=== PATIENT | female | born 1980 | race African-American/Black ===

== ENCOUNTER 2016-06-25 08:02 | Inpatient (IN) | payer BC, OTHER ==
[2016-06-25] MEDS ORDERED: GLYCOPYRROLATE INJ 0.4 MG/2 ML VIAL ONE (08:07)
[2016-06-25] MEDS ORDERED: NEOSTIGMINE METHYLSULFATE 10 MG/10 ML VIAL ONE (08:07)
[2016-06-25] MEDS ORDERED: SUCCINYLCHOLINE CHLORIDE INJ 200 MG/10 ML VIAL ONE (08:07)
[2016-06-25] MEDS ORDERED: ROCURONIUM BROMIDE INJ 50 MG/5 ML VIAL IV ONE (08:07)
[2016-06-25] MEDS ORDERED: ACETAMINOPHEN 325 MG TABLET PO ONE (10:14)
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
[2016-06-25 10:34] LABS: ABSOLUTE BASOPHILS # (AUTO) 0.1 10^3/uL (0.0-0.2); ABSOLUTE EOSINOPHILS # (AUTO) 0.2 10^3/uL (0.0-0.6); ABSOLUTE LYMPHOCYTES (AUTO) 1.7 10^3/uL (0.5-4.7); ABSOLUTE MONOCYTES (AUTO) 0.7 10^3/uL (0.1-1.4); ABSOLUTE NEUT (AUTO) 11.9 10^3/uL (1.7-8.2); BASOPHILS % (AUTO) 0.7 % (0-2); EOSINOPHILS % (AUTO) 1.5 % (0-6); HEMATOCRIT 36.3 % (36.0-47.0); HEMOGLOBIN 11.8 g/dL (12.0-15.5); HGB HCT DIFFERENCE -0.9; LYMPHOCYTES % (AUTO) 11.6 % (13-45); MEAN CORPUSCULAR HEMOGLOBIN 25.9 pg (27.0-33.4); MEAN CORPUSCULAR HGB CONC 32.5 g/dL (32.0-36.0); MEAN CORPUSCULAR VOLUME 80 fl (80-97); MONOCYTES % (AUTO) 5.1 % (3-13); RED BLOOD COUNT 4.55 10^6/uL (3.72-5.28); RED CELL DISTRIBUTION WIDTH 17.6 % (11.5-14.0); SEGMENTED NEUTROPHILS % (AUTO) 81.1 % (42-78); WHITE BLOOD COUNT 14.7 10^3/uL (4.0-10.5)
[2016-06-25 10:57] LABS: APPEARANCE,URINE SLIGHTLY-CLOUDY; BILIRUBIN,URINE NEGATIVE (NEGATIVE); GLUCOSE, URINE NEGATIVE (NEGATIVE); KETONES,URINE NEGATIVE (NEGATIVE); LEUKOCYTE ESTERASE,URINE NEGATIVE (NEGATIVE); NITRITE,URINE NEGATIVE (NEGATIVE); PROTEIN,URINE NEGATIVE (NEGATIVE); URINE SPECIFIC GRAVITY 1.016
[2016-06-25 11:01] LABS: ALANINE AMINOTRANSFERASE 20 U/L (9-52); ALBUMIN 3.5 g/dL (3.5-5.0); ALKALINE PHOSPHATASE 147 U/L (38-126); ANION GAP 11 (5-19); ASPARTATE AMINO TRANSFERASE 13 U/L (14-36); BILIRUBIN,TOTAL 0.5 mg/dL (0.2-1.3); BLOOD UREA NITROGEN 12 mg/dL (7-20); CALCIUM 9.9 mg/dL (8.4-10.2); CARBON DIOXIDE 30 mmol/L (22-30); CHLORIDE 101 mmol/L (98-107); CREATININE RESULT 0.66 mg/dL (0.52-1.25); GLUCOSE 87 mg/dL (75-110); SODIUM 141.5 mmol/L (137-145); TOTAL PROTEIN 7.5 g/dL (6.3-8.2)
[2016-06-25] MEDS ORDERED: PIPERACILLIN/TAZOBACTAM 4.5 GM VIAL IV ONE (13:14)
[2016-06-25] MEDS ORDERED: NORMAL SALINE 1000 ML 1,000 ML IV PRN (13:14)
[2016-06-25] MEDS ORDERED: MORPHINE SULFATE 10 MG/ML INJ IV ONE (14:05)
[2016-06-25] MEDS ORDERED: ACETAMINOPHEN 100 ML IV ONE (17:31)
[2016-06-25] MEDS ORDERED: FENTANYL CITRATE INJ/PF 100 MCG/2 ML AMPUL ONE ×2 (17:31→19:35)
[2016-06-25] MEDS ORDERED: HYDROMORPHONE HCL INJ/PF 2 MG/ML AMPULE ONE (17:31)
[2016-06-25] MEDS ORDERED: PROPOFOL INJ 200 MG/20 ML VIAL IV ONE (17:31)
[2016-06-25] MEDS ORDERED: MIDAZOLAM 2 MG/2 ML INJ ONE (17:31)
[2016-06-25] MEDS ORDERED: BUPIVACAINE HCL 0.5%-EPI 1:200000 INJ/PF 30 ML VIAL ONE (17:48)
[2016-06-25] MEDS ORDERED: ONDANSETRON HCL INJ/PF 4 MG/2 ML SDV IV PRN ×2 (18:16→20:48)
[2016-06-25] MEDS ORDERED: FENTANYL CITRATE INJ/PF 100 MCG/2 ML AMPUL IV PRN ×3 (18:16)
[2016-06-25] MEDS: FENTANYL CITRATE INJ/PF 100 MCG/2 ML AMPUL ONE ×2 (20:38→20:50)
[2016-06-25] MEDS ORDERED: HYDROCODONE/ACETAMINOPHEN 5-325 MG TABLET PO PRN (20:47)
[2016-06-25] MEDS: HYDROMORPHONE HCL INJ/PF 2 MG/ML AMPULE ONE ×4 (21:07→21:37)
[2016-06-25] MEDS: PIPERACILLIN/TAZOBACTAM 3.375 GM VIAL IV PRN (21:45)
[2016-06-25] MEDS ORDERED: HYDROMORPHONE HCL INJ/PF 2 MG/ML AMPULE IV PRN (21:59)
[2016-06-25] MEDS ORDERED: PIPERACILLIN SODIUM/TAZOBACTAM 3.375 GM in NORMAL SALINE 100 ML IV SCH (22:00)
[2016-06-25] MEDS: HYDROMORPHONE HCL INJ/PF 2 MG/ML AMPULE IV PRN (22:52)
[2016-06-26] MEDS: POTASSI CL 20 MEQ/D5-1/2NS 1L 1000 ML IV PRN ×3 (00:53→23:09)
[2016-06-26] MEDS ORDERED: PIPERACILLIN/TAZOBACTAM 3.375 GM VIAL IV ONE (01:00)
[2016-06-26] MEDS: HYDROMORPHONE HCL INJ/PF 2 MG/ML AMPULE IV PRN ×7 (01:41→22:51)
[2016-06-26] MEDS: PIPERACILLIN/TAZOBACTAM 3.375 GM VIAL IV PRN (04:18)
[2016-06-26] MEDS ORDERED: SIMETHICONE 80 MG TAB.CHEW PO ONE (04:30)
--- NOTE | 2016-06-26 05:13 | OPERATIVE REPORT E ---
Operative Report NAME: DON KING : 1980 AGE: 35Y DATE OF SURGERY: 06/25/2016 ROOM: 211 PREOPERATIVE DIAGNOSIS: 1. Intra-abdominal abscess. 2. Pericecal abscess. 3. Possible cecal diverticulitis. 4. Possible Crohn disease. 5. Possible appendicular abscess. POSTOPERATIVE DIAGNOSES: 1. Necrotic cecum. 2. Pericecal abscess, uncertain etiology could be perforated cecal diverticulitis, could be perforated Crohn disease or long time complicated appendicitis with abscess with a necrotic cecum. OPERATION: 1. Laparoscopic-assisted drainage of intra-abdominal paracolic, pericecal abscess. 2. Laparoscopic-assisted resection of the right colon up to ascending colon terminal ileum with ileum to distal ascending colon anastomosis of the right colon dissection. SURGEON: DIRK FLORES M.D. ANESTHESIA: General. BLOOD LOSS: Less than 100 mL. SPECIMENS: Ileostomy segment of ileum. HISTORY/INDICATIONS: The patient presented to the Emergency Room with a 2-week history of increasing abdominal pain, nausea and fever. Upon examination in the Emergency Room, she did have a pretty severe tenderness. CT scan revealed pericecal paracolic abscess, possibly cecal perforation. She was noted to have an emergency surgery prepared for emergency room, taken to operating room with informed consent with the possibility of bowel resection. DESCRIPTION OF OPERATION: The patient was given Zosyn which was continued. Abdomen was cleansed and draped as a sterile field. Initially, a 5 mm trocar inserted in the suprapubic area and another 5 mm in the supraumbilical area with OPTIVIEW and a 12 mm in the left upper quadrant area. Findings, a large phlegmon in the pericecal paracolic area, and the cecum itself was pretty necrotic, gangrenous with a lot of induration around that area. Initially, terminal ileum and the cecum was mobilized lateral to medial clearly, safely, securely. Once it was mobilized, there was a large abscess in the pericecal area beneath the ascending colon. It was drained completely. After that, once the abscess was drained from the terminal ileum and hepatic flexure, it was pretty obvious that we needed to dissect the cecum, terminal ileum, and ascending colon. For that reason, terminal ileum completely mobilized; and then the transverse colon was mobilized from mid transverse colon to hepatic flexure area. Hepatic flexure at this point was completely mobilized. After that, the ileocolic ligaments were divided after dissecting away from the duodenum. Once it was completely mobilized and devascularized after draining of the abscess, now the mid abdomen around the periumbilical area was opened up, wound protector was placed through which the specimen , which was basically terminal ileum and also ascending colon. Now, the terminal ileum was resected approximately 4-5 cm away from the cecum and then the ascending colon was divided, close to hepatic flexure area. After that, specimen achieved and then abdominal cavity was copiously irrigated and suctioned out, and then anastomosis was performed within the terminal ileum and distal ascending colon closed to hepatic flexure by using a #60 stapler and 3 points of #60 staplers closed by using another thicker stapler. Stapling corners were reinforced by using 2-0 and 3-0 silk sutures in inverting seromuscular sutures. After having perfect anastomosis with excellent vascularity confirmed, abdominal cavity again copiously irrigated and suctioned out, and then a VILMA drain was placed in the right paracolic gutter, brought out through 5 mm trocar incision in the suprapubic area. After that, omentum was placed on top of the bowel loops, and then adhesive barrier was placed within the mid abdomen, small incisions was closed by using #1 looped PDS for the fascia and the subcutaneous layers closed by using 3-0 Vicryl. Skin was left open. Other trocar incision closed by using 3-0 Vicryl. Dressing was then applied. The patient was stable through the operation without any problems, shifted to recovery room in stable condition. DICTATING PHYSICIAN: DIRK FLORES M.D. [id number] [facility]#: [id number] 2017 ID: [id number] JOB#: [id number] ACCT: [id number] cc:DIRK FLORES M.D. > MTDD
[2016-06-26] MEDS: KETOROLAC TROMETHAMINE INJ/PF 30 MG/1 ML SDV INJ PRN ×2 (06:39→14:19)
--- NOTE | 2016-06-26 06:53 | PDOC PROGRESS REPORT ---
Subjective Progress Note for:: 06/26/16 Subjective:: c/o abdominal pain post op Physical Exam Vital Signs: Temp Pulse Resp BP Pulse Ox 98.2 F 96 16 138/78 H 100 06/26/16 00:49 06/26/16 00:49 06/26/16 00:49 06/26/16 00:49 06/26/16 00:49 Intake & Output 06/24/16 06/25/16 06/26/16 05:59 06:59 06:59 Intake Total 8900 Output Total 6497.5 Balance 2402.5 Weight 111.5 kg GI/Abdominal exam: PRESENT: other - Soft abdomen VILMA drain Serous Results Impressions: Transvaginal US 06/25/16 09:46 IMPRESSION: 1. Status post hysterectomy and right oophorectomy. Incidental left ovarian cyst without suspicious features. Abdomen/Pelvis CT 06/25/16 11:38 IMPRESSION: 1. Pathology in the right lower quadrant appears to be predominantly related to the base of the cecum. Suspect contained perforation with abscess here. This could be related to right colonic diverticulitis or other inflammatory disease. No overt inflammation of the terminal ileum. The appendix looks fairly normal. Appendicitis with periappendiceal abscess is therefore felt to be unlikely. Malignancy is also in the differential, but felt to be less likely in a patient of this age without any reported risk factors for such. Assessment & Plan - Plan Summary Plan Summary: Gangrenous / necrotic cecum with abscess s/p lap assisted right colectomy , with drainage of abscess post op pain, Sri Pain management IV antibiotics Ambulate
[2016-06-26] MEDS: ENOXAPARIN SODIUM INJ 40 MG/0.4 ML DISP.SYRIN SUBCUT SCH (08:22)
--- NOTE | 2016-06-26 11:08 | PDOC PROGRESS REPORT ---
Subjective Progress Note for:: 06/26/16 Subjective:: Patient is possibly 15 hours status post arthroscopic hand-assisted right hemicolectomy for inflammatory mass involving the cecum. She's doing well overnight. She still has Flores catheter and nasogastric tube in position. She is requiring pain medication. Physical Exam Vital Signs: Temp Pulse Resp BP Pulse Ox 98.9 F 75 20 115/85 98 06/26/16 10:00 06/26/16 10:00 06/26/16 10:00 06/26/16 10:00 06/26/16 10:00 Intake & Output 06/25/16 06/26/16 06/27/16 06:59 06:59 06:59 Intake Total 8900 Output Total 6497.5 Balance 2402.5 Weight 111.5 kg General appearance: PRESENT: other - Very sleepy GI/Abdominal exam: PRESENT: other - Abdominal incision dry and intact. The abdomen is soft no peritoneal signs no rigidity Results Impressions: Transvaginal US 06/25/16 09:46 IMPRESSION: 1. Status post hysterectomy and right oophorectomy. Incidental left ovarian cyst without suspicious features. Abdomen/Pelvis CT 06/25/16 11:38 IMPRESSION: 1. Pathology in the right lower quadrant appears to be predominantly related to the base of the cecum. Suspect contained perforation with abscess here. This could be related to right colonic diverticulitis or other inflammatory disease. No overt inflammation of the terminal ileum. The appendix looks fairly normal. Appendicitis with periappendiceal abscess is therefore felt to be unlikely. Malignancy is also in the differential, but felt to be less likely in a patient of this age without any reported risk factors for such. No recent labs today. Assessment & Plan - Diagnosis (1) Mass of cecum Is this a current diagnosis for this admission?: YesPlan: Patient is a 15 hours status post exploratory laparoscopic surgery were right hemicolectomy for cecal mass presumably due to localized cecal perforation with abscess. She is doing reasonably well recorded premedication. She is hemodynamically stable We will discontinue Flores catheter, and clamp NG tube. The ng tube may Need to stay in place. We will ambulate the patient as well. Pathology report pending. We will also continue intravenous antibiotics. - Time Time Spent with patient: 15-24 minutes
[2016-06-26] MEDS: PIPERACILLIN SODIUM/TAZOBACTAM 3.375 GM in NORMAL SALINE 100 ML IV SCH ×2 (13:16→18:38)
[2016-06-27] MEDS: KETOROLAC TROMETHAMINE INJ/PF 30 MG/1 ML SDV INJ PRN ×3 (00:54→11:57)
[2016-06-27] MEDS: PIPERACILLIN SODIUM/TAZOBACTAM 3.375 GM in NORMAL SALINE 100 ML IV SCH ×3 (01:15→18:02)
[2016-06-27] MEDS: HYDROMORPHONE HCL INJ/PF 2 MG/ML AMPULE IV PRN ×2 (04:07→08:25)
[2016-06-27] MEDS: ENOXAPARIN SODIUM INJ 40 MG/0.4 ML DISP.SYRIN SUBCUT SCH (08:26)
[2016-06-27] MEDS ORDERED: ALBUTEROL SULFATE 0.042% NEB (1.25 MG/3 ML) AMPUL NEB PRN (09:56)
[2016-06-27] MEDS ORDERED: LISINOPRIL PO SCH (10:00)
[2016-06-27] MEDS ORDERED: HYDROCHLOROTHIAZIDE PO SCH (10:00)
[2016-06-27] MEDS ORDERED: [UNRECOGNIZED DRUG - OTHER] PO SCH (10:00)
[2016-06-27] MEDS: POTASSI CL 20 MEQ/D5-1/2NS 1L 1000 ML IV PRN ×2 (10:22→22:34)
--- NOTE | 2016-06-27 10:33 | PROGRESS NOTE E ---
Progress Note NAME: DON KING : 1980 AGE: 35Y DATE: 06/27/2016 ROOM: 211 The patient is 2 days postoperative from a laparoscopic assisted right hemicolectomy due to unknown perforation. Pathology pending. SUBJECTIVE: The patient has had flatus yesterday but none today. She denies any nausea or vomiting currently. She is still having some incisional discomfort. OBJECTIVE: VITAL SIGNS: Temperature is 98.4, pulse rate 110, blood pressure 119/71. ABDOMEN: Patient's abdominal incision is clean without any evidence of infection. LUNGS: Decreased motion in the bases with mild wheezing. ASSESSMENT: 1. STATUS POST LAPAROSCOPIC RIGHT HEMICOLECTOMY, POSTOPERATIVE DAY 2. Awaiting return of bowel function. Her NG tube has been clamped without any nausea and will be removed. I would wait until she has further bowel function before starting liquid diet. I would recommend mobilization. We will start a AUTOMATIC DOOR MECHANIC for adequate pain control. 2. HISTORY OF ASTHMA. We will start her inhalers. PLAN: 1. AUTOMATIC DOOR MECHANIC. 2. Continue mobilization. 3. Continue IV antibiotics. 4. Await final pathology. 5. Keep VILMA drain in at this time as it is serosanguineous. 6. We will follow her tachycardia and see if adequate pain control will reduce it along with giving her inhaler for her asthma. DICTATING PHYSICIAN: LAWRENCE KING M.D. [id number] PHY#: [id number] ID: [id number] JOB#: [id number] ACCT: [id number] cc: >
[2016-06-27 10:46] LABS: HEMATOCRIT 28.3 % (36.0-47.0); HGB HCT DIFFERENCE -1.3; MEAN CORPUSCULAR HEMOGLOBIN 25.4 pg (27.0-33.4); MEAN CORPUSCULAR HGB CONC 31.9 g/dL (32.0-36.0); MEAN CORPUSCULAR VOLUME 80 fl (80-97); RED BLOOD COUNT 3.55 10^6/uL (3.72-5.28); RED CELL DISTRIBUTION WIDTH 17.4 % (11.5-14.0)
[2016-06-27] MEDS ORDERED: HYDROCHLOROTHIAZIDE 12.5 MG CAPSULE PO ONE (11:00)
[2016-06-27] MEDS ORDERED: LISINOPRIL 10 MG TABLET PO ONE (11:00)
[2016-06-27 11:05] LABS: ALANINE AMINOTRANSFERASE 24 U/L (9-52); ALBUMIN 2.4 g/dL (3.5-5.0); ALKALINE PHOSPHATASE 97 U/L (38-126); ANION GAP 7 (5-19); ASPARTATE AMINO TRANSFERASE 9 U/L (14-36); BILIRUBIN,TOTAL 0.3 mg/dL (0.2-1.3); BLOOD UREA NITROGEN 10 mg/dL (7-20); CALCIUM 8.6 mg/dL (8.4-10.2); CARBON DIOXIDE 24 mmol/L (22-30); CHLORIDE 110 mmol/L (98-107); CREATININE RESULT 0.69 mg/dL (0.52-1.25); GLUCOSE 94 mg/dL (75-110); MAGNESIUM 1.9 mg/dL (1.6-2.3); PHOSPHORUS 2.6 mg/dL (2.5-4.5); SODIUM 141.4 mmol/L (137-145); TOTAL PROTEIN 5.7 g/dL (6.3-8.2)
[2016-06-27 11:11] LABS: BASOPHILS % (MANUAL) 0 % (0-2); EOSINOPHILS % (MANUAL) 1 % (0-6); LYMPHOCYTES % (MANUAL) 9 % (13-45); TOTAL CELLS COUNTED 100
[2016-06-27 11:12] LABS: TOXIC GRANULATION SLIGHT
[2016-06-27 11:13] LABS: ANISOCYTOSIS 1+; MICROCYTOSIS SLIGHT; TARGET CELLS 1+
[2016-06-27] MEDS: ALBUTEROL SULFATE HFA (90 MCG/PUFF) 200 PUFF/8.5 GM MDI IH PRN ×2 (12:08→17:26)
[2016-06-27] MEDS: HYDROMORPHONE HCL 30 MG/60 ML RTUINJ IV PRN (12:29)
[2016-06-27 17:51] LABS: ABSOLUTE BASOPHILS # (AUTO) 0.1 10^3/uL (0.0-0.2); ABSOLUTE EOSINOPHILS # (AUTO) 0.1 10^3/uL (0.0-0.6); ABSOLUTE MONOCYTES (AUTO) 0.8 10^3/uL (0.1-1.4); BASOPHILS % (AUTO) 0.4 % (0-2); EOSINOPHILS % (AUTO) 0.4 % (0-6); HEMATOCRIT 29.4 % (36.0-47.0); HEMOGLOBIN 9.4 g/dL (12.0-15.5); HGB HCT DIFFERENCE -1.2; LYMPHOCYTES % (AUTO) 9.8 % (13-45); MEAN CORPUSCULAR HEMOGLOBIN 25.4 pg (27.0-33.4); MEAN CORPUSCULAR HGB CONC 31.9 g/dL (32.0-36.0); MEAN CORPUSCULAR VOLUME 80 fl (80-97); MONOCYTES % (AUTO) 3.9 % (3-13); RED BLOOD COUNT 3.69 10^6/uL (3.72-5.28); RED CELL DISTRIBUTION WIDTH 17.5 % (11.5-14.0); SEGMENTED NEUTROPHILS % (AUTO) 85.5 % (42-78); WHITE BLOOD COUNT 19.9 10^3/uL (4.0-10.5)
[2016-06-28] MEDS: PIPERACILLIN SODIUM/TAZOBACTAM 3.375 GM in NORMAL SALINE 100 ML IV SCH ×3 (02:36→17:06)
[2016-06-28 06:58] LABS: ABSOLUTE BASOPHILS # (AUTO) 0.1 10^3/uL (0.0-0.2); ABSOLUTE EOSINOPHILS # (AUTO) 0.2 10^3/uL (0.0-0.6); ABSOLUTE LYMPHOCYTES (AUTO) 1.8 10^3/uL (0.5-4.7); ABSOLUTE MONOCYTES (AUTO) 0.7 10^3/uL (0.1-1.4); BASOPHILS % (AUTO) 0.8 % (0-2); EOSINOPHILS % (AUTO) 1.3 % (0-6); HEMATOCRIT 27.2 % (36.0-47.0); HEMOGLOBIN 8.8 g/dL (12.0-15.5); HGB HCT DIFFERENCE -0.8; LYMPHOCYTES % (AUTO) 11.6 % (13-45); MEAN CORPUSCULAR HEMOGLOBIN 25.7 pg (27.0-33.4); MEAN CORPUSCULAR HGB CONC 32.4 g/dL (32.0-36.0); MEAN CORPUSCULAR VOLUME 79 fl (80-97); MONOCYTES % (AUTO) 4.5 % (3-13); RED BLOOD COUNT 3.45 10^6/uL (3.72-5.28); RED CELL DISTRIBUTION WIDTH 17.8 % (11.5-14.0); SEGMENTED NEUTROPHILS % (AUTO) 81.8 % (42-78); WHITE BLOOD COUNT 15.8 10^3/uL (4.0-10.5)
[2016-06-28 07:20] LABS: ANION GAP 9 (5-19); BLOOD UREA NITROGEN 8 mg/dL (7-20); CALCIUM 8.8 mg/dL (8.4-10.2); CARBON DIOXIDE 23 mmol/L (22-30); CHLORIDE 108 mmol/L (98-107); CREATININE RESULT 0.72 mg/dL (0.52-1.25); GLUCOSE 92 mg/dL (75-110); SODIUM 140.3 mmol/L (137-145)
[2016-06-28] MEDS: ALBUTEROL SULFATE HFA (90 MCG/PUFF) 200 PUFF/8.5 GM MDI IH PRN ×2 (08:51→14:33)
[2016-06-28] MEDS: ENOXAPARIN SODIUM INJ 40 MG/0.4 ML DISP.SYRIN SUBCUT SCH (09:20)
[2016-06-28] MEDS: LISINOPRIL 10 MG TABLET PO SCH (09:21)
[2016-06-28] MEDS: HYDROCHLOROTHIAZIDE 12.5 MG CAPSULE PO SCH (09:22)
[2016-06-28] MEDS: POTASSI CL 20 MEQ/D5-1/2NS 1L 1000 ML IV PRN ×2 (09:26→21:50)
--- NOTE | 2016-06-28 16:03 | PROGRESS NOTE E ---
Progress Note NAME: DON KING : 1980 AGE: 35Y DATE: 06/28/2016 ROOM: 211 SUBJECTIVE: The patient is a 35-year-old female who underwent a laparoscopic-assisted right hemicolectomy 3 days ago. The patient feels that her pain is better controlled with the TUBER MACHINE OPERATOR HELPER. She was placed on her inhalers and also feels that her breathing is better. The patient is having flatus currently. OBJECTIVE: LUNGS: Clear with better air movement. ABDOMEN: Soft, mildly distended. Incisions are clean. VILMA drain serosanguineous. VITAL SIGNS: Heart rate 100, respiratory 20, blood pressure 140/75. DIAGNOSTIC DATA: White blood cell count is 16. Pathology of the colon is pending at the current time; however, in speaking with the pathologist, she does have perforated colon cancer. ASSESSMENT: 1. PERFORATED COLON CANCER WITH ABSCESS, STATUS POST LAPAROSCOPIC RIGHT HEMICOLECTOMY. She is starting to regain bowel function. Her white blood cell count had increased but currently is down to 16,000. She will need to be followed closely to looking for any infection that may potentially develop. 2. ANEMIA WITH HEMOGLOBIN 8.8 THAT APPEARS TO BE STABLE. We will continue to follow. 3. ASTHMA, CURRENTLY ON INHALERS and improved. 4. TACHYCARDIA THAT IS IMPROVING WITH BETTER PAIN CONTROL AND INHALERS. PLAN: 1. Continue IV antibiotics and follow white cell count. 2. Start clear liquids. 3. Await final pathology. DICTATING PHYSICIAN: LAWRENCE KING M.D. [id number] PHY#: [id number] ID: [id number] JOB#: [id number] ACCT: [id number] cc: > [facility]
[2016-06-29] MEDS: PIPERACILLIN SODIUM/TAZOBACTAM 3.375 GM in NORMAL SALINE 100 ML IV SCH (02:06)
[2016-06-29] MEDS: HYDROMORPHONE HCL 30 MG/60 ML RTUINJ IV PRN (04:41)
[2016-06-29 06:55] LABS: ABSOLUTE BASOPHILS # (AUTO) 0.1 10^3/uL (0.0-0.2); ABSOLUTE EOSINOPHILS # (AUTO) 0.2 10^3/uL (0.0-0.6); ABSOLUTE LYMPHOCYTES (AUTO) 1.6 10^3/uL (0.5-4.7); ABSOLUTE MONOCYTES (AUTO) 0.8 10^3/uL (0.1-1.4); ABSOLUTE NEUT (AUTO) 12.7 10^3/uL (1.7-8.2); BASOPHILS % (AUTO) 0.7 % (0-2); EOSINOPHILS % (AUTO) 1.3 % (0-6); HEMATOCRIT 30.9 % (36.0-47.0); HGB HCT DIFFERENCE -0.9; LYMPHOCYTES % (AUTO) 10.2 % (13-45); MEAN CORPUSCULAR HEMOGLOBIN 25.5 pg (27.0-33.4); MEAN CORPUSCULAR HGB CONC 32.5 g/dL (32.0-36.0); MEAN CORPUSCULAR VOLUME 79 fl (80-97); RED BLOOD COUNT 3.93 10^6/uL (3.72-5.28); RED CELL DISTRIBUTION WIDTH 17.3 % (11.5-14.0); SEGMENTED NEUTROPHILS % (AUTO) 82.8 % (42-78); WHITE BLOOD COUNT 15.4 10^3/uL (4.0-10.5)
[2016-06-29 07:14] LABS: ANION GAP 8 (5-19); BLOOD UREA NITROGEN 6 mg/dL (7-20); CALCIUM 8.8 mg/dL (8.4-10.2); CARBON DIOXIDE 27 mmol/L (22-30); CHLORIDE 105 mmol/L (98-107); CREATININE RESULT 0.64 mg/dL (0.52-1.25); GLUCOSE 116 mg/dL (75-110); POTASSIUM 3.8 mmol/L (3.6-5.0); SODIUM 140.3 mmol/L (137-145)
--- NOTE | 2016-06-29 08:16 | PDOC CONSULTATION ---
Consultation Consult Date: 06/29/16 Attending physician:: HAL DELANEY Consult reason:: Newly noted stage 3 colon cancer History of Present Illness Admission Date/PCP: 06/25/16 13:54 OREN HERNÁNDEZ Patient complains of: Colon cancer History of Present Illness: DON KING is a 35 year old female with newly noted stage III colon cancer. She presented with a two-week history of increasing right lower quadrant pain, she also had a 20 pound weight loss in about 4 months as well as increasing constipation. Ultimately she presented to the ED here at [facility], she had a CT of the abdomen pelvis which showed concern of appendicitis, cecal abscess. There is no abnormality noted in the retroperitoneum or the liver. She was then taken to surgery and had a laparoscopic-assisted right hemicolectomy, abscess drainage. Unexpectedly, the pathology returned as well- differentiated adenocarcinoma of the appendix/cecum. There was cecal perforation. 2/14 lymph nodes were positive. There was a mesenteric deposit without lymph node noted. Final stage was T4 N1 M0 so stage III colon cancer. She has a VILMA drain in and overnight the drainage seems to have picked up, but it 's mostly serosanguineous. She is having continued pain, requiring LAWN TECHNICIAN. She is getting up and around. Of note she does have fairly extensive history of cancer in the family, her father at age 40 of stomach cancer, maternal grandmother had colon cancer at age 82, a maternal aunt in her 60s of brain cancer, another maternal aunt had breast cancer in her 40s and is now 81, another maternal aunt had breast cancer at 50 and is now in her 60s. Past Medical History Cardiac Medical History: Reports: Hypertension Denies: Coronary Artery Disease, Myocardial Infarction Pulmonary Medical History: Reports: Asthma, Bronchitis Denies: Chronic Obstructive Pulmonary Disease (COPD), Pneumonia, Tuberculosis Neurological Medical History: Denies: Seizures GI Medical History: Reports: Gastroesophageal Reflux Disease Musculoskeltal Medical History: Denies: Arthritis Psychiatric Medical History: Reports: Bipolar Disorder, Depression Hematology: Reports: Anemia Past Surgical History Past Surgical History: Reports: Cholecystectomy, Hysterectomy - BRI, bilateral ovaries are still in, Orthopedic Surgery - Right Femur fx with heaven placement Social History Information Source: Patient, Relative Lives with: Family Smoking Status: Current Every Day Smoker Cigarettes Packs Per Day: 0.5 Last Time Smoked: T Frequency of Alcohol Use: None Hx Recreational Drug Use: No Hx Prescription Drug Abuse: No - Advance Directive Resuscitation Status: Full Code Family History Family History: DM, Hypertension, Other - anemia, cancer as in history of present illness Parental Family History Reviewed: Yes Children Family History Reviewed: Yes Sibling(s) Family History Reviewed.: Yes Medication/Allergy Home Medications: Lisinopril/Hydrochlorothiazide [Lisinopril-Hctz 20-12.5 mg Tab] 12.5 mg PO DAILY 06/25/16 Oxymorphone HCl [Oxymorphone HCl ER] 10 mg PO Q12 06/25/16 Allergies/Adverse Reactions: risperidone [From Risperdal] Allergy (Unknown, Verified 06/25/16 08:17) tramadol [Tramadol] Adverse Reaction (Intermediate, Verified 06/25/16 08:17) Nausea ibuprofen [Ibuprofen] Adverse Reaction (Mild, Verified 06/25/16 08:17) Nausea Review of Systems Constitutional: ABSENT: chills, fever(s), headache(s), weight gain, weight loss Eyes: ABSENT: visual disturbances Ears: ABSENT: hearing changes Cardiovascular: ABSENT: chest pain, dyspnea on exertion, edema, orthropnea, palpitations Respiratory: ABSENT: cough, hemoptysis Gastrointestinal: ABSENT: abdominal pain, constipation, diarrhea, hematemesis, hematochezia, nausea, vomiting Genitourinary: ABSENT: dysuria, hematuria Musculoskeletal: ABSENT: joint swelling Integumentary: ABSENT: rash, wounds Neurological: ABSENT: abnormal gait, abnormal speech, confusion, dizziness, focal weakness, syncope Psychiatric: ABSENT: anxiety, depression, homidical ideation, suicidal ideation Endocrine: ABSENT: cold intolerance, heat intolerance, polydipsia, polyuria Hematologic/Lymphatic: ABSENT: easy bleeding, easy bruising Physical Exam Vital Signs: Temp Pulse Resp BP Pulse Ox 98.8 F 110 H 20 131/81 H 97 06/28/16 19:50 06/29/16 04:03 06/29/16 07:00 06/29/16 04:03 06/29/16 07:00 Intake & Output 06/28/16 06/29/16 06/30/16 06:59 06:59 06:59 Intake Total 6123 938 5008 Output Total 2300 4110 Balance -1040 -3990 1200 General appearance: PRESENT: no acute distress, well-developed, well-nourished Head exam: PRESENT: atraumatic, normocephalic Eye exam: PRESENT: conjunctiva pink, EOMI, PERRLA. ABSENT: scleral icterus Ear exam: PRESENT: normal external ear exam Mouth exam: PRESENT: moist, tongue midline Neck exam: ABSENT: carotid bruit, JVD, lymphadenopathy, thyromegaly Respiratory exam: PRESENT: clear to auscultation colt. ABSENT: rales, rhonchi, wheezes Cardiovascular exam: PRESENT: RRR. ABSENT: diastolic murmur, rubs, systolic murmur Pulses: PRESENT: normal dorsalis pedis pul Vascular exam: PRESENT: normal capillary refill GI/Abdominal exam: PRESENT: normal bowel sounds, soft. ABSENT: distended, guarding, mass, organolmegaly, rebound, tenderness Rectal exam: PRESENT: deferred Extremities exam: PRESENT: full ROM. ABSENT: calf tenderness, clubbing, pedal edema Neurological exam: PRESENT: alert, awake, oriented to person, oriented to place , oriented to time, oriented to situation, CN II-XII grossly intact. ABSENT: motor sensory deficit Psychiatric exam: PRESENT: appropriate affect, normal mood. ABSENT: homicidal ideation, suicidal ideation Skin exam: PRESENT: dry, intact, warm. ABSENT: cyanosis, rash Results Laboratory Results: 06/29/16 06:22 06/29/16 06:22 06/29/16 06/29/16 06:22 06:22 WBC 15.4 H RBC 3.93 Hgb 10.0 L Hct 30.9 L MCV 79 L MCH 25.5 L MCHC 32.5 RDW 17.3 H Plt Count 557 H Seg Neutrophils % 82.8 H Lymphocytes % 10.2 L Monocytes % 5.0 Eosinophils % 1.3 Basophils % 0.7 Absolute Neutrophils 12.7 H Absolute Lymphocytes 1.6 Absolute Monocytes 0.8 Absolute Eosinophils 0.2 Absolute Basophils 0.1 Sodium 140.3 Potassium 3.8 Chloride 105 Carbon Dioxide 27 Anion Gap 8 BUN 6 L Creatinine 0.64 Est GFR ( Amer) > 60 Est GFR (Non-Af Amer) > 60 Glucose 116 H Calcium 8.8 Impressions: Transvaginal US 06/25/16 09:46 IMPRESSION: 1. Status post hysterectomy and right oophorectomy. Incidental left ovarian cyst without suspicious features. Abdomen/Pelvis CT 06/25/16 11:38 IMPRESSION: 1. Pathology in the right lower quadrant appears to be predominantly related to the base of the cecum. Suspect contained perforation with abscess here. This could be related to right colonic diverticulitis or other inflammatory disease. No overt inflammation of the terminal ileum. The appendix looks fairly normal. Appendicitis with periappendiceal abscess is therefore felt to be unlikely. Malignancy is also in the differential, but felt to be less likely in a patient of this age without any reported risk factors for such. Status: Image reviewed by me Assessment & Plan - Diagnosis (1) Colon cancer Qualifiers: Colon location: ascending Qualified Code(s): C18.2 - Malignant neoplasm of ascending colon Is this a current diagnosis for this admission?: YesPlan: Patient with stage III colon cancer, today had an extensive discussion with family about her current status of disease and extensive care, we spent greater than 70 minutes in discussion, she will require completion of staging with CT of the chest, we will also require port placement. We would recommend adjuvant chemotherapy with FOLFOX. We would of course initiate therapy only after she is fully healed, which should at least take 4-6 weeks. She will also require genetic testing, the tumor specimen is already sent for Barrow testing, but she will require peripheral blood testing for Barrow testing as well. Given her history of breast cancer in the family BRCA testing would also be useful. Hopefully as an outpatient we could do the myriad my risk which we test for both. - Time Time Spent: Greater than 70 Minutes Critical Time spent with patient: 35 or more minutes Smoking Cessation Education: 3 to 10 minutes - Inpatient Certification Based on my medical assessment, after consideration of the patient's comorbidities, presenting symptoms, or acuity I expect that the services needed warrant INPATIENT care.: Yes I certify that my determination is in accordance with my understanding of Medicare's requirements for reasonable and necessary INPATIENT services [42 CFR 412.3e].: Yes Medical Necessity: Need For Continuous Telemetry Monitoring, Need for Pain Control, Need for Surgery
[2016-06-29] MEDS: ALBUTEROL SULFATE HFA (90 MCG/PUFF) 200 PUFF/8.5 GM MDI IH PRN ×2 (08:20→18:28)
--- NOTE | 2016-06-29 08:25 | PDOC PROGRESS REPORT ---
Subjective Progress Note for:: 06/29/16 Subjective:: Feels okay. Some right sided abdominal pain that is improving. Tolerating clears. Passing only a small amount of flatus. No bowel movement. Physical Exam Vital Signs: Temp Pulse Resp BP Pulse Ox 98.8 F 110 H 20 131/81 H 97 06/28/16 19:50 06/29/16 04:03 06/29/16 07:00 06/29/16 04:03 06/29/16 07:00 Intake & Output 06/28/16 06/29/16 06/30/16 06:59 06:59 06:59 Intake Total 7857 869 2255 Output Total 2300 4110 Balance -1040 -3990 1200 General appearance: PRESENT: no acute distress, cooperative Respiratory exam: PRESENT: clear to auscultation colt Cardiovascular exam: PRESENT: tachycardia GI/Abdominal exam: PRESENT: other - Soft, mildly distended, tenderness in the right abdomen without peritoneal signs. Wound clean dry and intact. Drain output is slightly cloudy but mostly serosanguineous nonbilious Extremities exam: PRESENT: other - No swelling and no tenderness Results Laboratory Results: 06/29/16 06:22 06/29/16 06:22 06/29/16 06/29/16 06:22 06:22 WBC 15.4 H RBC 3.93 Hgb 10.0 L Hct 30.9 L MCV 79 L MCH 25.5 L MCHC 32.5 RDW 17.3 H Plt Count 557 H Seg Neutrophils % 82.8 H Lymphocytes % 10.2 L Monocytes % 5.0 Eosinophils % 1.3 Basophils % 0.7 Absolute Neutrophils 12.7 H Absolute Lymphocytes 1.6 Absolute Monocytes 0.8 Absolute Eosinophils 0.2 Absolute Basophils 0.1 Sodium 140.3 Potassium 3.8 Chloride 105 Carbon Dioxide 27 Anion Gap 8 BUN 6 L Creatinine 0.64 Est GFR ( Amer) > 60 Est GFR (Non-Af Amer) > 60 Glucose 116 H Calcium 8.8 Impressions: Transvaginal US 06/25/16 09:46 IMPRESSION: 1. Status post hysterectomy and right oophorectomy. Incidental left ovarian cyst without suspicious features. Abdomen/Pelvis CT 06/25/16 11:38 IMPRESSION: 1. Pathology in the right lower quadrant appears to be predominantly related to the base of the cecum. Suspect contained perforation with abscess here. This could be related to right colonic diverticulitis or other inflammatory disease. No overt inflammation of the terminal ileum. The appendix looks fairly normal. Appendicitis with periappendiceal abscess is therefore felt to be unlikely. Malignancy is also in the differential, but felt to be less likely in a patient of this age without any reported risk factors for such. Assessment & Plan - Diagnosis (1) Colon cancer Qualifiers: Colon location: ascending Qualified Code(s): C18.2 - Malignant neoplasm of ascending colon Is this a current diagnosis for this admission?: YesPlan: Status post right hemicolectomy. Appears to have low-grade sepsis still. With her mild tachycardia, leukocytosis and tenderness in the right abdomen and cloudy drain output. Will not advance diet at this time. Switch her antibiotics over to Levaquin and Flagyl. Encourage ambulation
[2016-06-29] MEDS: ENOXAPARIN SODIUM INJ 40 MG/0.4 ML DISP.SYRIN SUBCUT SCH (09:42)
[2016-06-29] MEDS: HYDROCHLOROTHIAZIDE 12.5 MG CAPSULE PO SCH (09:43)
[2016-06-29] MEDS: LISINOPRIL 10 MG TABLET PO SCH (09:43)
[2016-06-29] MEDS ORDERED: LEVOFLOXACIN 500 MG/D5W RTU 100 ML IV SCH (10:00)
[2016-06-29] MEDS: POTASSI CL 20 MEQ/D5-1/2NS 1L 1,000 ML IV PRN (10:10)
[2016-06-29] MEDS: METRONIDAZOLE 500 MG/NS RTU 100 ML IV SCH ×2 (11:22→18:06)
[2016-06-29] MEDS: AMPICILLIN SODIUM/SULBACTAM NA 3 GM in NORMAL SALINE 100 ML IV SCH ×2 (13:08→17:08)
[2016-06-30] MEDS: AMPICILLIN SODIUM/SULBACTAM NA 3 GM in NORMAL SALINE 100 ML IV SCH ×4 (00:22→17:41)
[2016-06-30] MEDS: METRONIDAZOLE 500 MG/NS RTU 100 ML IV SCH ×4 (01:00→18:58)
[2016-06-30] MEDS: HYDROMORPHONE HCL 30 MG/60 ML RTUINJ IV PRN (04:44)
[2016-06-30 07:10] LABS: ABSOLUTE BASOPHILS # (AUTO) 0.1 10^3/uL (0.0-0.2); ABSOLUTE EOSINOPHILS # (AUTO) 0.4 10^3/uL (0.0-0.6); ABSOLUTE LYMPHOCYTES (AUTO) 1.6 10^3/uL (0.5-4.7); ABSOLUTE MONOCYTES (AUTO) 0.7 10^3/uL (0.1-1.4); ABSOLUTE NEUT (AUTO) 11.2 10^3/uL (1.7-8.2); BASOPHILS % (AUTO) 0.8 % (0-2); EOSINOPHILS % (AUTO) 2.8 % (0-6); HEMATOCRIT 29.6 % (36.0-47.0); HEMOGLOBIN 9.8 g/dL (12.0-15.5); HGB HCT DIFFERENCE -0.2; LYMPHOCYTES % (AUTO) 11.6 % (13-45); MEAN CORPUSCULAR HEMOGLOBIN 25.9 pg (27.0-33.4); MEAN CORPUSCULAR HGB CONC 32.9 g/dL (32.0-36.0); MEAN CORPUSCULAR VOLUME 79 fl (80-97); RED BLOOD COUNT 3.77 10^6/uL (3.72-5.28); RED CELL DISTRIBUTION WIDTH 17.8 % (11.5-14.0); SEGMENTED NEUTROPHILS % (AUTO) 79.8 % (42-78)
[2016-06-30 07:39] LABS: ANION GAP 8 (5-19); BLOOD UREA NITROGEN 3 mg/dL (7-20); CALCIUM 8.7 mg/dL (8.4-10.2); CARBON DIOXIDE 26 mmol/L (22-30); CHLORIDE 103 mmol/L (98-107); GLUCOSE 86 mg/dL (75-110); POTASSIUM 3.8 mmol/L (3.6-5.0); SODIUM 137.2 mmol/L (137-145)
--- NOTE | 2016-06-30 07:58 | PDOC PROGRESS REPORT ---
Subjective Progress Note for:: 06/30/16 Subjective:: No acute events overnight, still with drainage from VILMA, yesterday surgery changed antibiotics, has not yet advance diet because of this. Physical Exam Vital Signs: Temp Pulse Resp BP Pulse Ox 98.6 F 98 20 130/75 H 97 06/30/16 04:17 06/30/16 04:17 06/30/16 07:00 06/30/16 04:17 06/30/16 07:00 Intake & Output 06/29/16 06/30/16 07/01/16 06:59 06:59 06:59 Intake Total 120 2000 Output Total 4110 3620 Balance -3990 -1620 General appearance: PRESENT: no acute distress, well-developed, well-nourished Head exam: PRESENT: atraumatic, normocephalic Eye exam: PRESENT: conjunctiva pink, EOMI, PERRLA. ABSENT: scleral icterus Ear exam: PRESENT: normal external ear exam Mouth exam: PRESENT: moist, tongue midline Neck exam: ABSENT: carotid bruit, JVD, lymphadenopathy, thyromegaly Respiratory exam: PRESENT: clear to auscultation colt. ABSENT: rales, rhonchi, wheezes Cardiovascular exam: PRESENT: RRR. ABSENT: diastolic murmur, rubs, systolic murmur Pulses: PRESENT: normal dorsalis pedis pul Vascular exam: PRESENT: normal capillary refill GI/Abdominal exam: PRESENT: normal bowel sounds, soft. ABSENT: distended, guarding, mass, organolmegaly, rebound, tenderness Rectal exam: PRESENT: deferred Extremities exam: PRESENT: full ROM. ABSENT: calf tenderness, clubbing, pedal edema Neurological exam: PRESENT: alert, awake, oriented to person, oriented to place , oriented to time, oriented to situation, CN II-XII grossly intact. ABSENT: motor sensory deficit Psychiatric exam: PRESENT: appropriate affect, normal mood. ABSENT: homicidal ideation, suicidal ideation Skin exam: PRESENT: dry, intact, warm. ABSENT: cyanosis, rash Results Laboratory Results: 06/30/16 06:21 06/30/16 06:21 06/30/16 06/30/16 06:21 06:21 WBC 14.0 H RBC 3.77 Hgb 9.8 L Hct 29.6 L MCV 79 L MCH 25.9 L MCHC 32.9 RDW 17.8 H Plt Count 567 H Seg Neutrophils % 79.8 H Lymphocytes % 11.6 L Monocytes % 5.0 Eosinophils % 2.8 Basophils % 0.8 Absolute Neutrophils 11.2 H Absolute Lymphocytes 1.6 Absolute Monocytes 0.7 Absolute Eosinophils 0.4 Absolute Basophils 0.1 Sodium 137.2 Potassium 3.8 Chloride 103 Carbon Dioxide 26 Anion Gap 8 BUN 3 L Creatinine 0.60 Est GFR ( Amer) > 60 Est GFR (Non-Af Amer) > 60 Glucose 86 Calcium 8.7 Impressions: Transvaginal US 06/25/16 09:46 IMPRESSION: 1. Status post hysterectomy and right oophorectomy. Incidental left ovarian cyst without suspicious features. Abdomen/Pelvis CT 06/25/16 11:38 IMPRESSION: 1. Pathology in the right lower quadrant appears to be predominantly related to the base of the cecum. Suspect contained perforation with abscess here. This could be related to right colonic diverticulitis or other inflammatory disease. No overt inflammation of the terminal ileum. The appendix looks fairly normal. Appendicitis with periappendiceal abscess is therefore felt to be unlikely. Malignancy is also in the differential, but felt to be less likely in a patient of this age without any reported risk factors for such. Assessment & Plan - Diagnosis (1) Colon cancer Qualifiers: Colon location: ascending Qualified Code(s): C18.2 - Malignant neoplasm of ascending colon Is this a current diagnosis for this admission?: YesPlan: As noted previously had a long discussion with family, once again discussed total care with patient, spent 45 minutes in discussion, we would like port placement when we feel she is no longer at infection risk, so probably should be done as an outpatient. We would then initiate FOLFOX chemotherapy, at this point it'll be likely 6-8 weeks post surgery. We will continue to monitor her while inpatient, we will also make arrangements see her outpatient once discharged. - Time Time Spent with patient: 35 or more minutes Critical Time spent with patient: 35 or more minutes - Inpatient Certification Based on my medical assessment, after consideration of the patient's comorbidities, presenting symptoms, or acuity I expect that the services needed warrant INPATIENT care.: Yes I certify that my determination is in accordance with my understanding of Medicare's requirements for reasonable and necessary INPATIENT services [42 CFR 412.3e].: Yes Medical Necessity: Need For IV Fluids, Need for IV Antibiotics, Risk of Complication if Not Cared For in Hospital
[2016-06-30] MEDS: ENOXAPARIN SODIUM INJ 40 MG/0.4 ML DISP.SYRIN SUBCUT SCH (10:30)
[2016-06-30] MEDS: POTASSI CL 20 MEQ/D5-1/2NS 1L 1,000 ML IV PRN (10:33)
[2016-06-30] MEDS: LISINOPRIL 10 MG TABLET PO SCH (10:35)
[2016-06-30] MEDS: HYDROCHLOROTHIAZIDE 12.5 MG CAPSULE PO SCH (10:36)
[2016-06-30] MEDS: ALBUTEROL SULFATE HFA (90 MCG/PUFF) 200 PUFF/8.5 GM MDI IH PRN (11:19)
--- NOTE | 2016-06-30 18:19 | PROGRESS NOTE E ---
Progress Note NAME: DON IKNG : 1980 AGE: 35Y DATE: 06/30/2016 ROOM: 211 She does not have any significant complaints; in fact, she is complaining of being hungry and we just increased her diet to soft diet but only took a few bites this afternoon. Her abdomen is soft. The VILMA drained about 220 mL. Her white count is trending down to 14,000 from 15.4 and her temperature is 99.1 but the heart rate is about 105 per minute. We will continue her IV fluids and IV antibiotics. We will repeat her CBC in the morning. DICTATING PHYSICIAN: MANJEET RIVAS M.D. [id number] PHY#: [id number] ID: [id number] JOB#: [id number] ACCT: [id number] cc: >
[2016-06-30] MEDS ORDERED: SIMETHICONE 80 MG TAB.CHEW PO PRN (22:44)
[2016-07-01] MEDS: METRONIDAZOLE 500 MG/NS RTU 100 ML IV SCH ×4 (02:03→18:09)
[2016-07-01] MEDS: AMPICILLIN SODIUM/SULBACTAM NA 3 GM in NORMAL SALINE 100 ML IV SCH ×4 (03:09→23:29)
[2016-07-01 06:24] LABS: ABSOLUTE BASOPHILS # (AUTO) 0.1 10^3/uL (0.0-0.2); ABSOLUTE EOSINOPHILS # (AUTO) 0.4 10^3/uL (0.0-0.6); ABSOLUTE MONOCYTES (AUTO) 0.9 10^3/uL (0.1-1.4); ABSOLUTE NEUT (AUTO) 14.4 10^3/uL (1.7-8.2); BASOPHILS % (AUTO) 0.9 % (0-2); EOSINOPHILS % (AUTO) 2.3 % (0-6); HEMATOCRIT 29.7 % (36.0-47.0); HEMOGLOBIN 9.6 g/dL (12.0-15.5); HGB HCT DIFFERENCE -0.9; MEAN CORPUSCULAR HEMOGLOBIN 25.6 pg (27.0-33.4); MEAN CORPUSCULAR HGB CONC 32.3 g/dL (32.0-36.0); MEAN CORPUSCULAR VOLUME 79 fl (80-97); MONOCYTES % (AUTO) 5.6 % (3-13); RED BLOOD COUNT 3.76 10^6/uL (3.72-5.28); RED CELL DISTRIBUTION WIDTH 17.5 % (11.5-14.0); SEGMENTED NEUTROPHILS % (AUTO) 85.2 % (42-78); WHITE BLOOD COUNT 16.9 10^3/uL (4.0-10.5)
[2016-07-01] MEDS: ENOXAPARIN SODIUM INJ 40 MG/0.4 ML DISP.SYRIN SUBCUT SCH (08:55)
[2016-07-01] MEDS: LISINOPRIL 10 MG TABLET PO SCH (09:00)
[2016-07-01] MEDS: HYDROCHLOROTHIAZIDE 12.5 MG CAPSULE PO SCH (09:00)
--- NOTE | 2016-07-01 11:03 | PDOC PROGRESS REPORT ---
Subjective Progress Note for:: 07/01/16 Subjective:: VILMA drain was removed, patient is tolerating solid foods but not yet had a solid bowel movement, is passing gas though. Plan for discontinuation of PRODUCTION OFFICER pump and initiation of oral pain medication. Physical Exam Vital Signs: Temp Pulse Resp BP Pulse Ox 98.3 F 94 20 119/68 97 07/01/16 07:50 07/01/16 07:50 07/01/16 10:00 07/01/16 07:50 07/01/16 10:00 Intake & Output 06/30/16 07/01/16 07/02/16 06:59 06:59 06:59 Intake Total 1999 540 Output Total 3620 1110 Balance -1620 -570 General appearance: PRESENT: no acute distress, well-developed, well-nourished Head exam: PRESENT: atraumatic, normocephalic Eye exam: PRESENT: conjunctiva pink, EOMI, PERRLA. ABSENT: scleral icterus Ear exam: PRESENT: normal external ear exam Mouth exam: PRESENT: moist, tongue midline Neck exam: ABSENT: carotid bruit, JVD, lymphadenopathy, thyromegaly Respiratory exam: PRESENT: clear to auscultation colt. ABSENT: rales, rhonchi, wheezes Cardiovascular exam: PRESENT: RRR. ABSENT: diastolic murmur, rubs, systolic murmur Pulses: PRESENT: normal dorsalis pedis pul Vascular exam: PRESENT: normal capillary refill GI/Abdominal exam: PRESENT: normal bowel sounds, soft. ABSENT: distended, guarding, mass, organolmegaly, rebound, tenderness Rectal exam: PRESENT: deferred Extremities exam: PRESENT: full ROM. ABSENT: calf tenderness, clubbing, pedal edema Neurological exam: PRESENT: alert, awake, oriented to person, oriented to place , oriented to time, oriented to situation, CN II-XII grossly intact. ABSENT: motor sensory deficit Psychiatric exam: PRESENT: appropriate affect, normal mood. ABSENT: homicidal ideation, suicidal ideation Skin exam: PRESENT: dry, intact, warm. ABSENT: cyanosis, rash Results Laboratory Results: 07/01/16 05:52 06/30/16 06:21 07/01/16 05:52 WBC 16.9 H RBC 3.76 Hgb 9.6 L Hct 29.7 L MCV 79 L MCH 25.6 L MCHC 32.3 RDW 17.5 H Plt Count 569 H Seg Neutrophils % 85.2 H Lymphocytes % 6.0 L Monocytes % 5.6 Eosinophils % 2.3 Basophils % 0.9 Absolute Neutrophils 14.4 H Absolute Lymphocytes 1.0 Absolute Monocytes 0.9 Absolute Eosinophils 0.4 Absolute Basophils 0.1 Impressions: Transvaginal US 06/25/16 09:46 IMPRESSION: 1. Status post hysterectomy and right oophorectomy. Incidental left ovarian cyst without suspicious features. Abdomen/Pelvis CT 06/25/16 11:38 IMPRESSION: 1. Pathology in the right lower quadrant appears to be predominantly related to the base of the cecum. Suspect contained perforation with abscess here. This could be related to right colonic diverticulitis or other inflammatory disease. No overt inflammation of the terminal ileum. The appendix looks fairly normal. Appendicitis with periappendiceal abscess is therefore felt to be unlikely. Malignancy is also in the differential, but felt to be less likely in a patient of this age without any reported risk factors for such. Assessment & Plan - Diagnosis (1) Colon cancer Qualifiers: Colon location: ascending Qualified Code(s): C18.2 - Malignant neoplasm of ascending colon Is this a current diagnosis for this admission?: YesPlan: Stage III colon cancer, as noted previously, we'll plan for outpatient follow-up , will need port placement and adjuvant chemotherapy. - Time Time Spent with patient: 15-24 minutes Critical Time spent with patient: 15-24 minutes Within: within 72 hours
--- NOTE | 2016-07-01 11:39 | PDOC PROGRESS REPORT ---
Subjective Progress Note for:: 07/01/16 Subjective:: The patient is sitting in the chair, having had breakfast. She is voiding. She is having some pain. sHe is still on a [employer]ERSON [employer] pain pump Physical Exam Vital Signs: Temp Pulse Resp BP Pulse Ox 98.3 F 94 20 119/68 97 07/01/16 07:50 07/01/16 07:50 07/01/16 10:00 07/01/16 07:50 07/01/16 10:00 Intake & Output 06/30/16 07/01/16 07/02/16 06:59 06:59 06:59 Intake Total 1999 540 Output Total 3620 1110 Balance -1620 -570 General appearance: PRESENT: no acute distress GI/Abdominal exam: PRESENT: other - Incision looks great at the umbilicus. Drain removed. Results Laboratory Results: 07/01/16 05:52 06/30/16 06:21 07/01/16 05:52 WBC 16.9 H RBC 3.76 Hgb 9.6 L Hct 29.7 L MCV 79 L MCH 25.6 L MCHC 32.3 RDW 17.5 H Plt Count 569 H Seg Neutrophils % 85.2 H Lymphocytes % 6.0 L Monocytes % 5.6 Eosinophils % 2.3 Basophils % 0.9 Absolute Neutrophils 14.4 H Absolute Lymphocytes 1.0 Absolute Monocytes 0.9 Absolute Eosinophils 0.4 Absolute Basophils 0.1 Impressions: Transvaginal US 06/25/16 09:46 IMPRESSION: 1. Status post hysterectomy and right oophorectomy. Incidental left ovarian cyst without suspicious features. Abdomen/Pelvis CT 06/25/16 11:38 IMPRESSION: 1. Pathology in the right lower quadrant appears to be predominantly related to the base of the cecum. Suspect contained perforation with abscess here. This could be related to right colonic diverticulitis or other inflammatory disease. No overt inflammation of the terminal ileum. The appendix looks fairly normal. Appendicitis with periappendiceal abscess is therefore felt to be unlikely. Malignancy is also in the differential, but felt to be less likely in a patient of this age without any reported risk factors for such. Assessment & Plan - Diagnosis (1) Mass of cecum Is this a current diagnosis for this admission?: Yes (2) Colon cancer Qualifiers: Colon location: ascending Qualified Code(s): C18.2 - Malignant neoplasm of ascending colon Is this a current diagnosis for this admission?: YesPlan: Patient now 1 week status post right hemicolectomy for localized perforation of cecal carcinoma, T4 N1 B N0, doing reasonably well with return of bowel function , drain out. 2. Residual concern is sustaining leukocytosis. This may be pulmonary in nature. Patient remains on Flagyl and Unasyn. We will stop up pulmonary toilet ensure she is walking in the halls, coughing and deep breathing. 3. Will her by mouth pain medication, and wean her off SALESPERSON MEATS pump.
[2016-07-01] MEDS: OXYCODONE-ACETAMINOPHEN 5-325 MG TABLET PO PRN ×4 (14:10→22:05)
[2016-07-01] MEDS ORDERED: SIMETHICONE 80 MG TAB.CHEW PO PRN (16:25)
[2016-07-01] MEDS ORDERED: AMPICILLIN SOD/SULBACTAM 3 GM VIAL ONE (18:38)
[2016-07-01] MEDS ORDERED: BISACODYL 10 MG SUPP.RECT PR ONE (20:00)
[2016-07-02] MEDS: METRONIDAZOLE 500 MG/NS RTU 100 ML IV SCH ×2 (00:34→05:30)
[2016-07-02] MEDS: OXYCODONE-ACETAMINOPHEN 5-325 MG TABLET PO PRN ×2 (05:07→11:00)
[2016-07-02] MEDS: AMPICILLIN SODIUM/SULBACTAM NA 3 GM in NORMAL SALINE 100 ML IV SCH (06:32)
[2016-07-02 06:35] LABS: ABSOLUTE BASOPHILS # (AUTO) 0.1 10^3/uL (0.0-0.2); ABSOLUTE EOSINOPHILS # (AUTO) 0.4 10^3/uL (0.0-0.6); ABSOLUTE LYMPHOCYTES (AUTO) 1.2 10^3/uL (0.5-4.7); ABSOLUTE MONOCYTES (AUTO) 0.9 10^3/uL (0.1-1.4); ABSOLUTE NEUT (AUTO) 16.9 10^3/uL (1.7-8.2); BASOPHILS % (AUTO) 0.4 % (0-2); HEMATOCRIT 29.7 % (36.0-47.0); HEMOGLOBIN 9.6 g/dL (12.0-15.5); HGB HCT DIFFERENCE -0.9; MEAN CORPUSCULAR HEMOGLOBIN 25.7 pg (27.0-33.4); MEAN CORPUSCULAR HGB CONC 32.3 g/dL (32.0-36.0); MEAN CORPUSCULAR VOLUME 80 fl (80-97); MONOCYTES % (AUTO) 4.5 % (3-13); RED BLOOD COUNT 3.73 10^6/uL (3.72-5.28); RED CELL DISTRIBUTION WIDTH 17.7 % (11.5-14.0); SEGMENTED NEUTROPHILS % (AUTO) 87.1 % (42-78); WHITE BLOOD COUNT 19.4 10^3/uL (4.0-10.5)
[2016-07-02] MEDS ORDERED: DOCUSATE SODIUM 100 MG CAPSULE PO SCH (10:00)
[2016-07-02] MEDS: LISINOPRIL 10 MG TABLET PO SCH (11:01)
[2016-07-02 11:40] VITALS: BP 121/67
--- NOTE | 2016-07-02 11:43 | DISCHARGE SUMMARY E ---
Discharge Summary NAME: DON KING : 1980 AGE: 35Y ADMITTED: 06/25/2016 DISCHARGED: 07/02/2016 REASON FOR ADMISSION: Acute abdominal pain. SUMMARY OF HOSPITALIZATION: The patient is a 35-year-old -[place] female who presents to the emergency department complaining of abdominal pain in right lower quadrant. She was evaluated in the emergency department where she was found by CT scan to have findings consistent with an inflammatory mass involving the cecum. Surgery was consulted, she was admitted to the surgicalist service, kept n.p.o. on IV fluid and later that afternoon taken to the operating room by Dr. Bush. The patient was found to have a mass involving her cecum. She underwent extended right hemicolectomy. 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 The patient had a drain placed intraoperatively which put out serosanguineous. She had a nasogastric tube which was removed on the first postoperative day as was her Flores catheter. She was maintained on intravenous antibiotics for approximately 1 week. She was seen in consultation by Dr. Gilmore of [facility] group who plans adjuvant chemotherapy on an outpatient basis. Patient's incision is healed without infection. 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 By the seventh postoperative day, she was ready for discharge home. 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 Bush. DISPOSITION: Patient will be discharged home in care of family. Follow up with Dr. Vergara at [facility] in approximately 1 week. She will also followup with [facility] this coming week. She will shower and she will take pain medication and Colace as instructed. DICTATING PHYSICIAN: HAL VERGARA M.D. [id number] PHY#: [id number] ID: [id number] JOB#: [id number] ACCT: [id number] cc:Quang MARIA TIMOTHY M.D. >
== END 2016-07-02 12:10 | disposition home or self-care (01) | DRG 330 ==
LOC: ER 08:02 → EH 13:54 → 2N 15:42
PROVIDERS: ATTEND Surgery
PROC: 0D9H40Z Drainage of Cecum with Drainage Device, Percutaneous Endoscopic Approach (ICD-10-PCS; 2016-06-25)
PROC: 0DTF4ZZ Resection of Right Large Intestine, Percutaneous Endoscopic Approach (ICD-10-PCS; principal; 2016-06-25 17:00)
DX: C18.0 Malignant neoplasm of cecum (principal); C77.2 Secondary and unspecified malignant neoplasm of intra-abdominal lymph nodes; I10 Essential (primary) hypertension; K21.9 Gastro-esophageal reflux disease without esophagitis; F31.9 Bipolar disorder, unspecified; Z79.899 Other long term (current) drug therapy; Z90.49 Acquired absence of other specified parts of digestive tract; Z90.710 Acquired absence of both cervix and uterus; Z88.8 Allergy status to other drugs, medicaments and biological substances; F17.210 Nicotine dependence, cigarettes, uncomplicated; J45.909 Unspecified asthma, uncomplicated; D64.9 Anemia, unspecified; R00.0 Tachycardia, unspecified
CPT/HCPCS: 36415; 74177; 76830; 790; 80048; 80053; 81001; 81025; 83735; 84100; 85025; 88309; 94799; 99285; C1765; J0131; J0295; J0330; J1170; J1650; J1885; J1956; J2250; J2270; J2405; J2543; J2704; J3010; J3480; J3490; J7030

== ENCOUNTER 2016-07-09 11:16 | Inpatient (IN) | payer OTHER ==
--- NOTE | 2016-07-09 11:22 | ER Document Report ---
ED Medical Screen (RME) - General Mode of Arrival: Ambulatory Information source: Patient TRAVEL OUTSIDE OF THE [place] IN LAST 30 DAYS: No <SONAL CABRERA - Last Filed: 07/09/16 11:19> <MARGAUX SAAVEDRA - Last Filed: 07/17/16 12:07> - General Stated Complaint: POST OP PROBLEMS Notes: Pt presents to the ED for post op surgical wound concern. Reports surgery June 25 for colon resection, appy, stage III colon cancer. Reports noted discharge on blanket upon waking this am. She contacted the surgeon and was told to come to the ED. Denies f/n/v/d. Denies increased pain, denies erythema/ warmth. Reports discharge only. I have greeted and performed a rapid initial assessment of this patient. A comprehensive ED assessment and evaluation of the patient, analysis of test results and completion of the medical decision making process will be conducted by additional ED providers. (SONAL CABRERA) - Related Data Allergies/Adverse Reactions: risperidone [From Risperdal] Allergy (Unknown, Verified 07/09/16 11:21) tramadol [Tramadol] Adverse Reaction (Intermediate, Verified 07/09/16 11:21) Nausea ibuprofen [Ibuprofen] Adverse Reaction (Mild, Verified 07/09/16 11:21) Nausea Past Medical History - Past Medical History Cardiac Medical History: Reports: Hx Hypertension Denies: Hx Coronary Artery Disease, Hx Heart Attack Pulmonary Medical History: Reports: Hx Asthma, Hx Bronchitis Denies: Hx COPD, Hx Pneumonia, Hx Tuberculosis Neurological Medical History: Denies: Hx Cerebrovascular Accident, Hx Seizures Renal/ Medical History: Reports: Hx Ovarian Cysts. Denies: Hx Peritoneal Dialysis GI Medical History: Reports: Hx Gastroesophageal Reflux Disease, Hx Ulcer Musculoskeltal Medical History: Denies Hx Arthritis Psychiatric Medical History: Reports: Hx Bipolar Disorder, Hx Depression Traumatic Medical History: Reports: Hx Fractures - RIGHT FEMUR Past Surgical History: Reports: Hx Cholecystectomy, Hx Hysterectomy - BRI, bilateral ovaries are still in, Hx Orthopedic Surgery - Right Femur fx with heaven placement - Immunizations Hx Diphtheria, Pertussis, Tetanus Vaccination: No <SONAL CABRERA - Last Filed: 07/09/16 11:19> Course - Laboratory Result Diagrams: 07/11/16 04:33 07/11/16 04:33 <MARGAUX SAAVEDRA - Last Filed: 07/17/16 12:07> - Vital Signs Vital signs: Temp Pulse Resp BP Pulse Ox 98.3 F 107 H 16 117/68 97 07/11/16 18:05 07/11/16 18:05 07/11/16 18:05 07/11/16 18:05 07/11/16 18:05 - Laboratory Laboratory results interpreted by me: 07/09/16 07/09/16 13:05 13:05 WBC 16.3 H RBC 3.54 L Hgb 9.4 L Hct 28.1 L MCV 79 L MCH 26.4 L RDW 19.3 H Plt Count 837 H Seg Neutrophils % 85.2 H Lymphocytes % 8.2 L Absolute Neutrophils 13.9 H Alkaline Phosphatase 134 H Albumin 3.1 L Doctor's Discharge <SONAL CABRERA - Last Filed: 07/09/16 11:19> <MARGAUX SAAVEDRA - Last Filed: 07/17/16 12:07> - Discharge Clinical Impression: Encounter for examination following surgery Colon cancer Qualifiers: Colon location: ascending Qualified Code(s): C18.2 - Malignant neoplasm of ascending colon Disposition: HOME, SELF-CARE
--- NOTE | 2016-07-09 11:46 | ER Document Report ---
ED General - General Chief Complaint: Post Surgical Bleeding Stated Complaint: POST OP PROBLEMS Mode of Arrival: Ambulatory TRAVEL OUTSIDE OF THE [place] IN LAST 30 DAYS: No - Related Data Allergies/Adverse Reactions: risperidone [From Risperdal] Allergy (Unknown, Verified 07/09/16 11:21) tramadol [Tramadol] Adverse Reaction (Intermediate, Verified 07/09/16 11:21) Nausea ibuprofen [Ibuprofen] Adverse Reaction (Mild, Verified 07/09/16 11:21) Nausea Past Medical History - General Information source: Patient - Social History Smoking Status: Never Smoker Chew tobacco use (# tins/day): No Frequency of alcohol use: None Drug Abuse: None Family History: DM, Hypertension, Other - anemia, cancer as in history of present illness Patient has suicidal ideation: No Patient has homicidal ideation: No - Past Medical History Cardiac Medical History: Reports: Hx Hypertension Denies: Hx Coronary Artery Disease, Hx Heart Attack Pulmonary Medical History: Reports: Hx Asthma, Hx Bronchitis Denies: Hx COPD, Hx Pneumonia, Hx Tuberculosis Neurological Medical History: Denies: Hx Cerebrovascular Accident, Hx Seizures Renal/ Medical History: Reports: Hx Ovarian Cysts. Denies: Hx Peritoneal Dialysis GI Medical History: Reports: Hx Gastroesophageal Reflux Disease, Hx Ulcer Musculoskeltal Medical History: Denies Hx Arthritis Psychiatric Medical History: Reports: Hx Bipolar Disorder, Hx Depression Traumatic Medical History: Reports: Hx Fractures - RIGHT FEMUR Past Surgical History: Reports: Hx Cholecystectomy, Hx Hysterectomy - BRI, bilateral ovaries are still in, Hx Orthopedic Surgery - Right Femur fx with heaven placement - Immunizations Hx Diphtheria, Pertussis, Tetanus Vaccination: No
[2016-07-09] MEDS ORDERED: NORMAL SALINE 1000 ML 1,000 ML IV ONE (12:30)
--- NOTE | 2016-07-09 12:36 | ER Document Report ---
ED General - General Chief Complaint: Post Surgical Bleeding Stated Complaint: POST OP PROBLEMS Mode of Arrival: Ambulatory Information source: Patient Notes: Patient presents after recently undergoing a right hemicolectomy after having a bowel perforation and being diagnosed with cecal carcinoma. Patient was just discharged from this hospital on 07/02/2016. Patient reports that her surgical incision has been hard to the touch and then today she noticed purulent drainage from the wound. Patient denies any fever or any significant abdominal pain, any nausea, vomiting, or diarrhea. Patient denies any urinary symptoms. Patient denies any current antibiotic treatment. TRAVEL OUTSIDE OF THE [place] IN LAST 30 DAYS: No - HPI Onset: This morning Onset/Duration: Gradual Quality of pain: No pain Pain Level: Denies Associated symptoms: Other - Drainage from abdominal wound. denies: Nonproductive cough, Productive cough, Diarrhea, Fever, Nausea, Vomiting Exacerbated by: Denies Relieved by: Denies Similar symptoms previously: No Recently seen / treated by doctor: Yes - Related Data Allergies/Adverse Reactions: risperidone [From Risperdal] Allergy (Unknown, Verified 07/09/16 11:21) tramadol [Tramadol] Adverse Reaction (Intermediate, Verified 07/09/16 11:21) Nausea ibuprofen [Ibuprofen] Adverse Reaction (Mild, Verified 07/09/16 11:21) Nausea Home Medications: Current Home Medications Lisinopril/Hydrochlorothiazide [Zestoretic 20-12.5 mg Tablet] 1 tab PO DAILY [History] Methocarbamol [Robaxin 750 mg Tablet] 750 mg PO TIDP PRN 07/09/16 [History] Oxycodone HCl 20 mg PO TID 07/09/16 [History] Past Medical History - General Information source: Patient - Social History Smoking Status: Never Smoker Chew tobacco use (# tins/day): No Frequency of alcohol use: None Drug Abuse: None Occupation: none Lives with: Family Family History: DM, Hypertension, Other - anemia, cancer as in history of present illness Patient has suicidal ideation: No Patient has homicidal ideation: No - Past Medical History Cardiac Medical History: Reports: Hx Hypertension Denies: Hx Coronary Artery Disease, Hx Heart Attack Pulmonary Medical History: Reports: Hx Asthma, Hx Bronchitis Denies: Hx COPD, Hx Pneumonia, Hx Tuberculosis Neurological Medical History: Denies: Hx Cerebrovascular Accident, Hx Seizures Renal/ Medical History: Reports: Hx Ovarian Cysts. Denies: Hx Peritoneal Dialysis GI Medical History: Reports: Hx Gastroesophageal Reflux Disease, Hx Ulcer Musculoskeltal Medical History: Denies Hx Arthritis Psychiatric Medical History: Reports: Hx Bipolar Disorder, Hx Depression Traumatic Medical History: Reports: Hx Fractures - RIGHT FEMUR Past Surgical History: Reports: Hx Abdominal Surgery - 1/3 colon removed 06/25/16 , Hx Cholecystectomy, Hx Hysterectomy, Hx Orthopedic Surgery - Right Femur fx with heaven placement - Immunizations Hx Diphtheria, Pertussis, Tetanus Vaccination: No Review of Systems - Review of Systems Constitutional: Recent illness - Recently discharged after being diagnosed with cecal carcinoma and having a right hemicolectomy. denies: Fever EENT: No symptoms reported Cardiovascular: No symptoms reported. denies: Chest pain, Dyspnea Respiratory: No symptoms reported. denies: Cough, Short of breath Gastrointestinal: No symptoms reported. denies: Abdominal pain, Diarrhea, Nausea, Vomiting Genitourinary: No symptoms reported Female Genitourinary: No symptoms reported Musculoskeletal: No symptoms reported. denies: Back pain Skin: Other - Drainage from her abdominal incision Hematologic/Lymphatic: No symptoms reported Neurological/Psychological: No symptoms reported Physical Exam - Vital signs Vitals: Resp Pulse Ox 18 97 07/09/16 12:44 07/09/16 12:44 - General General appearance: Appears well, Alert In distress: None - HEENT Head: Normocephalic, Atraumatic Eyes: Normal Conjunctiva: Normal Nasal: Normal Mouth/Lips: Normal Mucous membranes: Normal Pharynx: Normal Neck: Normal, Supple. No: Lymphadenopathy - Respiratory Respiratory status: No respiratory distress Chest status: Nontender Breath sounds: Normal. No: Rales, Rhonchi, Stridor, Wheezing Chest palpation: Normal - Cardiovascular Rhythm: Tachycardia Heart sounds: S1 appreciated, S2 appreciated Murmur: No - Abdominal Inspection: Other - Purulent drainage from umbilical incision, mild erythema periumbilical area Distension: No distension Bowel sounds: Normal Tenderness: Nontender Organomegaly: No organomegaly - Back Back: Normal, Nontender. No: CVA tenderness - Extremities General upper extremity: Normal inspection, Normal strength General lower extremity: Normal inspection, Normal strength - Neurological Neuro grossly intact: Yes Cognition: Normal [place] Coma Scale Eye Opening: Spontaneous [place] Coma Scale Verbal: Oriented [place] Coma Scale Motor: Obeys Commands [place] Coma Scale Total: 15 - Psychological Associated symptoms: Normal affect, Normal mood - Skin Skin Temperature: Warm Skin Moisture: Dry Skin Color: Erythema - Periumbilical area Course - Re-evaluation Re-evalutation: 07/09/16 12:36 Consulted with who agrees to come and evaluate patient. 07/09/16 12:[address] Gonzalez regarding patient presentation and management. Recommends waiting for surgical consultation before starting any antibiotics this time. 07/09/16 13:41 Patient is refusing an IV to be placed unless she has to be admitted. 07/09/16 14:34 Patient complains of pain in her IV access site was placed to left forearm. Surgeon states that if patient is having tenderness may be infiltrated. Surgeon at bedside for abdominal wound incision and drainage. feels that he will be able to manage patient's post operative wound infection on an outpatient basis, although states that if patient remains tachycardic she may need to be admitted to the medical specialty services. Consulted with Dr. Gonzalez regarding patient status. Reviewed patient's diagnostic test results. Recommends oral hydration after surgeon finishes up with his procedure. Advises monitoring patient, with attempts to orally hydrate patient. 07/09/16 15:00 Dr. Alejandre finished incision and drainage procedure at bedside. States that he will admit patient to his services to a telemetry floor. 07/09/16 15:05 Patient updated regarding plan of care. Patient denies needing any pain medication at this time. Patient continues tachycardic on signaler 120's , blood pressure stable. RN at bedside attempting peripheral IV site. - Vital Signs Vital signs: Temp Pulse Resp BP Pulse Ox 98.2 F 121 H 22 H 119/66 96 07/09/16 17:13 07/09/16 17:13 07/09/16 17:13 07/09/16 17:13 07/09/16 17:13 - Laboratory Result Diagrams: 07/09/16 13:05 07/09/16 13:05 Laboratory results interpreted by me: 07/09/16 07/09/16 13:05 13:05 WBC 16.3 H RBC 3.54 L Hgb 9.4 L Hct 28.1 L MCV 79 L MCH 26.4 L RDW 19.3 H Plt Count 837 H Seg Neutrophils % 85.2 H Lymphocytes % 8.2 L Absolute Neutrophils 13.9 H Alkaline Phosphatase 134 H Albumin 3.1 L Labs- Entire Visit 07/09/16 07/09/16 07/09/16 13:05 13:05 13:05 WBC 16.3 H RBC 3.54 L Hgb 9.4 L Hct 28.1 L MCV 79 L MCH 26.4 L MCHC 33.3 RDW 19.3 H Plt Count 837 H Seg Neutrophils % 85.2 H Lymphocytes % 8.2 L Monocytes % 4.5 Eosinophils % 1.0 Basophils % 1.1 Absolute Neutrophils 13.9 H Absolute Lymphocytes 1.3 Absolute Monocytes 0.7 Absolute Eosinophils 0.2 Absolute Basophils 0.2 PT 12.8 INR 0.94 VBG pH VBG pCO2 VBG HCO3 VBG Base Excess Sodium 140.1 Potassium 3.6 Chloride 100 Carbon Dioxide 28 Anion Gap 12 BUN 9 Creatinine 0.59 Est GFR ( Amer) > 60 Est GFR (Non-Af Amer) > 60 Glucose 88 Lactic Acid Calcium 9.2 Total Bilirubin 0.4 Direct Bilirubin 0.3 Indirect Bilirubin Not Reportable Neonat Total Bilirubin Not Reportable AST 18 ALT 26 Alkaline Phosphatase 134 H Troponin I Total Protein 6.7 Albumin 3.1 L 07/09/16 07/09/16 07/09/16 13:05 13:05 13:50 WBC RBC Hgb Hct MCV MCH MCHC RDW Plt Count Seg Neutrophils % Lymphocytes % Monocytes % Eosinophils % Basophils % Absolute Neutrophils Absolute Lymphocytes Absolute Monocytes Absolute Eosinophils Absolute Basophils PT INR VBG pH 7.42 VBG pCO2 44.9 VBG HCO3 28.5 VBG Base Excess 3.3 Sodium Potassium Chloride Carbon Dioxide Anion Gap BUN Creatinine Est GFR ( Amer) Est GFR (Non-Af Amer) Glucose Lactic Acid 1.0 Calcium Total Bilirubin Direct Bilirubin Indirect Bilirubin Neonat Total Bilirubin AST ALT Alkaline Phosphatase Troponin I < 0.012 Total Protein Albumin Discharge - Discharge Clinical Impression: Colon cancer Qualifiers: Colon location: ascending Qualified Code(s): C18.2 - Malignant neoplasm of ascending colon Admitting Provider: Surgicalist Unit Admitted: Telemetry
[2016-07-09 13:23] LABS: ABSOLUTE BASOPHILS # (AUTO) 0.2 10^3/uL (0.0-0.2); ABSOLUTE EOSINOPHILS # (AUTO) 0.2 10^3/uL (0.0-0.6); ABSOLUTE LYMPHOCYTES (AUTO) 1.3 10^3/uL (0.5-4.7); ABSOLUTE MONOCYTES (AUTO) 0.7 10^3/uL (0.1-1.4); ABSOLUTE NEUT (AUTO) 13.9 10^3/uL (1.7-8.2); BASOPHILS % (AUTO) 1.1 % (0-2); HEMATOCRIT 28.1 % (36.0-47.0); HEMOGLOBIN 9.4 g/dL (12.0-15.5); HGB HCT DIFFERENCE 0.1; LYMPHOCYTES % (AUTO) 8.2 % (13-45); MEAN CORPUSCULAR HEMOGLOBIN 26.4 pg (27.0-33.4); MEAN CORPUSCULAR HGB CONC 33.3 g/dL (32.0-36.0); MEAN CORPUSCULAR VOLUME 79 fl (80-97); MONOCYTES % (AUTO) 4.5 % (3-13); RED BLOOD COUNT 3.54 10^6/uL (3.72-5.28); RED CELL DISTRIBUTION WIDTH 19.3 % (11.5-14.0); SEGMENTED NEUTROPHILS % (AUTO) 85.2 % (42-78); VENOUS BLOOD BASE EXCESS 3.3 mmol/L; VENOUS BLOOD HCO3 28.5 mmol/L (20-32); VENOUS BLOOD PCO2 44.9 mmHg (35-63); VENOUS BLOOD PH 7.42 (7.30-7.42); WHITE BLOOD COUNT 16.3 10^3/uL (4.0-10.5)
[2016-07-09 13:30] LABS: PROTHROMBIN TIME 12.8 SEC (11.4-15.4)
[2016-07-09 13:39] LABS: ALANINE AMINOTRANSFERASE 26 U/L (9-52); ALBUMIN 3.1 g/dL (3.5-5.0); ALKALINE PHOSPHATASE 134 U/L (38-126); ANION GAP 12 (5-19); ASPARTATE AMINO TRANSFERASE 18 U/L (14-36); BILIRUBIN,DIRECT 0.3 mg/dL (0.0-0.4); BILIRUBIN,TOTAL 0.4 mg/dL (0.2-1.3); BLOOD UREA NITROGEN 9 mg/dL (7-20); CALCIUM 9.2 mg/dL (8.4-10.2); CARBON DIOXIDE 28 mmol/L (22-30); CHLORIDE 100 mmol/L (98-107); CREATININE RESULT 0.59 mg/dL (0.52-1.25); GLUCOSE 88 mg/dL (75-110); POTASSIUM 3.6 mmol/L (3.6-5.0); SODIUM 140.1 mmol/L (137-145); TOTAL PROTEIN 6.7 g/dL (6.3-8.2)
[2016-07-09] MEDS ORDERED: LIDOCAINE 1% INJ-PF (10 MG/ML) 30 ML SDV INFIL ONE (14:25)
[2016-07-09] MEDS ORDERED: PIPERACILLIN/TAZOBACTAM 3.375 GM VIAL IV ONE ×3 (14:26→21:42)
[2016-07-09] MEDS ORDERED: LIDOCAINE 1%/EPINEPHRINE INJ 20 ML VIAL INJ ONE (14:28)
[2016-07-09] MEDS ORDERED: ONDANSETRON HCL INJ/PF 4 MG/2 ML SDV IV PRN (15:38)
[2016-07-09] MEDS ORDERED: ACETAMINOPHEN 325 MG TABLET PO PRN (15:38)
--- NOTE | 2016-07-09 15:39 | HISTORY AND PHYSICAL E ---
History and Physical NAME: DON KING : 1980 AGE: 35Y ADMITTED: 07/09/2016 ROOM: CHIEF COMPLAINT: Drainage of abdominal wound. HISTORY: This is a 35-year-old female, about 1 week postop following an ileocecectomy for perforated right colon cancer at the level of the cecum. The procedure was done using minimally invasive technique and the patient presents to the hospital complaining of drainage and discomfort in the midline incision at the level of the umbilicus. The drainage started about yesterday evening. She reports chills, but no fever. No change in bowel habits. She denies abdominal pain,nausea, and no vomiting. PAST MEDICAL HISTORY: Significant for: 1. Laparoscopic cholecystectomy. 2. Ileocecectomy. 3. Partial hysterectomy. 4. Hypertension. MEDICATIONS: 1. She takes Lisinopril 12.5 mg with hydrochlorothiazide 25 mg p.o. one daily. 2. Percocet 1 p.o. 3 times a day. ALLERGIES: None. SOCIAL HISTORY: She admits to the use of alcohol occasionally. Denies abusing tobacco and drugs. FAMILY HISTORY: Family history significant for diabetes and dementia on her mother's side. REVIEW OF SYSTEMS: Twelve-point review of systems is significant for colon cancer, hypertension, and uterine fibroids. PHYSICAL EXAMINATION: GENERAL: The patient is alert and oriented x3, in moderate distress because of the pain. VITAL SIGNS: Her vital signs are stable except elevated heart rate about 125. HEENT: II-XII cranial nerves are normal. NECK: Supple. LUNGS: Clear to auscultation bilaterally. CHEST: Symmetric bilaterally. HEART: Regular rhythm and rate. ABDOMEN: Obese. Nondistended. Tender in the midline, just at the level of the umbilicus where surgical scar is open with drainage and purulent material and some cellulitis. No peritoneal signs were identified. EXTREMITIES: Upper extremities equal and symmetric bilaterally without deficits. NEUROLOGIC SYSTEM: Equal and symmetric bilaterally without deficits. SKIN: Warm, dry, and intact without lesions except for the cellulitis identified in the mid abdominal area. ASSESSMENT: 1. Status post ileocecectomy for perforated right colon cancer at the level of the cecum about a week ago. 2. Drainage of foul-smelling material from the midline incision as per surgical incision abscess. 3. Hypertension. 4. Stage III colon cancer. PLAN: 1. Incision and drainage of the abscess at the bedside under local anesthesia. 2. Patient to be admitted for IV antibiotics (Zosyn 3.375 grams IV piggyback q. 6). 3. Will tailor the antibiotic therapy according to the culture obtained. 4. Patient to be admitted. 5. IV fluids 6. The patient will be given a regular diet. DICTATING PHYSICIAN: BERTHA CASAS M.D. [id number] PHY#: [id number] ID: [id number] JOB#: [id number] ACCT: [id number] cc: > MTDD
[2016-07-09] MEDS: NORMAL SALINE 1000 ML 1,000 ML IV PRN (16:32)
[2016-07-09] MEDS: OXYCODONE-ACETAMINOPHEN 5-325 MG TABLET PO PRN ×2 (16:32→22:49)
[2016-07-09] MEDS ORDERED: ENOXAPARIN SODIUM INJ 40 MG/0.4 ML DISP.SYRIN SUBCUT ONE (17:00)
[2016-07-09 18:59] LABS: APPEARANCE,URINE SLIGHTLY-CLOUDY; BILIRUBIN,URINE NEGATIVE (NEGATIVE); GLUCOSE, URINE NEGATIVE (NEGATIVE); KETONES,URINE NEGATIVE (NEGATIVE); LEUKOCYTE ESTERASE,URINE TRACE (NEGATIVE); NITRITE,URINE NEGATIVE (NEGATIVE); PROTEIN,URINE NEGATIVE (NEGATIVE); UROBILINOGEN,URINE NEGATIVE mg/dL (<2.0)
--- NOTE | 2016-07-09 20:01 | EKG REPORT ---
SEVERITY:- BORDERLINE ECG - SINUS TACHYCARDIA BORDERLINE T ABNORMALITIES, INFERIOR LEADS : Confirmed by: Girish Costa MD 09-Jul-2016 19:59:15
--- NOTE | 2016-07-09 20:01 | EKG REPORT ---
SEVERITY:- BORDERLINE ECG - SINUS TACHYCARDIA BORDERLINE T ABNORMALITIES, INFERIOR LEADS : Confirmed by: Girish Costa MD 09-Jul-2016 19:59:24
[2016-07-09] MEDS: FAMOTIDINE 20 MG TABLET PO SCH (22:49)
[2016-07-09] MEDS: PIPERACILLIN SODIUM/TAZOBACTAM 3.375 GM in NORMAL SALINE 100 ML IV SCH (22:53)
[2016-07-10] MEDS: NORMAL SALINE 1000 ML 1,000 ML IV PRN (02:27)
[2016-07-10] MEDS: PIPERACILLIN SODIUM/TAZOBACTAM 3.375 GM in NORMAL SALINE 100 ML IV SCH ×4 (03:48→23:28)
[2016-07-10 07:44] LABS: HEMATOCRIT 25.3 % (36.0-47.0); HEMOGLOBIN 8.3 g/dL (12.0-15.5); HGB HCT DIFFERENCE -0.4; MEAN CORPUSCULAR HEMOGLOBIN 26.2 pg (27.0-33.4); MEAN CORPUSCULAR HGB CONC 32.7 g/dL (32.0-36.0); MEAN CORPUSCULAR VOLUME 80 fl (80-97); RED BLOOD COUNT 3.15 10^6/uL (3.72-5.28); RED CELL DISTRIBUTION WIDTH 19.5 % (11.5-14.0); WHITE BLOOD COUNT 11.5 10^3/uL (4.0-10.5)
[2016-07-10 08:05] LABS: ANION GAP 10 (5-19); BLOOD UREA NITROGEN 9 mg/dL (7-20); CALCIUM 8.7 mg/dL (8.4-10.2); CARBON DIOXIDE 24 mmol/L (22-30); CHLORIDE 109 mmol/L (98-107); CREATININE RESULT 0.64 mg/dL (0.52-1.25); GLUCOSE 79 mg/dL (75-110); POTASSIUM 4.1 mmol/L (3.6-5.0); SODIUM 142.8 mmol/L (137-145)
--- NOTE | 2016-07-10 08:27 | PDOC CONSULTATION ---
Consultation Consult Date: 07/10/16 Attending physician:: HAL DELANEY Consult reason:: Stage 3 colon ca here w/ wound dehisence, infection History of Present Illness Admission Date/PCP: 07/09/16 15:36 ANGELES GARCIA MD Patient complains of: as above History of Present Illness: DON KING is a 35 year old female with known history of stage III colon cancer, recently diagnosed, she recently presented with complete obstruction and had a laparoscopic-assisted colectomy, with primary anastomosis. One of the entry sites unfortunately had recent pus, she actually saw us earlier this week and things were going good at that time, but about 2 days prior to admission she began having diffuse drainage from that site. When she presented here she had incision and drainage and now it's being packed, and is plan to heal by secondary intention. She is doing better, she is on IV antibiotics. Past Medical History Cardiac Medical History: Reports: Hypertension Denies: Coronary Artery Disease, Myocardial Infarction Pulmonary Medical History: Reports: Asthma, Bronchitis Denies: Chronic Obstructive Pulmonary Disease (COPD), Pneumonia, Tuberculosis Neurological Medical History: Denies: Seizures Malignancy Medical History: Reports: Colorectal Cancer GI Medical History: Reports: Gastroesophageal Reflux Disease Musculoskeltal Medical History: Denies: Arthritis Psychiatric Medical History: Reports: Bipolar Disorder, Depression Hematology: Reports: Anemia Past Surgical History Past Surgical History: Reports: Cholecystectomy, Hysterectomy, Orthopedic Surgery - Right Femur fx with heaven placement, Other - Laparoscopic colectomy Social History Information Source: Patient Lives with: Family Smoking Status: Never Smoker Cigarettes Packs Per Day: 3 Number of Years Smokin Last Time Smoked: today Frequency of Alcohol Use: None Hx Recreational Drug Use: No Hx Prescription Drug Abuse: No - Advance Directive Resuscitation Status: Full Code Family History Family History: DM, Hypertension, Other - anemia, cancer as in history of present illness Parental Family History Reviewed: Yes Children Family History Reviewed: Yes Sibling(s) Family History Reviewed.: Yes Medication/Allergy Home Medications: Lisinopril/Hydrochlorothiazide [Zestoretic 20-12.5 mg Tablet] 1 tab PO DAILY Methocarbamol [Robaxin 750 mg Tablet] 750 mg PO TIDP PRN 07/09/16 Oxycodone HCl 20 mg PO TID 07/09/16 Allergies/Adverse Reactions: risperidone [From Risperdal] Allergy (Unknown, Verified 07/09/16 11:21) tramadol [Tramadol] Adverse Reaction (Intermediate, Verified 07/09/16 11:21) Nausea ibuprofen [Ibuprofen] Adverse Reaction (Mild, Verified 07/09/16 11:21) Nausea Review of Systems Constitutional: ABSENT: chills, fever(s), headache(s), weight gain, weight loss Eyes: ABSENT: visual disturbances Ears: ABSENT: hearing changes Cardiovascular: ABSENT: chest pain, dyspnea on exertion, edema, orthropnea, palpitations Respiratory: ABSENT: cough, hemoptysis Gastrointestinal: ABSENT: abdominal pain, constipation, diarrhea, hematemesis, hematochezia, nausea, vomiting Genitourinary: ABSENT: dysuria, hematuria Musculoskeletal: ABSENT: joint swelling Integumentary: ABSENT: rash, wounds Neurological: ABSENT: abnormal gait, abnormal speech, confusion, dizziness, focal weakness, syncope Psychiatric: ABSENT: anxiety, depression, homidical ideation, suicidal ideation Endocrine: ABSENT: cold intolerance, heat intolerance, polydipsia, polyuria Hematologic/Lymphatic: ABSENT: easy bleeding, easy bruising Physical Exam Vital Signs: Temp Pulse Resp BP Pulse Ox 98.0 F 107 H 18 117/68 97 07/10/16 07:55 07/10/16 07:55 07/10/16 07:55 07/10/16 07:55 07/10/16 07:55 Intake & Output 07/09/16 07/10/16 07/11/16 06:59 06:59 06:59 Intake Total 1990 Output Total 525 Balance 1465 Weight 114 kg General appearance: PRESENT: no acute distress, well-developed, well-nourished Head exam: PRESENT: atraumatic, normocephalic Eye exam: PRESENT: conjunctiva pink, EOMI, PERRLA. ABSENT: scleral icterus Ear exam: PRESENT: normal external ear exam Mouth exam: PRESENT: moist, tongue midline Neck exam: ABSENT: carotid bruit, JVD, lymphadenopathy, thyromegaly Respiratory exam: PRESENT: clear to auscultation colt. ABSENT: rales, rhonchi, wheezes Cardiovascular exam: PRESENT: RRR. ABSENT: diastolic murmur, rubs, systolic murmur Pulses: PRESENT: normal dorsalis pedis pul Vascular exam: PRESENT: normal capillary refill GI/Abdominal exam: PRESENT: normal bowel sounds, soft. ABSENT: distended, guarding, mass, organolmegaly, rebound, tenderness Rectal exam: PRESENT: deferred Extremities exam: PRESENT: full ROM. ABSENT: calf tenderness, clubbing, pedal edema Neurological exam: PRESENT: alert, awake, oriented to person, oriented to place , oriented to time, oriented to situation, CN II-XII grossly intact. ABSENT: motor sensory deficit Psychiatric exam: PRESENT: appropriate affect, normal mood. ABSENT: homicidal ideation, suicidal ideation Skin exam: PRESENT: dry, intact, warm. ABSENT: cyanosis, rash Results Laboratory Results: 07/10/16 07:00 07/10/16 07:00 07/09/16 07/10/16 07/10/16 17:31 07:00 07:00 WBC 11.5 H RBC 3.15 L Hgb 8.3 L Hct 25.3 L MCV 80 MCH 26.2 L MCHC 32.7 RDW 19.5 H Plt Count 761 H Sodium 142.8 Potassium 4.1 Chloride 109 H Carbon Dioxide 24 Anion Gap 10 BUN 9 Creatinine 0.64 Est GFR ( Amer) > 60 Est GFR (Non-Af Amer) > 60 Glucose 79 Calcium 8.7 Urine Color YELLOW Urine Appearance SLIGHTLY-CLOUDY Urine pH 7.0 Ur Specific Wendell 1.010 Urine Protein NEGATIVE Urine Glucose (UA) NEGATIVE Urine Ketones NEGATIVE Urine Blood NEGATIVE Urine Nitrite NEGATIVE Ur Leukocyte Esterase TRACE H Urine WBC (Auto) 1 Urine RBC (Auto) 0 Assessment & Plan - Diagnosis (1) Colon cancer Qualifiers: Colon location: ascending Qualified Code(s): C18.2 - Malignant neoplasm of ascending colon Is this a current diagnosis for this admission?: YesPlan: Known history of stage III colon cancer, ultimately will need port placement once we are comfortable she is no longer infected, continue with IV antibiotics per surgical team. We will continue to see as an outpatient. (2) Anemia Qualifiers: Anemia type: iron deficiency Is this a current diagnosis for this admission?: YesPlan: Previous iron deficiency anemia, hemoglobin is in the 9 range in stable, would not transfuse at this point. Would not give IV iron either because she is infected. (3) Thrombocytosis Is this a current diagnosis for this admission?: YesPlan: Likely related to infection, not likely to be a primary process. Would normalize after infection is completed. - Time Time Spent: Greater than 70 Minutes Critical Time spent with patient: 35 or more minutes - Inpatient Certification Based on my medical assessment, after consideration of the patient's comorbidities, presenting symptoms, or acuity I expect that the services needed warrant INPATIENT care.: Yes I certify that my determination is in accordance with my understanding of Medicare's requirements for reasonable and necessary INPATIENT services [42 CFR 412.3e].: Yes Medical Necessity: Need for IV Antibiotics
[2016-07-10] MEDS: FAMOTIDINE 20 MG TABLET PO SCH ×2 (10:27→23:31)
[2016-07-10] MEDS: DOCUSATE SODIUM 100 MG CAPSULE PO SCH (10:27)
[2016-07-10] MEDS: ENOXAPARIN SODIUM INJ 40 MG/0.4 ML DISP.SYRIN SUBCUT SCH (10:28)
[2016-07-10] MEDS: OXYCODONE-ACETAMINOPHEN 5-325 MG TABLET PO PRN ×2 (10:38→20:25)
--- NOTE | 2016-07-10 12:53 | PROGRESS NOTE E ---
Progress Note NAME: DON KING : 1980 AGE: 35Y DATE: 07/10/2016 ROOM: 532 SUBJECTIVE: The patient has no complaints. She denies abdominal wound pain. She is tolerating p.o. well. OBJECTIVE: VITAL SIGNS: Are stable. Patient is currently afebrile; temperature 98. Pulse 107. Blood pressure 117/68. ABDOMEN: Soft. Midline abdominal wound is clean with no odor, decreased cellulitis, and decreased tenderness. LABORATORY: White blood cell count down to 11.5. H and H and 25. Platelet count of 761. Electrolytes and platelet count are within normal limit. Culture results from abdominal wound site reveal gram-positive cocci with identification and sensitivity pending. ASSESSMENT: 1. Status post ileocecectomy 10 days ago for ruptured appendicitis in cecum containing a tumor. 2. Postop day #1 following incision/drainage of an abscess in midline abdominal wound. 3. The patient's vital signs improved with decreased heart rate from the high 120s to the current 107. 4. Blood pressure count decreased from the initial 16.3 to 11.5 today. 5. Culture taken from the abdominal wound abscess showed gram-positive cocci with identification and sensitivity pending. PLAN: 1. Continue the current IV antibiotic regimen (Zosyn). 2. Continue IV fluids. 3. Start dressing changes daily with triple antibiotic ointment applied to the wound followed by packing with packing strip. 4. As soon as a culture sensitivity and identification is back, the patient can be started on oral antibiotic and discharged home. DICTATING PHYSICIAN: BERTHA CASAS M.D. [id number] PHY#: [id number] ID: [id number] JOB#: [id number] ACCT: [id number] cc: > [facility]
[2016-07-10] MEDS ORDERED: NEOMY/BACITRAC ZN/POLY OINT 15 GM TP SCH (13:00)
[2016-07-11 05:09] LABS: HEMATOCRIT 24.2 % (36.0-47.0); HEMOGLOBIN 8.1 g/dL (12.0-15.5); HGB HCT DIFFERENCE 0.1; MEAN CORPUSCULAR HEMOGLOBIN 26.6 pg (27.0-33.4); MEAN CORPUSCULAR HGB CONC 33.5 g/dL (32.0-36.0); MEAN CORPUSCULAR VOLUME 79 fl (80-97); RED BLOOD COUNT 3.06 10^6/uL (3.72-5.28); RED CELL DISTRIBUTION WIDTH 18.9 % (11.5-14.0); WHITE BLOOD COUNT 12.2 10^3/uL (4.0-10.5)
[2016-07-11 05:27] LABS: ANION GAP 10 (5-19); BLOOD UREA NITROGEN 6 mg/dL (7-20); CALCIUM 8.5 mg/dL (8.4-10.2); CARBON DIOXIDE 26 mmol/L (22-30); CHLORIDE 108 mmol/L (98-107); CREATININE RESULT 0.58 mg/dL (0.52-1.25); GLUCOSE 84 mg/dL (75-110); POTASSIUM 3.8 mmol/L (3.6-5.0); SODIUM 143.8 mmol/L (137-145)
[2016-07-11] MEDS: AMOXICILLIN TR/POT CLAVULANATE 500-125 MG TAB PO SCH ×2 (06:55→13:52)
[2016-07-11] MEDS: OXYCODONE-ACETAMINOPHEN 5-325 MG TABLET PO PRN ×2 (07:39→13:52)
--- NOTE | 2016-07-11 08:30 | PDOC PROGRESS REPORT ---
Subjective Progress Note for:: 07/11/16 Subjective:: No acute events overnight, patient still having draining from the abdominal wound Physical Exam Vital Signs: Temp Pulse Resp BP Pulse Ox 98.2 F 104 H 18 131/78 H 97 07/11/16 07:32 07/11/16 07:32 07/11/16 07:32 07/11/16 07:32 07/11/16 07:32 Intake & Output 07/10/16 07/11/16 07/12/16 06:59 06:59 06:59 Intake Total 1989 1160 Output Total 525 Balance 1465 1160 Weight 114 kg 115 kg General appearance: PRESENT: no acute distress, well-developed, well-nourished Head exam: PRESENT: atraumatic, normocephalic Eye exam: PRESENT: conjunctiva pink, EOMI, PERRLA. ABSENT: scleral icterus Ear exam: PRESENT: normal external ear exam Mouth exam: PRESENT: moist, tongue midline Neck exam: ABSENT: carotid bruit, JVD, lymphadenopathy, thyromegaly Respiratory exam: PRESENT: clear to auscultation colt. ABSENT: rales, rhonchi, wheezes Cardiovascular exam: PRESENT: RRR. ABSENT: diastolic murmur, rubs, systolic murmur Pulses: PRESENT: normal dorsalis pedis pul Vascular exam: PRESENT: normal capillary refill GI/Abdominal exam: PRESENT: normal bowel sounds, soft. ABSENT: distended, guarding, mass, organolmegaly, rebound, tenderness Rectal exam: PRESENT: deferred Extremities exam: PRESENT: full ROM. ABSENT: calf tenderness, clubbing, pedal edema Neurological exam: PRESENT: alert, awake, oriented to person, oriented to place , oriented to time, oriented to situation, CN II-XII grossly intact. ABSENT: motor sensory deficit Psychiatric exam: PRESENT: appropriate affect, normal mood. ABSENT: homicidal ideation, suicidal ideation Skin exam: PRESENT: dry, intact, warm. ABSENT: cyanosis, rash Results Laboratory Results: 07/11/16 04:33 07/11/16 04:33 07/11/16 07/11/16 04:33 04:33 WBC 12.2 H RBC 3.06 L Hgb 8.1 L Hct 24.2 L MCV 79 L MCH 26.6 L MCHC 33.5 RDW 18.9 H Plt Count 698 H Sodium 143.8 Potassium 3.8 Chloride 108 H Carbon Dioxide 26 Anion Gap 10 BUN 6 L Creatinine 0.58 Est GFR ( Amer) > 60 Est GFR (Non-Af Amer) > 60 Glucose 84 Calcium 8.5 Assessment & Plan - Diagnosis (1) Colon cancer Qualifiers: Colon location: ascending Qualified Code(s): C18.2 - Malignant neoplasm of ascending colon Is this a current diagnosis for this admission?: YesPlan: Plan for further chemotherapy as an outpatient, hopeful quick healing of the abdominal wound. (2) Anemia Qualifiers: Anemia type: iron deficiency Is this a current diagnosis for this admission?: YesPlan: Into to monitor (3) Thrombocytosis Is this a current diagnosis for this admission?: Yes
[2016-07-11] MEDS: ENOXAPARIN SODIUM INJ 40 MG/0.4 ML DISP.SYRIN SUBCUT SCH (09:38)
[2016-07-11] MEDS: FAMOTIDINE 20 MG TABLET PO SCH (11:36)
[2016-07-11] MEDS: DOCUSATE SODIUM 100 MG CAPSULE PO SCH (11:37)
--- NOTE | 2016-07-11 17:23 | PROGRESS NOTE E ---
Progress Note NAME: DON KING : 1980 AGE: 35Y DATE: 07/11/2016 ROOM: 532 SUBJECTIVE: No complaints. OBJECTIVE: VITAL SIGNS: Stable. Patient is afebrile. I's and O's with 1100 intake and output have not been measured. One bowel movement reported. ABDOMEN: Soft. Incision is clean and granulating with a small amount of drainage and no odor. LABORATORY: Review of labs. White blood cell count 12. H and H 8.1 and 25. Electrolytes: BUN and creatinine within normal limits. ASSESSMENT: 1. POSTOP DAY #2 FOLLOWING INCISION AND DRAINAGE OF ABDOMINAL WOUND ABSCESS. 2. CULTURES POSITIVE FOR ENTEROCOCCUS. 3. BLOOD WORK SHOWS A SLIGHT ELEVATION OF WHITE BLOOD CELL COUNT ABOUT 12. 4. PHYSICAL EXAM UNREMARKABLE WITH ABDOMINAL WOUND CLEAN WITH SMALL AMOUNT OF DRAINAGE. PLAN: 1. Discharge home today on Augmentin 675 mg p.o. b.i.d. 2. Dressing changes twice a day with normal saline wet-to-dry sponges with triple antibiotic ointment. 3. Follow up in the surgery office within a week. DICTATING PHYSICIAN: BERTHA CASAS M.D. [id number] PHY#: [id number] ID: [id number] JOB#: [id number] ACCT: [id number] cc: > [facility]
--- NOTE | 2016-07-11 17:33 | DISCHARGE SUMMARY E ---
Discharge Summary NAME: DON KING : 1980 AGE: 35Y ADMITTED: 07/09/2016 DISCHARGED: 07/11/2016 FINAL DIAGNOSES: 1. Abdominal wound abscess. 2. Status post laparotomy with ileocecectomy. 3. Colon cancer stage III. PROCEDURE: On 07/09/2016, the patient underwent incision and drainage of abdominal wound abscess. COMPLICATIONS: None. HOSPITAL COURSE: A 35-year-old female status post ileocecectomy for perforated appendicitis forming in cecum containing colon cancer stage III. The procedure was done about 10 days prior to the hospital re-admission. The patient presented with an abscess with drainage from the mid abdominal wound. The wound was opened at bedside, and large amount of purulent material was obtained. This was sent for culture which was positive for Enterococcus. She was then admitted. She was kept on IV antibiotics, IV fluids and dressing changes. On the day of discharge, the patient had no complaints. Her physical exam was unremarkable. Her blood work revealed a slightly elevated white blood cell count of 12. The wound was clean with very small amount of drainage with no odor. PLAN: The patient was discharged to home on 07/11/2016. She was given Augmentin 875 mg p.o. b.i.d. for 10 days. The patient was instructed to change the abdominal wound dressings twice a day with a normal saline wet-to-dry technique with triple antibiotic ointment. She was instructed to shower. She was given a regular diet and instructed to follow up in the surgical office within a week. She was given Tylenol 325 mg p.o. q.6 hours p.r.n. for pain. DICTATING PHYSICIAN: BERTHA CASAS M.D. [id number] PHY#: [id number] ID: [id number] JOB#: [id number] ACCT: [id number] cc:Reva KENT N.P. > MTDAurelia
[2016-07-11 17:58] VITALS: BP 117/68
== END 2016-07-11 18:42 | disposition home or self-care (01) | DRG 856 ==
LOC: ER 11:16 → EH 15:17 → UNDOADMIN 15:17 → EH 15:36 → 5 16:51
PROVIDERS: ADMIT Surgery; ATTEND Surgery
PROC: 0W9F3ZX Drainage of Abdominal Wall, Percutaneous Approach, Diagnostic (ICD-10-PCS; principal; 2016-07-09)
DX: T81.4XXA Infection following a procedure, initial encounter (principal); K65.1 Peritoneal abscess; C18.2 Malignant neoplasm of ascending colon; B95.2 Enterococcus as the cause of diseases classified elsewhere; I10 Essential (primary) hypertension; J45.909 Unspecified asthma, uncomplicated; K21.9 Gastro-esophageal reflux disease without esophagitis; F31.9 Bipolar disorder, unspecified; D64.9 Anemia, unspecified; D50.9 Iron deficiency anemia, unspecified; D47.3 Essential (hemorrhagic) thrombocythemia; Z88.6 Allergy status to analgesic agent; Z88.8 Allergy status to other drugs, medicaments and biological substances; Z79.899 Other long term (current) drug therapy; Z90.49 Acquired absence of other specified parts of digestive tract; Z90.710 Acquired absence of both cervix and uterus; Z83.3 Family history of diabetes mellitus; Z82.49 Family history of ischemic heart disease and other diseases of the circulatory system; Z83.2 Family history of diseases of the blood and blood-forming organs and certain disorders involving the immune mechanism; Z80.9 Family history of malignant neoplasm, unspecified
CPT/HCPCS: 36415; 80048; 80053; 81001; 82803; 83605; 84484; 85025; 85027; 85610; 87040; 87070; 87075; 87077; 87086; 87186; 87205; 93005; 93010; 99284; J1650; J2543; J3490; J7030

== ENCOUNTER → 2016-07-27 | Outpatient (CLI) | payer OTHER | LOC: RAD 08:23 | PROVIDERS: ATTEND Internal Medicine | DX: C18.2 Malignant neoplasm of ascending colon (principal) | CPT/HCPCS: 71260; 74177 ==

== ENCOUNTER 2016-08-10 08:43 | Day surgery (SDC) | payer OTHER ==
[~2016-08-10 08:43] MED LIST: ACETAMINOPHEN 325 MG TABLET PO PRN; CEFAZOLIN 1 GM/D5W RTU 1 GM/50 ML RTUPB IV PRN; RINGERS SOLUTION,LACTATED 1,000 ML IV PRN
[2016-08-10 09:22] LABS: HEMATOCRIT 37.2 % (36.0-47.0); HEMOGLOBIN 12.3 g/dL (12.0-15.5); HGB HCT DIFFERENCE -0.3; MEAN CORPUSCULAR HEMOGLOBIN 26.2 pg (27.0-33.4); MEAN CORPUSCULAR HGB CONC 33.2 g/dL (32.0-36.0); MEAN CORPUSCULAR VOLUME 79 fl (80-97); RED CELL DISTRIBUTION WIDTH 20.6 % (11.5-14.0); WHITE BLOOD COUNT 8.4 10^3/uL (4.0-10.5)
[2016-08-10] MEDS ORDERED: MIDAZOLAM 2 MG/2 ML INJ ONE ×3 (09:31→10:46)
[2016-08-10] MEDS ORDERED: FENTANYL CITRATE INJ/PF 100 MCG/2 ML AMPUL ONE ×2 (09:32→10:41)
[2016-08-10] MEDS ORDERED: BACITRACIN INJ 50,000 UNIT VIAL IR PRN (09:51)
[2016-08-10] MEDS ORDERED: LIDOCAINE 0.5% INJ-PF (5 MG/ML) 50 ML SDV ONE (10:03)
--- NOTE | 2016-08-10 11:23 | PDOC DISCHARGE SUMMARY ---
Discharge Summary (SDC) - Discharge Final Diagnosis: Stage III colon cancer Date of Surgery: 08/10/16 Discharge Date: 08/10/16 Condition: Good Treatment or Instructions: May use catheter; no showering for 48 hours; patient to take by mouth Percocet which she has a prescription for Discharge Diet: As Tolerated Discharge Activity: Activity As Tolerated, No Lifting Over 10 Pounds Home Care Assistance: None Needed Report the Following to Your Physician Immediately: Shortness of Breath, Increase in Pain, Fever over 101 Degrees
--- NOTE | 2016-08-10 11:28 | Operative Report ---
Operative Report DATE OF SURGERY: 08/10/16 PREOPERATIVE DIAGNOSIS: Stage III colon cancer POSTOPERATIVE DIAGNOSIS: Same OPERATION: 1. Focused ultrasound of the right neck. 2. DIRECT INSERTION OF RIGHT SUBCLAVIAN [id number] CATHETER INTO THE RIGHT INTERNAL JUGULAR VEIN. 3. VENACAVOGRAM. 4. Interpretation OF INTRAOPERATIVE IMAGING SURGEON: HAL DELANEY ANESTHESIA: Moderate Sedation TISSUE REMOVED OR ALTERED: None COMPLICATIONS: none ESTIMATED BLOOD LOSS: scant INTRAOPERATIVE FINDINGS: See below PROCEDURE: Informed consent was obtained. Patient was positioned in the cardiac catheterization lab table. The patient was placed in Trendelenburg the right neck and chest wall were exposed, and prepped and draped in a sterile fashion. Surgical plan and surgical timeout discussed. The right neck was anesthetized with 1% lidocaine without epinephrine. Using the variable frequency linear transducer, real time, a microneedle and wire were threaded into the right internal jugular vein. A suitable site for placement of the port was chosen in the right subclavian position. Skin was anesthetized with 1% lidocaine plain. A 3 cm incision was made and the subcutaneous plane and position, and a port pocket developed large enough to accommodate a single-chamber port was created with blunt and electrocautery dissection. The single-lumen catheter was trimmed to appropriate length and tunneled between the 2 incisions. It was connected to the port with the plastic ring. We then switched the microneedle over to conventional 0.035 guidewire using the micro-sheath. We then dilated up the tract, the dilator removed, and the c atheter was threaded into the right internal jugular vein uneventfully. There was excellent aspiration and flush of saline. We shot a quick venogram which showed the catheter in good position, no kinking, and patency as per vena cava. There was no evidence of extravasation. Port re-flushed with heparinized saline, and wounds closed with 3-0 Vicryl benzoin and Steri-Strips. The patient tolerated the procedure well. There were no complications. Portable upright chest x-ray pending at time of dictation.
[2016-08-10 13:25] VITALS: BP 128/78
== END 2016-08-10 12:30 | disposition home or self-care (01) ==
LOC: CCL 08:43
PROVIDERS: ATTEND Surgery
PROC: 05H533Z Insertion of Infusion Device into Right Subclavian Vein, Percutaneous Approach (ICD-10-PCS; principal; 2016-08-10)
DX: C18.2 Malignant neoplasm of ascending colon (principal); I10 Essential (primary) hypertension; J45.909 Unspecified asthma, uncomplicated; F31.30 Bipolar disorder, current episode depressed, mild or moderate severity, unspecified; F17.210 Nicotine dependence, cigarettes, uncomplicated; Z88.5 Allergy status to narcotic agent; Z88.6 Allergy status to analgesic agent; Z88.8 Allergy status to other drugs, medicaments and biological substances; Z79.899 Other long term (current) drug therapy
CPT/HCPCS: 36415; 85027; 36561; 76937; 77001; C1788; C1752; Q9967; J2250; J3490 ×2; J0690; J3010; J1644

== ENCOUNTER 2016-08-15 10:09 | Outpatient (CLI) | payer OTHER ==
[~2016-08-15 10:09] MED LIST changes: -ACETAMINOPHEN 325 MG TABLET PO PRN; -CEFAZOLIN 1 GM/D5W RTU 1 GM/50 ML RTUPB IV PRN; +CONTAINER EMPTY IV PRN; +DEXTROSE 5% IV PRN; +DEXTROSE 5%-WATER 250 ML IV PRN; +DISPOSABLE IV PRN; +FLUOROURACIL IV PRN; +FOSAPREPITANT DIMEGLUMINE 150 MG in NORMAL SALINE 150 ML IV PRN; +LEUCOVORIN CALCIUM IV PRN; +ONDANSETRON HCL/PF 16 MG, DEXAMETHASONE SOD PHOSPHATE 10 MG in NORMAL SALINE 50 ML IV PRN; +OXALIPLATIN IV PRN; -RINGERS SOLUTION,LACTATED 1,000 ML IV PRN; +WATER IV PRN
[2016-08-15 11:05] VITALS: BP 153/88
== END 2016-08-15 15:03 | disposition home or self-care (01) ==
LOC: II 10:09 → 5TH 10:10 → II 15:03
PROVIDERS: ATTEND Internal Medicine
PROC: 3E04305 Introduction of Other Antineoplastic into Central Vein, Percutaneous Approach (ICD-10-PCS; principal; 2016-08-15)
PROC: 3E043GC Introduction of Other Therapeutic Substance into Central Vein, Percutaneous Approach (ICD-10-PCS; 2016-08-15)
DX: Z51.11 Encounter for antineoplastic chemotherapy (principal); C18.2 Malignant neoplasm of ascending colon
CPT/HCPCS: 96409; 96413; 96415; 96367; 96374; 96360; 96417; J0640; J3490 ×2; J9190; J2405; J7060; J1100; J1453; J9263; 96368; 96416

== ENCOUNTER 2016-08-18 11:18 | Outpatient (CLI) | payer OTHER ==
[2016-08-18] MEDS ORDERED: PROMETHAZINE HCL INJ 25 MG/1 ML VIAL IV PRN (12:00)
[2016-08-18] MEDS ORDERED: NORMAL SALINE 1000 ML 2,000 ML IV PRN (12:00)
[2016-08-18] MEDS ORDERED: HYDROMORPHONE HCL INJ/PF 2 MG/ML AMPULE IV PRN (12:11)
[2016-08-18] MEDS ORDERED: DIPHENHYDRAMINE HCL 50 MG/ML VIAL ONE (12:15)
[2016-08-18 12:47] VITALS: BP 131/86
== END 2016-08-18 13:53 | disposition home or self-care (01) ==
LOC: II 11:18 → 5TH 11:27 → II 13:53
PROVIDERS: ATTEND Internal Medicine
PROC: 3E033GC Introduction of Other Therapeutic Substance into Peripheral Vein, Percutaneous Approach (ICD-10-PCS; principal; 2016-08-18)
DX: R11.2 Nausea with vomiting, unspecified (principal); C18.2 Malignant neoplasm of ascending colon
CPT/HCPCS: 96375; 96360; 96361; J1170; J2550; J1200

== ENCOUNTER 2016-08-29 11:00 | Outpatient (CLI) | payer OTHER ==
[~2016-08-29 11:00] MED LIST changes: -DEXTROSE 5%-WATER 250 ML IV PRN; +FERRIC CARBOXYMALTOSE 750 MG in NORMAL SALINE 250 ML IV PRN; +NORMAL SALINE 250 ML IV PRN
[2016-08-29 11:22] VITALS: BP 112/66
[2016-08-29] MEDS: DEXTROSE 5%-WATER 250 ML IV PRN ×3 (11:46→13:21)
== END 2016-08-29 15:27 | disposition home or self-care (01) ==
LOC: II 11:00 → 5TH 11:04 → II 15:27
PROVIDERS: ATTEND Internal Medicine
PROC: 3E04305 Introduction of Other Antineoplastic into Central Vein, Percutaneous Approach (ICD-10-PCS; principal; 2016-08-29)
PROC: 3E043GC Introduction of Other Therapeutic Substance into Central Vein, Percutaneous Approach (ICD-10-PCS; 2016-08-29)
DX: Z51.11 Encounter for antineoplastic chemotherapy (principal); C18.2 Malignant neoplasm of ascending colon; D50.9 Iron deficiency anemia, unspecified; K90.9 Intestinal malabsorption, unspecified
CPT/HCPCS: 96409; 96413; 96415; 96416; 96365; 96366; 96374; 96360; 96361; 96417; J0640; J3490 ×2; J9190; J2405; J7060; J7050; J1100; J1453; J9263; J1439; 96367; 96368; 96375; 96411

== ENCOUNTER 2016-09-12 08:57 | Outpatient (CLI) | payer OTHER ==
[~2016-09-12 08:57] MED LIST changes: +DEXTROSE 5%-WATER 250 ML IV PRN; +NORMAL SALINE 10 ML SDV (AFTER EACH USE) IV PRN
[2016-09-12 10:07] LABS: ABSOLUTE EOSINOPHILS # (AUTO) 0.1 10^3/uL (0.0-0.6); ABSOLUTE LYMPHOCYTES (AUTO) 2.9 10^3/uL (0.5-4.7); ABSOLUTE MONOCYTES (AUTO) 0.9 10^3/uL (0.1-1.4); ABSOLUTE NEUT (AUTO) 4.2 10^3/uL (1.7-8.2); BASOPHILS % (AUTO) 0.4 % (0-2); EOSINOPHILS % (AUTO) 0.6 % (0-6); HEMATOCRIT 45.8 % (36.0-47.0); HEMOGLOBIN 14.5 g/dL (12.0-15.5); HGB HCT DIFFERENCE -2.3; LYMPHOCYTES % (AUTO) 35.6 % (13-45); MEAN CORPUSCULAR HEMOGLOBIN 25.4 pg (27.0-33.4); MEAN CORPUSCULAR HGB CONC 31.7 g/dL (32.0-36.0); MEAN CORPUSCULAR VOLUME 80 fl (80-97); MONOCYTES % (AUTO) 11.1 % (3-13); RED BLOOD COUNT 5.71 10^6/uL (3.72-5.28); SEGMENTED NEUTROPHILS % (AUTO) 52.3 % (42-78)
[2016-09-12 10:17] VITALS: BP 119/88
[2016-09-12 10:32] LABS: ALANINE AMINOTRANSFERASE 42 U/L (9-52); ALKALINE PHOSPHATASE 170 U/L (38-126); ANION GAP 9 (5-19); ASPARTATE AMINO TRANSFERASE 29 U/L (14-36); BILIRUBIN,DIRECT 0.4 mg/dL (0.0-0.4); BILIRUBIN,TOTAL 0.4 mg/dL (0.2-1.3); BLOOD UREA NITROGEN 9 mg/dL (7-20); CALCIUM 8.8 mg/dL (8.4-10.2); CARBON DIOXIDE 31 mmol/L (22-30); CHLORIDE 101 mmol/L (98-107); CREATININE RESULT 0.67 mg/dL (0.52-1.25); GLUCOSE 95 mg/dL (75-110); SODIUM 141.2 mmol/L (137-145); TOTAL PROTEIN 6.2 g/dL (6.3-8.2)
[2016-09-12] MEDS ORDERED: OXYCODONE HCL IR 5 MG TABLET PO ONE (11:45)
== END 2016-09-12 15:15 | disposition home or self-care (01) ==
LOC: II 08:57 → 5TH 09:18 → II 15:15
PROVIDERS: ATTEND Internal Medicine
PROC: 3E04305 Introduction of Other Antineoplastic into Central Vein, Percutaneous Approach (ICD-10-PCS; principal; 2016-09-12)
PROC: 3E043GC Introduction of Other Therapeutic Substance into Central Vein, Percutaneous Approach (ICD-10-PCS; 2016-09-12)
DX: Z51.11 Encounter for antineoplastic chemotherapy (principal); C18.2 Malignant neoplasm of ascending colon; D50.9 Iron deficiency anemia, unspecified; K90.9 Intestinal malabsorption, unspecified
CPT/HCPCS: 96409; 96413; 96415; 96416; 96365; 96366; 96375; 96360; 96361; 96417; 36415; 85025; 80053; J0640; J3490 ×2; J9190; J2405; J7060; J7050; J1100; J1453; J9263; J1439; 96367; 96368; 96411

== ENCOUNTER 2016-09-26 10:04 | Outpatient (CLI) | payer OTHER ==
[~2016-09-26 10:04] MED LIST changes: -DISPOSABLE IV PRN; -FERRIC CARBOXYMALTOSE 750 MG in NORMAL SALINE 250 ML IV PRN; +FLUOROURACIL 728 MG in SYRINGE, DISPOSABLE, 1 EACH IV PRN; -NORMAL SALINE 10 ML SDV (AFTER EACH USE) IV PRN; -NORMAL SALINE 250 ML IV PRN; +ONDANSETRON HCL INJ/PF 4 MG/2 ML SDV ONE; +OXALIPLATIN 150 MG in DEXTROSE 5%-WATER 250 ML IV PRN
[2016-09-26 10:55] VITALS: BP 139/93
[2016-09-26 12:17] LABS: ALANINE AMINOTRANSFERASE 33 U/L (9-52); ALBUMIN 2.6 g/dL (3.5-5.0); ALKALINE PHOSPHATASE 142 U/L (38-126); ANION GAP 6 (5-19); ASPARTATE AMINO TRANSFERASE 19 U/L (14-36); BILIRUBIN,DIRECT 0.2 mg/dL (0.0-0.4); BILIRUBIN,TOTAL 0.2 mg/dL (0.2-1.3); BLOOD UREA NITROGEN 3 mg/dL (7-20); CALCIUM 8.4 mg/dL (8.4-10.2); CARBON DIOXIDE 33 mmol/L (22-30); CHLORIDE 104 mmol/L (98-107); GLUCOSE 92 mg/dL (75-110); SODIUM 142.5 mmol/L (137-145); TOTAL PROTEIN 5.4 g/dL (6.3-8.2)
[2016-09-26 12:35] LABS: POTASSIUM 2.6 mmol/L (3.6-5.0)
[2016-09-26] MEDS ORDERED: POTASSIUM CHLORIDE 20 MEQ/50 ML RTU IV SCH (13:15)
== END 2016-09-26 19:01 | disposition home or self-care (01) ==
LOC: 5TH 10:04 → II 10:04
PROVIDERS: ATTEND Internal Medicine
PROC: 3E03305 Introduction of Other Antineoplastic into Peripheral Vein, Percutaneous Approach (ICD-10-PCS; principal; 2016-09-26)
PROC: 3E033GC Introduction of Other Therapeutic Substance into Peripheral Vein, Percutaneous Approach (ICD-10-PCS; 2016-09-26)
DX: Z51.11 Encounter for antineoplastic chemotherapy (principal); C18.2 Malignant neoplasm of ascending colon; D50.9 Iron deficiency anemia, unspecified; K90.9 Intestinal malabsorption, unspecified
CPT/HCPCS: 96409; 96413; 96415; 96416; 96367; 96375; 96417; 36415; 80053; J0640; J3490 ×2; J9190; J2405; J3480; J7060; J1100; J1453; J9263; 96411

== ENCOUNTER 2016-10-10 10:21 | Outpatient (CLI) | payer OTHER ==
[~2016-10-10 10:21] MED LIST changes: +DISPOSABLE IV PRN; -FLUOROURACIL 728 MG in SYRINGE, DISPOSABLE, 1 EACH IV PRN; -ONDANSETRON HCL INJ/PF 4 MG/2 ML SDV ONE; -OXALIPLATIN 150 MG in DEXTROSE 5%-WATER 250 ML IV PRN
[2016-10-10 10:59] VITALS: BP 131/89
[2016-10-10 11:20] LABS: ALANINE AMINOTRANSFERASE 25 U/L (9-52); ALBUMIN 3.2 g/dL (3.5-5.0); ALKALINE PHOSPHATASE 140 U/L (38-126); ANION GAP 11 (5-19); ASPARTATE AMINO TRANSFERASE 18 U/L (14-36); BILIRUBIN,DIRECT 0.3 mg/dL (0.0-0.4); BILIRUBIN,TOTAL 0.3 mg/dL (0.2-1.3); BLOOD UREA NITROGEN 7 mg/dL (7-20); CALCIUM 8.9 mg/dL (8.4-10.2); CARBON DIOXIDE 23 mmol/L (22-30); CHLORIDE 111 mmol/L (98-107); CREATININE RESULT 0.65 mg/dL (0.52-1.25); GLUCOSE 118 mg/dL (75-110); POTASSIUM 3.1 mmol/L (3.6-5.0); SODIUM 144.5 mmol/L (137-145); TOTAL PROTEIN 6.6 g/dL (6.3-8.2)
[2016-10-12] MEDS ORDERED: NORMAL SALINE 10 ML SDV (AFTER EACH USE) IV PRN (05:00)
== END 2016-10-10 15:41 | disposition home or self-care (01) ==
LOC: II 10:21 → 5TH 11:04 → II 15:41
PROVIDERS: ATTEND Internal Medicine
PROC: 3E03305 Introduction of Other Antineoplastic into Peripheral Vein, Percutaneous Approach (ICD-10-PCS; principal; 2016-10-10)
PROC: 3E033GC Introduction of Other Therapeutic Substance into Peripheral Vein, Percutaneous Approach (ICD-10-PCS; 2016-10-10)
DX: Z51.11 Encounter for antineoplastic chemotherapy (principal); C18.2 Malignant neoplasm of ascending colon; D50.9 Iron deficiency anemia, unspecified; K90.9 Intestinal malabsorption, unspecified
CPT/HCPCS: 96409; 96413; 96415; 96416; 96367; 96375; 96417; 80053; J0640; J3490 ×2; J9190; J2405; J7060; J1100; J1453; J9263; 96368; 96411

== ENCOUNTER 2016-10-24 08:56 | Outpatient (CLI) | payer OTHER ==
[2016-10-24 09:18] LABS: HEMOGLOBIN 13.3 g/dL (12.0-15.5); HGB HCT DIFFERENCE -1.1; MEAN CORPUSCULAR HEMOGLOBIN 27.8 pg (27.0-33.4); MEAN CORPUSCULAR HGB CONC 32.6 g/dL (32.0-36.0); MEAN CORPUSCULAR VOLUME 85 fl (80-97); RED CELL DISTRIBUTION WIDTH 29.7 % (11.5-14.0); WHITE BLOOD COUNT 7.4 10^3/uL (4.0-10.5)
[2016-10-24 09:35] LABS: ALANINE AMINOTRANSFERASE 29 U/L (9-52); ALKALINE PHOSPHATASE 139 U/L (38-126); ANION GAP 6 (5-19); ASPARTATE AMINO TRANSFERASE 29 U/L (14-36); BILIRUBIN,DIRECT 0.4 mg/dL (0.0-0.4); BILIRUBIN,TOTAL 0.5 mg/dL (0.2-1.3); BLOOD UREA NITROGEN 5 mg/dL (7-20); CALCIUM 8.7 mg/dL (8.4-10.2); CARBON DIOXIDE 27 mmol/L (22-30); CHLORIDE 106 mmol/L (98-107); CREATININE RESULT 0.62 mg/dL (0.52-1.25); GLUCOSE 92 mg/dL (75-110); POTASSIUM 3.2 mmol/L (3.6-5.0); SODIUM 138.9 mmol/L (137-145); TOTAL PROTEIN 6.2 g/dL (6.3-8.2)
[2016-10-24 10:55] VITALS: BP 119/74
== END 2016-10-24 14:26 | disposition home or self-care (01) ==
LOC: II 08:56 → 5TH 08:58 → II 14:26
PROVIDERS: ATTEND Internal Medicine
PROC: 3E04305 Introduction of Other Antineoplastic into Central Vein, Percutaneous Approach (ICD-10-PCS; principal; 2016-10-24)
PROC: 3E043GC Introduction of Other Therapeutic Substance into Central Vein, Percutaneous Approach (ICD-10-PCS; 2016-10-24)
DX: Z51.11 Encounter for antineoplastic chemotherapy (principal); C18.2 Malignant neoplasm of ascending colon
CPT/HCPCS: 96409; 96413; 96415; 96416; 96367; 96375; 96417; 36415; 85027; 80053; J0640; J3490 ×2; J9190; J2405; J7060; J1100; J1453; J9263; 96368; 96411

== ENCOUNTER 2016-11-07 09:23 | Outpatient (CLI) | payer OTHER ==
[2016-11-07 10:07] VITALS: BP 119/79
== END 2016-11-07 13:54 | disposition home or self-care (01) ==
LOC: II 09:23 → 5TH 09:37 → II 13:54
PROVIDERS: ATTEND Internal Medicine
PROC: 3E04305 Introduction of Other Antineoplastic into Central Vein, Percutaneous Approach (ICD-10-PCS; principal; 2016-11-07)
PROC: 3E043GC Introduction of Other Therapeutic Substance into Central Vein, Percutaneous Approach (ICD-10-PCS; 2016-11-07)
DX: Z51.11 Encounter for antineoplastic chemotherapy (principal); C18.2 Malignant neoplasm of ascending colon
CPT/HCPCS: 96411; 96413; 96415; 96416; 96367; 96368; J0640; J3490 ×2; J9190; J2405; J7060; J1100; J1453; J9263; 96409; 96417

== ENCOUNTER 2016-11-21 09:12 | Outpatient (CLI) | payer OTHER ==
[2016-11-21 10:11] VITALS: BP 136/87
[2016-11-21 10:12] LABS: ALANINE AMINOTRANSFERASE 28 U/L (9-52); ALBUMIN 3.3 g/dL (3.5-5.0); ALKALINE PHOSPHATASE 168 U/L (38-126); ANION GAP 9 (5-19); ASPARTATE AMINO TRANSFERASE 27 U/L (14-36); BILIRUBIN,DIRECT 0.4 mg/dL (0.0-0.4); BILIRUBIN,TOTAL 0.5 mg/dL (0.2-1.3); BLOOD UREA NITROGEN 7 mg/dL (7-20); CALCIUM 8.9 mg/dL (8.4-10.2); CARBON DIOXIDE 24 mmol/L (22-30); CHLORIDE 107 mmol/L (98-107); CREATININE RESULT 0.62 mg/dL (0.52-1.25); GLUCOSE 112 mg/dL (75-110); POTASSIUM 3.2 mmol/L (3.6-5.0); SODIUM 139.9 mmol/L (137-145); TOTAL PROTEIN 6.7 g/dL (6.3-8.2)
[2016-11-21 10:30] LABS: HEMATOCRIT 36.2 % (36.0-47.0); HEMOGLOBIN 12.1 g/dL (12.0-15.5); HGB HCT DIFFERENCE 0.1; MEAN CORPUSCULAR HGB CONC 33.3 g/dL (32.0-36.0); RED BLOOD COUNT 3.88 10^6/uL (3.72-5.28); RED CELL DISTRIBUTION WIDTH 25.5 % (11.5-14.0); WHITE BLOOD COUNT 8.8 10^3/uL (4.0-10.5)
[2016-11-21 10:31] LABS: MEAN CORPUSCULAR VOLUME 93 fl (80-97)
== END 2016-11-21 14:19 | disposition home or self-care (01) ==
LOC: II 09:12 → 5TH 10:11 → II 14:19
PROVIDERS: ATTEND Internal Medicine
PROC: 3E04305 Introduction of Other Antineoplastic into Central Vein, Percutaneous Approach (ICD-10-PCS; principal; 2016-11-21)
PROC: 3E033GC Introduction of Other Therapeutic Substance into Peripheral Vein, Percutaneous Approach (ICD-10-PCS; 2016-11-21)
DX: Z51.11 Encounter for antineoplastic chemotherapy (principal); C18.2 Malignant neoplasm of ascending colon; Z90.49 Acquired absence of other specified parts of digestive tract
CPT/HCPCS: 96409; 96413; 96415; 96365; 96366; 96360; 96417; 96523; 36415; 85027; 80053; J0640; J3490 ×2; J9190; J2405; J7060; J1100; J1453; J9263; 96367; 96368; 96375; 96411

== ENCOUNTER 2016-12-05 09:33 | Outpatient (CLI) | payer OTHER ==
[2016-12-05 09:54] LABS: ALANINE AMINOTRANSFERASE 21 U/L (9-52); ALKALINE PHOSPHATASE 148 U/L (38-126); ANION GAP 8 (5-19); ASPARTATE AMINO TRANSFERASE 19 U/L (14-36); BILIRUBIN,DIRECT 0.3 mg/dL (0.0-0.4); BILIRUBIN,TOTAL 0.3 mg/dL (0.2-1.3); BLOOD UREA NITROGEN 9 mg/dL (7-20); CALCIUM 9.1 mg/dL (8.4-10.2); CARBON DIOXIDE 27 mmol/L (22-30); CHLORIDE 109 mmol/L (98-107); CREATININE RESULT 0.69 mg/dL (0.52-1.25); GLUCOSE 96 mg/dL (75-110); POTASSIUM 3.1 mmol/L (3.6-5.0); SODIUM 144.1 mmol/L (137-145); TOTAL PROTEIN 6.2 g/dL (6.3-8.2)
[2016-12-05 10:08] VITALS: BP 136/92
== END 2016-12-05 13:50 | disposition home or self-care (01) ==
LOC: II 09:33 → 5TH 10:06 → II 13:50
PROVIDERS: ATTEND Internal Medicine
PROC: 3E04305 Introduction of Other Antineoplastic into Central Vein, Percutaneous Approach (ICD-10-PCS; principal; 2016-12-05)
PROC: 3E043GC Introduction of Other Therapeutic Substance into Central Vein, Percutaneous Approach (ICD-10-PCS; 2016-12-05)
DX: Z51.11 Encounter for antineoplastic chemotherapy (principal); C18.2 Malignant neoplasm of ascending colon; Z90.49 Acquired absence of other specified parts of digestive tract; Z79.899 Other long term (current) drug therapy
CPT/HCPCS: 96411; 96413; 96415; 96416; 96367; 96375; 80053; J0640; J3490 ×2; J9190; J2405; J7060; J1100; J1453; J9263; 96409; 96417

== ENCOUNTER 2016-12-19 11:22 | Outpatient (CLI) | payer OTHER ==
[~2016-12-19 11:22] MED LIST changes: +NORMAL SALINE 10 ML SDV (AFTER EACH USE) IV PRN
[2016-12-19 11:40] VITALS: BP 121/92
[2016-12-19 11:48] LABS: ALANINE AMINOTRANSFERASE 14 U/L (9-52); ALBUMIN 3.2 g/dL (3.5-5.0); ALKALINE PHOSPHATASE 134 U/L (38-126); ANION GAP 10 (5-19); ASPARTATE AMINO TRANSFERASE 20 U/L (14-36); BILIRUBIN,DIRECT 0.4 mg/dL (0.0-0.4); BILIRUBIN,TOTAL 0.4 mg/dL (0.2-1.3); BLOOD UREA NITROGEN 9 mg/dL (7-20); CALCIUM 9.3 mg/dL (8.4-10.2); CARBON DIOXIDE 24 mmol/L (22-30); CHLORIDE 110 mmol/L (98-107); CREATININE RESULT 0.66 mg/dL (0.52-1.25); GLUCOSE 106 mg/dL (75-110); SODIUM 144.1 mmol/L (137-145); TOTAL PROTEIN 6.3 g/dL (6.3-8.2)
[2016-12-19 11:50] LABS: POTASSIUM 2.9 mmol/L (3.6-5.0)
[2016-12-19] MEDS ORDERED: NORMAL SALINE 250 ML IV PRN (13:00)
[2016-12-19] MEDS ORDERED: POTASSIUM CHLORIDE 20 MEQ/50 ML RTU IV SCH ×2 (13:00)
== END 2016-12-19 16:55 | disposition home or self-care (01) ==
LOC: II 11:22 → 5TH 11:27 → II 16:55
PROVIDERS: ATTEND Internal Medicine
PROC: 3E0430M Introduction of Antineoplastic, Monoclonal Antibody, into Central Vein, Percutaneous Approach (ICD-10-PCS; principal; 2016-12-19)
PROC: 3E04305 Introduction of Other Antineoplastic into Central Vein, Percutaneous Approach (ICD-10-PCS; 2016-12-19)
PROC: 3E043GC Introduction of Other Therapeutic Substance into Central Vein, Percutaneous Approach (ICD-10-PCS; 2016-12-19)
PROC: 3E0437Z Introduction of Electrolytic and Water Balance Substance into Central Vein, Percutaneous Approach (ICD-10-PCS; 2016-12-19)
DX: Z51.11 Encounter for antineoplastic chemotherapy (principal); C18.2 Malignant neoplasm of ascending colon; D50.9 Iron deficiency anemia, unspecified; K90.9 Intestinal malabsorption, unspecified; K59.09 Other constipation; Z79.899 Other long term (current) drug therapy
CPT/HCPCS: 96411; 96413; 96415; 96416; 96366; 96367; 96368; 36415; 80053; J0640; J3490 ×2; J9190; J2405; J3480; J7060; J1100; J1453; J9263; 96375; 96409; 96417

== ENCOUNTER 2017-01-02 09:35 | Outpatient (CLI) | payer OTHER ==
[2017-01-02 10:10] LABS: ABSOLUTE BASOPHILS # (AUTO) 0.1 10^3/uL (0.0-0.2); ABSOLUTE EOSINOPHILS # (AUTO) 0.6 10^3/uL (0.0-0.6); ABSOLUTE LYMPHOCYTES (AUTO) 2.4 10^3/uL (0.5-4.7); ABSOLUTE MONOCYTES (AUTO) 0.6 10^3/uL (0.1-1.4); ABSOLUTE NEUT (AUTO) 3.3 10^3/uL (1.7-8.2); BASOPHILS % (AUTO) 1.1 % (0-2); EOSINOPHILS % (AUTO) 8.2 % (0-6); HEMATOCRIT 37.1 % (36.0-47.0); HEMOGLOBIN 12.7 g/dL (12.0-15.5); LYMPHOCYTES % (AUTO) 34.9 % (13-45); MEAN CORPUSCULAR HEMOGLOBIN 33.3 pg (27.0-33.4); MEAN CORPUSCULAR HGB CONC 34.3 g/dL (32.0-36.0); MEAN CORPUSCULAR VOLUME 97 fl (80-97); MONOCYTES % (AUTO) 9.2 % (3-13); RED BLOOD COUNT 3.82 10^6/uL (3.72-5.28); RED CELL DISTRIBUTION WIDTH 16.2 % (11.5-14.0); SEGMENTED NEUTROPHILS % (AUTO) 46.6 % (42-78)
[2017-01-02 10:15] VITALS: BP 111/83
[2017-01-02 10:36] LABS: ALANINE AMINOTRANSFERASE 31 U/L (9-52); ALBUMIN 3.3 g/dL (3.5-5.0); ALKALINE PHOSPHATASE 160 U/L (38-126); ANION GAP 10 (5-19); ASPARTATE AMINO TRANSFERASE 42 U/L (14-36); BILIRUBIN,DIRECT 0.3 mg/dL (0.0-0.4); BILIRUBIN,TOTAL 0.3 mg/dL (0.2-1.3); BLOOD UREA NITROGEN 10 mg/dL (7-20); CALCIUM 9.2 mg/dL (8.4-10.2); CARBON DIOXIDE 27 mmol/L (22-30); CHLORIDE 103 mmol/L (98-107); CREATININE RESULT 0.68 mg/dL (0.52-1.25); GLUCOSE 96 mg/dL (75-110); POTASSIUM 3.3 mmol/L (3.6-5.0); SODIUM 139.7 mmol/L (137-145); TOTAL PROTEIN 6.4 g/dL (6.3-8.2)
== END 2017-01-02 14:30 | disposition home or self-care (01) ==
LOC: II 09:35 → 5TH 09:39 → II 14:30
PROVIDERS: ATTEND Internal Medicine
PROC: 3E04305 Introduction of Other Antineoplastic into Central Vein, Percutaneous Approach (ICD-10-PCS; principal; 2017-01-02)
PROC: 3E043GC Introduction of Other Therapeutic Substance into Central Vein, Percutaneous Approach (ICD-10-PCS; 2017-01-02)
DX: Z51.11 Encounter for antineoplastic chemotherapy (principal); C18.2 Malignant neoplasm of ascending colon
CPT/HCPCS: 96409; 96413; 96415; 96416; 96367; 96375; 96417; 36415; 85025; 80053; J0640; J3490 ×2; J9190; J2405; J7060; J1100; J1453; J9263; 96368; 96411

== ENCOUNTER 2017-01-23 08:18 | Outpatient (CLI) | payer OTHER ==
[~2017-01-23 08:18] MED LIST changes: -NORMAL SALINE 10 ML SDV (AFTER EACH USE) IV PRN
[2017-01-23 09:05] LABS: ABSOLUTE BASOPHILS # (AUTO) 0.1 10^3/uL (0.0-0.2); ABSOLUTE EOSINOPHILS # (AUTO) 0.1 10^3/uL (0.0-0.6); ABSOLUTE LYMPHOCYTES (AUTO) 1.3 10^3/uL (0.5-4.7); ABSOLUTE MONOCYTES (AUTO) 0.6 10^3/uL (0.1-1.4); ABSOLUTE NEUT (AUTO) 7.1 10^3/uL (1.7-8.2); BASOPHILS % (AUTO) 0.6 % (0-2); EOSINOPHILS % (AUTO) 0.7 % (0-6); HEMATOCRIT 41.4 % (36.0-47.0); HGB HCT DIFFERENCE 0.6; MEAN CORPUSCULAR HEMOGLOBIN 32.6 pg (27.0-33.4); MEAN CORPUSCULAR HGB CONC 33.9 g/dL (32.0-36.0); MEAN CORPUSCULAR VOLUME 96 fl (80-97); RED BLOOD COUNT 4.31 10^6/uL (3.72-5.28); SEGMENTED NEUTROPHILS % (AUTO) 77.7 % (42-78); WHITE BLOOD COUNT 9.1 10^3/uL (4.0-10.5)
[2017-01-23 09:14] VITALS: BP 138/93
[2017-01-23 09:22] LABS: ALANINE AMINOTRANSFERASE 33 U/L (9-52); ALBUMIN 3.7 g/dL (3.5-5.0); ALKALINE PHOSPHATASE 186 U/L (38-126); ANION GAP 11 (5-19); ASPARTATE AMINO TRANSFERASE 29 U/L (14-36); BILIRUBIN,DIRECT 0.4 mg/dL (0.0-0.4); BILIRUBIN,TOTAL 0.4 mg/dL (0.2-1.3); BLOOD UREA NITROGEN 6 mg/dL (7-20); CALCIUM 9.9 mg/dL (8.4-10.2); CARBON DIOXIDE 32 mmol/L (22-30); CHLORIDE 105 mmol/L (98-107); CREATININE RESULT 0.57 mg/dL (0.52-1.25); GLUCOSE 95 mg/dL (75-110); POTASSIUM 3.2 mmol/L (3.6-5.0); SODIUM 148.1 mmol/L (137-145); TOTAL PROTEIN 7.3 g/dL (6.3-8.2)
[2017-01-23] MEDS ORDERED: MORPHINE SULFATE 10 MG/ML INJ IV ONE (10:00)
[2017-01-23] MEDS ORDERED: MORPHINE SULFATE 10 MG/ML INJ IV SCH (10:00)
[2017-01-23] MEDS ORDERED: POTASSIUM CHLORIDE 20 MEQ/50 ML RTU IV SCH (10:45)
== END 2017-01-23 14:21 | disposition home or self-care (01) ==
LOC: II 08:18 → 5TH 08:21 → II 14:21
PROVIDERS: ATTEND Internal Medicine
PROC: 3E04305 Introduction of Other Antineoplastic into Central Vein, Percutaneous Approach (ICD-10-PCS; principal; 2017-01-23)
PROC: 3E043GC Introduction of Other Therapeutic Substance into Central Vein, Percutaneous Approach (ICD-10-PCS; 2017-01-23)
DX: Z51.11 Encounter for antineoplastic chemotherapy (principal); C18.2 Malignant neoplasm of ascending colon
CPT/HCPCS: 36415; 85025; 80053; 96411; 96413; 96415; 96416; 96367; 96368; J0640; J3490 ×2; J9190; J2270; J2405; J7060; J1100; J1453; J9263; 96409; 96417; 96523

== ENCOUNTER → 2017-01-29 | Outpatient (CLI) | payer OTHER ==
--- NOTE | 2017-01-29 10:47 | RADIOLOGY REPORT (SQ) ---
EXAM DESCRIPTION: CT CHEST WITH COMPLETED DATE/TIME: 01/29/2017 9:37 am REASON FOR STUDY: MALIGNANT NEOPLASM OF ASCENDING COLON C18.2 MALIGNANT NEOPLASM OF ASCENDING COLON COMPARISON: 07/27/2016 TECHNIQUE: CT scan of the chest performed using helical scanning technique with dynamic intravenous contrast injection. Images reviewed with lung, soft tissue and bone windows. Reconstructed coronal and sagittal MPR images reviewed. All images stored on PACS. All CT scanners at this facility use dose modulation, iterative reconstruction, and/or weight based d osing when appropriate to reduce radiation dose to as low as reasonably achievable (ALARA). [facility]: Dose Right [facility]: CareDose [facility]: Dose Right [facility]: Teradose 4D [facility]: [employer] CONTRAST TYPE AND DOSE: See separate report of the same date. RENAL FUNCTION: See separate report of the same day. RADIATION DOSE: . LIMITATIONS: Motion. 3 mm left upper lobe nodule image 47 has been stable since 2010. No suspiciou s nodules. No effusions. FINDINGS: LUNGS AND PLEURA: No opacities, nodules, masses. No pneumothorax. No effusions. HILAR AND MEDIASTINAL STRUCTURES: No identified masses or abnormal nodes. HEART AND VASCULAR STRUCTURES: No aneurysm or dissection. No central pulmonary emboli. No pericardi al effusion. HARDWARE: None in the chest. UPPER ABDOMEN: See separate report of the CT of the abdomen. THYROID AND OTHER SOFT TISSUES: No masses. No adenopathy. BONES: No significant finding. OTHER: Right-sided port with tip in the cavoatrial junction. IMPRESSION: No evidence of metastatic disease. TECHNICAL DOCUMENTATION: JOB ID: [id number] Quality ID # [id number]: Final reports with documentation of one or more dose reduction techniques (e.g., Au tomated exposure control, adjustment of the mA and/or kV according to patient size, use of iterative reconstruction technique) 2010 [employer]- All Rights Reserved
--- NOTE | 2017-01-29 14:41 | RADIOLOGY REPORT (SQ) ---
EXAM DESCRIPTION: CT ABD/PELVIS WITH IV ORAL COMPLETED DATE/TIME: 01/29/2017 9:38 am REASON FOR STUDY: MALIGNANT NEOPLASM OF ASCENDING COLON C18.2 MALIGNANT NEOPLASM OF ASCENDING COLON COMPARISON: 07/27/2016 TECHNIQUE: CT scan of the abdomen and pelvis performed using helical scanning technique with dynamic intravenous contrast injection. No oral contrast. Images reviewed with lung, soft tissue, and bone windows. Reconstructed coronal and sagittal MPR images reviewed. Delayed images for evaluation of the urinary system also acquired. All images stored on PACS. All CT scanners at this facility use dose modulation, iterative reconstruction, and/or weight based d osing when appropriate to reduce radiation dose to as low as reasonably achievable (ALARA). [facility]: Dose Right [facility]: CareDose [facility]: Dose Right [facility]: Teradose 4D [facility]: [employer] CONTRAST TYPE AND DOSE: contrast/concentration: Isovue 370.00 mg/ml; Total Contrast Delivered: 100.0 ml; Total Saline Delivered: 72.0 ml RENAL FUNCTION: BUN 6 creatinine 0.6 RADIATION DOSE: Up-to-date CT equipment and radiation dose reduction techniques were employed. CTDIv ol: 6.8 - 13.7 mGy. DLP: 1634 mGy-cm.. LIMITATIONS: None. FINDINGS: LOWER CHEST: 1.4 cm epiphrenic lymph node, unchanged. Also see separate report of same da te. LIVER: 1 cm lesion subdiaphragmatic measuring 36 HU. SPLEEN: Normal size. No focal lesions. PANCREAS: No masses. No significant calcifications. No adjacent inflammation or peripancreatic fluid collections. Pancreatic duct not dilated. GALLBLADDER: Surgically absent. ADRENAL GLANDS: No significant masses or asymmetry. RIGHT KIDNEY AND URETER: No solid masses. No significant calcifications. No hydronephrosis or hyd roureter. LEFT KIDNEY AND URETER: No solid masses. No significant calcifications. No hydronephrosis or hydr oureter. AORTA AND VESSELS: No aneurysm. No dissection. Renal arteries, SMA, celiac without stenosis. RETROPERITONEUM: No retroperitoneal adenopathy, hemorrhage or masses. BOWEL AND PERITONEAL CAVITY: Status post right hemicolectomy. There is residual inflammation in the mesentery. Regional adenopathy has increased, with the largest node about 1.8 x 1.1 cm near the hepa tic flexure. Central mesenteric node measuring about 1.0 cm near the midline image 56, not seen on t he prior. APPENDIX: Surgically absent. PELVIS: No mass. No free fluid. Normal bladder. ABDOMINAL WALL: No significant hernia. BONES: No acute findings. OTHER: No other significant finding. IMPRESSION: Increasing regional adenopathy status post right hemicolectomy. New small liver lesion. TECHNICAL DOCUMENTATION: JOB ID: [id number] Quality ID # [id number]: Final reports with documentation of one or more dose reduction techniques (e.g., Au tomated exposure control, adjustment of the mA and/or kV according to patient size, use of iterative reconstruction technique) 2010 [employer]- All Rights Reserved
== END ==
LOC: RAD 08:51
PROVIDERS: ATTEND Internal Medicine
DX: C18.2 Malignant neoplasm of ascending colon (principal)
CPT/HCPCS: 71260; 74177

== ENCOUNTER → 2017-02-11 | Outpatient (CLI) | payer OTHER ==
--- NOTE | 2017-02-12 09:12 | RADIOLOGY REPORT (SQ) ---
EXAM DESCRIPTION: PET CT SKULL/THIGH COMPLETED DATE/TIME: 02/11/2017 6:38 pm REASON FOR STUDY: ASCENDING COLON CANCER C18.2 MALIGNANT NEOPLASM OF ASCENDING COLON COMPARISON: None. RADIONUCLIDE AND DOSE: 12.0 mCi F18 FDG The route of agent administration: Intravenous FASTING BLOOD SUGAR: 101 mg/dl CONTRAST TYPE AND DOSE: No CT contrast given. TECHNIQUE: Blood glucose level was verified. Above dose of FDG was injected intravenously. 2-D seg mented attenuation correction images were obtained from the base of the skull to the midthighs. Nonc ontrast CT images were obtained for attenuation correction and fusion with emission images. CT image s were performed without oral or intravenous contrast and are not sensitive for parenchymal lesions. A series of overlapping emission PET images were obtained. Images reviewed and manipulated at [facility] [employer] work station by the radiologist. Images stored on PACS. LIMITATIONS: None. FINDINGS: HEAD AND NECK: No areas of abnormal metabolic activity in the soft tissues of the head and neck. CHEST: No areas of abnormal metabolic activity in the chest. ABDOMEN AND PELVIS: There is increased uptake measuring about 11 SUV in the surgical bed in the right lower quadrant and similar uptake within recently described regional lymph nodes. See CT 01/29/2017 . No distant hypermetabolic activity. PROXIMAL LOWER EXTREMITIES: No areas of abnormal metabolic activity in the soft tissues of the lower extremities. BONES: No abnormal metabolic activity in the visualized skeleton. ADDITIONAL CT FINDINGS: See recent CT 01/29/2017. OTHER: No other significant findings. IMPRESSION: Increased uptake in the surgical bed and within regional lymphadenopathy. No abnormal u ptake in the liver. TECHNICAL DOCUMENTATION: JOB ID: [id number] [employer]- All Rights Reserved
== END ==
LOC: RAD 15:04
PROVIDERS: ATTEND Internal Medicine
DX: C18.2 Malignant neoplasm of ascending colon (principal)
CPT/HCPCS: 78815; A9552

== ENCOUNTER 2017-02-16 09:07 | Outpatient (CLI) | payer OTHER ==
[2017-02-16 09:27] VITALS: BP 133/84
[2017-02-16] MEDS ORDERED: NORMAL SALINE 1000 ML 1,000 ML IV PRN (09:41)
== END 2017-02-16 11:27 | disposition home or self-care (01) ==
LOC: II 09:07 → 5 09:12 → II 11:27
PROVIDERS: ATTEND Internal Medicine
PROC: 3E0437Z Introduction of Electrolytic and Water Balance Substance into Central Vein, Percutaneous Approach (ICD-10-PCS; principal; 2017-02-16)
DX: E86.0 Dehydration (principal)
CPT/HCPCS: 96360; J7030; 96375

== ENCOUNTER 2017-03-06 10:09 | Inpatient (IN) | payer OTHER ==
[2017-03-06] MEDS ORDERED: ONDANSETRON HCL INJ/PF 4 MG/2 ML SDV IV PRN (10:45)
[2017-03-06] MEDS ORDERED: ONDANSETRON 4 MG TAB.RAPDIS PO PRN (10:45)
[2017-03-06] MEDS ORDERED: ACETAMINOPHEN 325 MG TABLET PO PRN (10:45)
[2017-03-06] MEDS ORDERED: MORPHINE SULFATE 10 MG/ML INJ IV PRN (11:36)
[2017-03-06] MEDS: NORMAL SALINE 1000 ML 1,000 ML IV PRN (12:08)
[2017-03-06 12:10] LABS: HEMATOCRIT 42.8 % (36.0-47.0); HEMOGLOBIN 14.6 g/dL (12.0-15.5); MEAN CORPUSCULAR HGB CONC 34.1 g/dL (32.0-36.0); MEAN CORPUSCULAR VOLUME 91 fl (80-97); RED BLOOD COUNT 4.72 10^6/uL (3.72-5.28); RED CELL DISTRIBUTION WIDTH 15.8 % (11.5-14.0); WHITE BLOOD COUNT 4.9 10^3/uL (4.0-10.5)
[2017-03-06 12:38] LABS: ANION GAP 12 (5-19); BLOOD UREA NITROGEN 11 mg/dL (7-20); CALCIUM 8.8 mg/dL (8.4-10.2); CARBON DIOXIDE 39 mmol/L (22-30); CHLORIDE 87 mmol/L (98-107); CREATININE RESULT 0.68 mg/dL (0.52-1.25); GLUCOSE 89 mg/dL (75-110); SODIUM 137.5 mmol/L (137-145)
[2017-03-06 12:41] LABS: POTASSIUM 2.8 mmol/L (3.6-5.0)
--- NOTE | 2017-03-06 13:14 | PDOC H&P ---
History of Present Illness Admission Date/PCP: 03/06/17 10:09 ANGELES GARCIA MD Patient complains of: Abdominal pain History of Present Illness: DON KING is a 36 year old female who has metastatic colon cancer who presented to her oncologist office today with complaints of abdominal pain and decreased p.o. intake. She reports that she has had symptoms off and on for the last month and over the last several months has lost 80 pounds. She denies any fevers or chills. She reports that she has been passing gas and stool. She denies any melena or bright red blood per rectum. Patient reports that she had her last chemotherapy about 2 weeks ago. Patient reports that her pain is in the mid abdominal area and is a sharp stabbing pain. It is intermittent is unrelated to eating. She denies any radiation of the pain. She denies any dysuria. She denies any back pain. Denies any night sweats. Past Medical History Cardiac Medical History: Reports: Hypertension Denies: Coronary Artery Disease, Myocardial Infarction Pulmonary Medical History: Reports: Asthma, Bronchitis Denies: Chronic Obstructive Pulmonary Disease (COPD), Pneumonia, Tuberculosis EENT Medical History: Reports: None Neurological Medical History: Reports: None Endocrine Medical History: Reports: None Renal/ Medical History: Reports: None Malignancy Medical History: Reports: Colorectal Cancer GI Medical History: Reports: Gastroesophageal Reflux Disease Musculoskeltal Medical History: Denies: Arthritis Skin Medical History: Reports: None Psychiatric Medical History: Reports: Bipolar Disorder, Depression Traumatic Medical History: Reports: None Hematology: Reports: Anemia Past Surgical History Past Surgical History: Reports: Cholecystectomy, Hysterectomy, Orthopedic Surgery - Right Femur fx with heaven placement, Other - Laparoscopic colectomy Social History Information Source: Patient Lives with: Spouse/Significant other Smoking Status: Current Every Day Smoker Frequency of Alcohol Use: None Hx Recreational Drug Use: No Drugs: None Hx Prescription Drug Abuse: No - Advance Directive Resuscitation Status: Full Code Family History Family History: DM, Hypertension, Other Family History: Mother is 60 alive and has diabetes and dementia as well as hypertension. Father's health history is unknown. Parental Family History Reviewed: Yes Children Family History Reviewed: No Sibling(s) Family History Reviewed.: No Medication/Allergy Home Medications: Baclofen [Baclofen 10 mg Tablet] 10 mg PO BIDP PRN 03/06/17 Lisinopril/Hydrochlorothiazide [Zestoretic 20-12.5 mg Tablet] 1 tab PO DAILY Ondansetron HCl [Zofran 8 mg Tablet] 8 mg PO Q8HP PRN 03/06/17 Oxycodone HCl 40 mg PO Q6HP PRN 03/06/17 Allergies/Adverse Reactions: risperidone [From Risperdal] Allergy (Unknown, Verified 07/09/16 11:21) tramadol [Tramadol] Adverse Reaction (Intermediate, Verified 07/09/16 11:21) Nausea ibuprofen [Ibuprofen] Adverse Reaction (Mild, Verified 07/09/16 11:21) Nausea Review of Systems Constitutional: ABSENT: chills, fever(s), headache(s), weight gain, weight loss Eyes: ABSENT: visual disturbances Ears: ABSENT: hearing changes Cardiovascular: ABSENT: chest pain, dyspnea on exertion, edema, orthropnea, palpitations Respiratory: ABSENT: cough, hemoptysis Gastrointestinal: PRESENT: as per HPI, abdominal pain, constipation, nausea, vomiting. ABSENT: diarrhea, dysphagia, heartburn, hematemesis, hematochezia, melena Genitourinary: ABSENT: dysuria, hematuria Musculoskeletal: ABSENT: joint swelling Integumentary: ABSENT: rash, wounds Neurological: ABSENT: abnormal gait, abnormal speech, confusion, dizziness, focal weakness, syncope Psychiatric: ABSENT: anxiety, depression, homidical ideation, suicidal ideation Endocrine: ABSENT: cold intolerance, heat intolerance, polydipsia, polyuria Hematologic/Lymphatic: ABSENT: easy bleeding, easy bruising Physical Exam Vital Signs: Intake & Output 03/05/17 03/06/17 03/07/17 06:59 06:59 06:59 Weight 94.8 kg General appearance: PRESENT: no acute distress, well-developed, well-nourished Head exam: PRESENT: atraumatic, normocephalic Eye exam: PRESENT: conjunctiva pink, EOMI, PERRLA. ABSENT: scleral icterus Ear exam: PRESENT: normal external ear exam Mouth exam: PRESENT: moist, tongue midline Neck exam: ABSENT: carotid bruit, JVD, lymphadenopathy, thyromegaly Respiratory exam: PRESENT: clear to auscultation colt. ABSENT: rales, rhonchi, wheezes Cardiovascular exam: PRESENT: RRR. ABSENT: diastolic murmur, rubs, systolic murmur GI/Abdominal exam: PRESENT: normal bowel sounds, soft, tenderness - Epigastric tenderness.. ABSENT: distended, guarding, mass, organolmegaly, rebound Extremities exam: ABSENT: calf tenderness, clubbing, pedal edema Neurological exam: PRESENT: alert, awake, oriented to person, oriented to place , oriented to time, oriented to situation, CN II-XII grossly intact. ABSENT: motor sensory deficit Psychiatric exam: PRESENT: appropriate affect Skin exam: PRESENT: dry, intact, warm. ABSENT: cyanosis, rash Results Laboratory Results: 03/06/17 11:45 03/06/17 12:02 03/06/17 03/06/17 11:45 12:02 WBC 4.9 RBC 4.72 Hgb 14.6 Hct 42.8 MCV 91 MCH 31.0 MCHC 34.1 RDW 15.8 H Plt Count 397 Sodium 137.5 Potassium 2.8 L* Chloride 87 L Carbon Dioxide 39 H Anion Gap 12 BUN 11 Creatinine 0.68 Est GFR ( Amer) > 60 Est GFR (Non-Af Amer) > 60 Glucose 89 Calcium 8.8 Assessment & Plan - Diagnosis (1) Dehydration Is this a current diagnosis for this admission?: Yes Plan: Patient has had decreased p.o. intake because of her colon cancer and chemotherapy. Will give IV fluids. (2) Hypokalemia Is this a current diagnosis for this admission?: Yes Plan: We will give IV replacement and continue to monitor. (3) Anemia Is this a current diagnosis for this admission?: No Plan: Patient has a history of anemia but her hemoglobin is normal today. (4) Colon cancer Qualifiers: Is this a current diagnosis for this admission?: Yes Plan: The patient has been getting chemotherapy. Her last chemo was about 2 weeks ago. - Time Time Spent: 50 to 70 Minutes - Plan Summary Plan Summary: Patient will be admitted as an observation. If she improves we can hopefully discharge home tomorrow. If not we will continue with IV fluids and change her to a regular inpatient.
[2017-03-06] MEDS: HYDROMORPHONE HCL INJ/PF 2 MG/ML AMPULE IV PRN ×5 (14:05→23:30)
[2017-03-06] MEDS: POTASSI CL 20 MEQ/50 ML RIDER 20 MEQ/50 ML RTUPB IV SCH ×2 (14:06→16:20)
[2017-03-06] MEDS: FAMOTIDINE 20 MG TABLET PO SCH (21:21)
[2017-03-07] MEDS: HYDROMORPHONE HCL INJ/PF 2 MG/ML AMPULE IV PRN ×8 (02:54→22:21)
[2017-03-07 07:21] LABS: HEMATOCRIT 37.3 % (36.0-47.0); HEMOGLOBIN 12.7 g/dL (12.0-15.5); HGB HCT DIFFERENCE 0.8; MEAN CORPUSCULAR HEMOGLOBIN 30.8 pg (27.0-33.4); MEAN CORPUSCULAR HGB CONC 33.9 g/dL (32.0-36.0); MEAN CORPUSCULAR VOLUME 91 fl (80-97); RED BLOOD COUNT 4.11 10^6/uL (3.72-5.28); WHITE BLOOD COUNT 5.4 10^3/uL (4.0-10.5)
[2017-03-07 07:40] LABS: ANION GAP 11 (5-19); BLOOD UREA NITROGEN 8 mg/dL (7-20); CALCIUM 8.3 mg/dL (8.4-10.2); CARBON DIOXIDE 30 mmol/L (22-30); CHLORIDE 94 mmol/L (98-107); CREATININE RESULT 0.59 mg/dL (0.52-1.25); GLUCOSE 85 mg/dL (75-110); SODIUM 135.4 mmol/L (137-145)
[2017-03-07 07:47] LABS: POTASSIUM 2.7 mmol/L (3.6-5.0)
--- NOTE | 2017-03-07 08:28 | PDOC CONSULTATION ---
Consultation Consult Date: 03/07/17 Attending physician:: HAL FONG Consult reason:: N/V, severe abd pain, dehydration, hypotension, stage IV colon ca History of Present Illness Admission Date/PCP: 03/06/17 10:09 ANGELES GARCIA MD Patient complains of: N/V, severe abd pain History of Present Illness: 36-year-old female well-known to our oncology clinic with stage IV colon cancer , she was originally diagnosed about 9 months ago, at that time she presented with perforated colon, was found at surgical resection to have a stage III colon cancer, she had surgery and then did have some postop complications with infections, ultimately postop imaging indicated no evidence of disease, we then got to adjuvant chemotherapy with FOLFOX for 6 months, that was completed now about 6 weeks ago, restaging imaging unfortunately indicated progression of disease with multiple mesenteric implants, and so she has been on first-line metastatic therapy with FOLFIRI + AVASTIN, she received a cycle of that about 2 weeks ago, that was her first cycle, she had fairly severe diarrhea and abdominal cramping thereafter, she came to her office yesterday for cycle #2, she was hypotensive with the blood pressure 90/40 and tachycardic, she was in severe abdominal pain as well as quite dehydrated, she was admitted for hydration, nausea and vomiting control as well as abdominal pain control. She is doing better now but still requiring Dilaudid 2 mg every 2 hours and still having quite a bit of breakthrough pain, we are planning on increasing the Dilaudid today as well as adding long-acting. Prior to coming in she was taking oxycodone 20 mg every 4 hours [id number]. Past Medical History Cardiac Medical History: Reports: Hypertension Denies: Coronary Artery Disease, Myocardial Infarction Pulmonary Medical History: Reports: Asthma, Bronchitis Denies: Chronic Obstructive Pulmonary Disease (COPD), Pneumonia, Tuberculosis EENT Medical History: Reports: None Neurological Medical History: Reports: None Endocrine Medical History: Reports: None Renal/ Medical History: Reports: None Malignancy Medical History: Reports: Colorectal Cancer GI Medical History: Reports: Gastroesophageal Reflux Disease Musculoskeltal Medical History: Denies: Arthritis Skin Medical History: Reports: None Psychiatric Medical History: Reports: Bipolar Disorder, Depression Traumatic Medical History: Reports: None Hematology: Reports: Anemia Past Surgical History Past Surgical History: Reports: Cholecystectomy, Hysterectomy, Orthopedic Surgery - Right Femur fx with heaven placement, Other - Laparoscopic colectomy Social History Lives with: Spouse/Significant other Smoking Status: Current Every Day Smoker Frequency of Alcohol Use: None Hx Recreational Drug Use: No Drugs: None Hx Prescription Drug Abuse: No - Advance Directive Resuscitation Status: Full Code Family History Family History: DM, Hypertension, Other Parental Family History Reviewed: Yes Children Family History Reviewed: Yes Sibling(s) Family History Reviewed.: Yes Medication/Allergy Home Medications: Baclofen [Baclofen 10 mg Tablet] 10 mg PO BIDP PRN 03/06/17 Lisinopril/Hydrochlorothiazide [Zestoretic 20-12.5 mg Tablet] 1 tab PO DAILY Ondansetron HCl [Zofran 8 mg Tablet] 8 mg PO Q8HP PRN 03/06/17 Oxycodone HCl 40 mg PO Q6HP PRN 03/06/17 Allergies/Adverse Reactions: risperidone [From Risperdal] Allergy (Unknown, Verified 07/09/16 11:21) tramadol [Tramadol] Adverse Reaction (Intermediate, Verified 07/09/16 11:21) Nausea ibuprofen [Ibuprofen] Adverse Reaction (Mild, Verified 07/09/16 11:21) Nausea Review of Systems Constitutional: PRESENT: anorexia, fatigue, weakness Cardiovascular: ABSENT: chest pain, dyspnea on exertion, edema, orthropnea, palpitations Gastrointestinal: PRESENT: abdominal pain, constipation, diarrhea, nausea, vomiting Integumentary: PRESENT: diaphoresis Neurological: ABSENT: abnormal gait, abnormal speech, confusion, dizziness, focal weakness, syncope Physical Exam Vital Signs: Temp Pulse Resp BP Pulse Ox 97.9 F 121 H 16 126/88 H 93 03/06/17 22:00 03/06/17 22:00 03/06/17 22:00 03/06/17 22:00 03/06/17 22:00 Intake & Output 03/06/17 03/07/17 03/08/17 06:59 06:59 06:59 Intake Total 240 Output Total 300 Balance -60 Weight 94.8 kg General appearance: PRESENT: no acute distress, well-developed, well-nourished Head exam: PRESENT: atraumatic, normocephalic Eye exam: PRESENT: conjunctiva pink, EOMI, PERRLA. ABSENT: scleral icterus Ear exam: PRESENT: normal external ear exam Mouth exam: PRESENT: moist, tongue midline Neck exam: ABSENT: carotid bruit, JVD, lymphadenopathy, thyromegaly Respiratory exam: PRESENT: clear to auscultation colt. ABSENT: rales, rhonchi, wheezes Cardiovascular exam: PRESENT: RRR. ABSENT: diastolic murmur, rubs, systolic murmur Pulses: PRESENT: normal dorsalis pedis pul Vascular exam: PRESENT: normal capillary refill GI/Abdominal exam: PRESENT: normal bowel sounds, soft. ABSENT: distended, guarding, mass, organolmegaly, rebound, tenderness Rectal exam: PRESENT: deferred Extremities exam: PRESENT: full ROM. ABSENT: calf tenderness, clubbing, pedal edema Neurological exam: PRESENT: alert, awake, oriented to person, oriented to place , oriented to time, oriented to situation, CN II-XII grossly intact. ABSENT: motor sensory deficit Psychiatric exam: PRESENT: appropriate affect, normal mood. ABSENT: homicidal ideation, suicidal ideation Skin exam: PRESENT: dry, intact, warm. ABSENT: cyanosis, rash Results Laboratory Results: 03/07/17 06:52 03/07/17 06:52 03/06/17 03/06/17 03/07/17 11:45 12:02 06:52 WBC 4.9 5.4 RBC 4.72 4.11 Hgb 14.6 12.7 Hct 42.8 37.3 MCV 91 91 MCH 31.0 30.8 MCHC 34.1 33.9 RDW 15.8 H 16.0 H Plt Count 397 429 Sodium 137.5 Potassium 2.8 L* Chloride 87 L Carbon Dioxide 39 H Anion Gap 12 BUN 11 Creatinine 0.68 Est GFR ( Amer) > 60 Est GFR (Non-Af Amer) > 60 Glucose 89 Calcium 8.8 03/07/17 06:52 WBC RBC Hgb Hct MCV MCH MCHC RDW Plt Count Sodium 135.4 L Potassium 2.7 L* Chloride 94 L Carbon Dioxide 30 Anion Gap 11 BUN 8 Creatinine 0.59 Est GFR ( Amer) > 60 Est GFR (Non-Af Amer) > 60 Glucose 85 Calcium 8.3 L Assessment & Plan - Diagnosis (1) Dehydration Is this a current diagnosis for this admission?: Yes Plan: Secondary to nausea and vomiting, continue with aggressive hydration at present. (2) Nausea & vomiting Qualifiers: Vomiting type: cyclical vomiting Vomiting Intractability: intractable Qualified Code(s): G43.A1 - Cyclical vomiting, intractable Is this a current diagnosis for this admission?: Yes Plan: Continuous vomiting because of disease burden as well as chemotherapy-induced, continue with antiemetics and IV hydration. (3) Pain, neoplasm-related Is this a current diagnosis for this admission?: Yes Plan: Severe pain, requiring IV pain medication, increasing Dilaudid today, adding OxyContin, if she is stable tomorrow she does have oxycodone prescription already, I have written for OxyContin 40 mg twice daily, if she is tolerating that well by tomorrow she can go home. However she still requiring continuous IV pain control we may need to adjust that further over the next 24 hours. (4) Colon cancer Qualifiers: Colon location: ascending Is this a current diagnosis for this admission?: Yes Plan: Stage IV colon cancer, further treatment plan as an outpatient, holding on treatment until patient has recovered from this episode - Time Time Spent: Greater than 70 Minutes Critical Time spent with patient: 35 or more minutes - Inpatient Certification Based on my medical assessment, after consideration of the patient's comorbidities, presenting symptoms, or acuity I expect that the services needed warrant INPATIENT care.: Yes I certify that my determination is in accordance with my understanding of Medicare's requirements for reasonable and necessary INPATIENT services [42 CFR 412.3e].: Yes Medical Necessity: Need For IV Fluids, Need for Pain Control
[2017-03-07] MEDS: POTASSI CL 20 MEQ/50 ML RIDER 20 MEQ/50 ML RTUPB IV SCH ×2 (09:03→10:47)
[2017-03-07] MEDS: NORMAL SALINE 1000 ML 1,000 ML IV PRN (09:15)
[2017-03-07] MEDS ORDERED: OXYCODONE HCL SR 40 MG TABLET PO SCH (10:00)
[2017-03-07] MEDS: ENOXAPARIN SODIUM INJ 40 MG/0.4 ML DISP.SYRIN SUBCUT SCH (10:46)
[2017-03-07] MEDS: FAMOTIDINE 20 MG TABLET PO SCH ×2 (11:11→21:03)
--- NOTE | 2017-03-07 13:26 | PDOC PROGRESS REPORT ---
Subjective Progress Note for:: 03/07/17 Subjective:: Patient still has abdominal pain but reports it is improved. Physical Exam Vital Signs: Temp Pulse Resp BP Pulse Ox 97.9 F 121 H 16 126/88 H 93 03/06/17 22:00 03/06/17 22:00 03/06/17 22:00 03/06/17 22:00 03/06/17 22:00 Intake & Output 03/06/17 03/07/17 03/08/17 06:59 06:59 06:59 Intake Total 240 Output Total 300 Balance -60 Weight 94.8 kg General appearance: PRESENT: no acute distress Eye exam: PRESENT: conjunctiva pink. ABSENT: scleral icterus Mouth exam: PRESENT: moist, tongue midline Neck exam: ABSENT: JVD Respiratory exam: PRESENT: clear to auscultation colt. ABSENT: rales, rhonchi, wheezes Cardiovascular exam: PRESENT: RRR. ABSENT: diastolic murmur, rubs, systolic murmur GI/Abdominal exam: PRESENT: normal bowel sounds, soft, tenderness - Epigastric tenderness. ABSENT: distended, guarding, mass, organolmegaly, rebound Extremities exam: ABSENT: calf tenderness, clubbing, pedal edema Neurological exam: PRESENT: alert, awake, oriented to person, oriented to place , oriented to time, oriented to situation, CN II-XII grossly intact. ABSENT: motor sensory deficit Psychiatric exam: PRESENT: appropriate affect Skin exam: PRESENT: dry, intact, warm. ABSENT: cyanosis, rash Results Laboratory Results: 03/07/17 06:52 03/07/17 06:52 03/07/17 03/07/17 06:52 06:52 WBC 5.4 RBC 4.11 Hgb 12.7 Hct 37.3 MCV 91 MCH 30.8 MCHC 33.9 RDW 16.0 H Plt Count 429 Sodium 135.4 L Potassium 2.7 L* Chloride 94 L Carbon Dioxide 30 Anion Gap 11 BUN 8 Creatinine 0.59 Est GFR ( Amer) > 60 Est GFR (Non-Af Amer) > 60 Glucose 85 Calcium 8.3 L Assessment & Plan - Diagnosis (1) Dehydration Is this a current diagnosis for this admission?: Yes Plan: Patient has had decreased p.o. intake because of her colon cancer and chemotherapy. Will continue IV fluids. We will try to advance her diet today if she can tolerate it. (2) Hypokalemia Is this a current diagnosis for this admission?: Yes Plan: We will give IV replacement and continue to monitor. (3) Anemia Is this a current diagnosis for this admission?: No Plan: Patient has a history of anemia (4) Colon cancer Qualifiers: Colon location: ascending Is this a current diagnosis for this admission?: Yes Plan: The patient has been getting chemotherapy. Her last chemo was about 2 weeks ago. - Time Time Spent with patient: 15-24 minutes - Plan Summary Plan Summary: Will change from an observation to an inpatient admission. Patient still not taking in adequate amount of p.o. and needs continued IV fluids.
[2017-03-07] MEDS ORDERED: FENTANYL 50 MCG/HR PATCH.TD72 TD SCH (15:00)
[2017-03-08] MEDS: HYDROMORPHONE HCL INJ/PF 2 MG/ML AMPULE IV PRN ×6 (01:08→12:33)
[2017-03-08 07:08] LABS: ABSOLUTE EOSINOPHILS # (AUTO) 0.1 10^3/uL (0.0-0.6); ABSOLUTE LYMPHOCYTES (AUTO) 2.3 10^3/uL (0.5-4.7); ABSOLUTE MONOCYTES (AUTO) 0.6 10^3/uL (0.1-1.4); ABSOLUTE NEUT (AUTO) 3.1 10^3/uL (1.7-8.2); BASOPHILS % (AUTO) 0.4 % (0-2); EOSINOPHILS % (AUTO) 1.2 % (0-6); HEMATOCRIT 42.9 % (36.0-47.0); HEMOGLOBIN 14.3 g/dL (12.0-15.5); LYMPHOCYTES % (AUTO) 37.8 % (13-45); MEAN CORPUSCULAR HEMOGLOBIN 30.5 pg (27.0-33.4); MEAN CORPUSCULAR HGB CONC 33.4 g/dL (32.0-36.0); MEAN CORPUSCULAR VOLUME 91 fl (80-97); MONOCYTES % (AUTO) 9.2 % (3-13); RED BLOOD COUNT 4.69 10^6/uL (3.72-5.28); RED CELL DISTRIBUTION WIDTH 15.9 % (11.5-14.0); SEGMENTED NEUTROPHILS % (AUTO) 51.4 % (42-78); WHITE BLOOD COUNT 6.1 10^3/uL (4.0-10.5)
[2017-03-08 07:24] LABS: ANION GAP 13 (5-19); BLOOD UREA NITROGEN 6 mg/dL (7-20); CALCIUM 8.4 mg/dL (8.4-10.2); CARBON DIOXIDE 27 mmol/L (22-30); CHLORIDE 99 mmol/L (98-107); CREATININE RESULT 0.57 mg/dL (0.52-1.25); GLUCOSE 89 mg/dL (75-110); SODIUM 138.7 mmol/L (137-145)
[2017-03-08 07:38] LABS: POTASSIUM 2.9 mmol/L (3.6-5.0)
[2017-03-08] MEDS: POTASSI CL 20 MEQ/50 ML RIDER 20 MEQ/50 ML RTUPB IV SCH ×3 (09:09→12:18)
[2017-03-08] MEDS ORDERED: SPIRONOLACTONE 25 MG TABLET PO SCH (10:00)
[2017-03-08] MEDS: ENOXAPARIN SODIUM INJ 40 MG/0.4 ML DISP.SYRIN SUBCUT SCH (10:23)
[2017-03-08] MEDS: FAMOTIDINE 20 MG TABLET PO SCH (10:23)
--- NOTE | 2017-03-08 11:22 | PDOC DISCHARGE SUMMARY ---
General - Admit/Disc Date/PCP Admission Date/Primary Care Provider: 03/07/17 13:23 ANGELES GARCIA MD Discharge Date: 03/08/17 - Discharge Diagnosis (1) Dehydration Is this a current diagnosis for this admission?: Yes (2) Hypokalemia Is this a current diagnosis for this admission?: Yes Summary: Patient is being changed from lisinopril/hydrochlorothiazide to Spironolactone. (3) Anemia Is this a current diagnosis for this admission?: No (4) Colon cancer Is this a current diagnosis for this admission?: Yes - Additional Information Resuscitation Status: Full Code Discharge Diet: Regular Discharge Activity: Activity As Tolerated Home Medications: Baclofen [Baclofen 10 mg Tablet] 10 mg PO BIDP PRN 03/06/17 Ondansetron HCl [Zofran 8 mg Tablet] 8 mg PO Q8HP PRN 03/06/17 Oxycodone HCl 40 mg PO Q6HP PRN 03/06/17 Fentanyl [Duragesic 50 Mcg/Hr Transdermal Patch] 1 each TD Q3D@1500 patch.[id number] 03/08/17 Spironolactone [Aldactone 25 mg Tablet] 25 mg PO DAILY #30 tablet 03/08/17 History of Present Illness History of Present Illness: DON KING is a 36 year old female who has metastatic colon cancer who presented to her oncologist office today with complaints of abdominal pain and decreased p.o. intake. She reports that she has had symptoms off and on for the last month and over the last several months has lost 80 pounds. She denies any fevers or chills. She reports that she has been passing gas and stool. She denies any melena or bright red blood per rectum. Patient reports that she had her last chemotherapy about 2 weeks ago. Patient reports that her pain is in the mid abdominal area and is a sharp stabbing pain. It is intermittent is unrelated to eating. She denies any radiation of the pain. She denies any dysuria. She denies any back pain. Denies any night sweats. Hospital Course Hospital Course: 36-year-old female who presented with dehydration with nausea vomiting. Patient had chemotherapy 2 weeks prior to presentation. She was admitted to the hospital and given IV fluids and had improvement in her nausea and vomiting. On the day of discharge her nausea and vomiting has resolved. The patient also was noted to be hypokalemic and has received IV potassium. She had been taking diuretics for her blood pressure prior to presentation. Because of the hypokalemia continued in spite of stopping the HCTZ and replacement the decision was made to change her to Spironolactone. The patient is discharged home with follow-up with her oncologist next week. Physical Exam Vital Signs: Temp Pulse Resp BP Pulse Ox 98.4 F 112 H 18 143/98 H 96 03/08/17 07:30 03/08/17 07:30 03/08/17 07:30 03/08/17 07:30 03/08/17 07:30 Intake & Output 03/07/17 03/08/17 03/09/17 06:59 06:59 06:59 Intake Total 240 1382 Output Total 300 2 Balance -60 1380 Weight 94.8 kg 94.9 kg General appearance: PRESENT: no acute distress Eye exam: PRESENT: conjunctiva pink. ABSENT: scleral icterus Ear exam: PRESENT: normal external ear exam Neck exam: ABSENT: JVD Respiratory exam: PRESENT: clear to auscultation colt. ABSENT: rales, rhonchi, wheezes Cardiovascular exam: PRESENT: RRR. ABSENT: diastolic murmur, rubs, systolic murmur GI/Abdominal exam: PRESENT: normal bowel sounds, soft. ABSENT: distended, guarding, mass, organolmegaly, rebound, tenderness Extremities exam: ABSENT: calf tenderness, clubbing, pedal edema Neurological exam: PRESENT: alert, awake, oriented to person, oriented to place , oriented to time, oriented to situation, CN II-XII grossly intact. ABSENT: motor sensory deficit Psychiatric exam: PRESENT: appropriate affect Skin exam: PRESENT: dry, intact, warm. ABSENT: cyanosis, rash Results Laboratory Results: 03/08/17 06:55 03/08/17 06:55 03/08/17 03/08/17 06:55 06:55 WBC 6.1 RBC 4.69 Hgb 14.3 Hct 42.9 MCV 91 MCH 30.5 MCHC 33.4 RDW 15.9 H Plt Count 475 H Seg Neutrophils % 51.4 Lymphocytes % 37.8 Monocytes % 9.2 Eosinophils % 1.2 Basophils % 0.4 Absolute Neutrophils 3.1 Absolute Lymphocytes 2.3 Absolute Monocytes 0.6 Absolute Eosinophils 0.1 Absolute Basophils 0.0 Sodium 138.7 Potassium 2.9 L* Chloride 99 Carbon Dioxide 27 Anion Gap 13 BUN 6 L Creatinine 0.57 Est GFR ( Amer) > 60 Est GFR (Non-Af Amer) > 60 Glucose 89 Calcium 8.4 Qualifiers PATEINT BEING DISCHARGED WITH ANY OF THE FOLLOWING DIAGNOSIS?: No Plan Discharge Plan: Patient is discharged home in stable condition. Follow-up with oncology in 1 week. Time Spent: Greater than 30 Minutes
[2017-03-08 11:53] VITALS: BP 144/92
== END 2017-03-08 13:00 | disposition home or self-care (01) | DRG 641 ==
LOC: 4S 10:09 → OBSVTOIN 03-07 13:23
PROVIDERS: ADMIT Internal Medicine; ATTEND Internal Medicine
DX: E86.0 Dehydration (principal); C18.2 Malignant neoplasm of ascending colon; E87.6 Hypokalemia; T45.1X5A Adverse effect of antineoplastic and immunosuppressive drugs, initial encounter; G43.A0 Cyclical vomiting, in migraine, not intractable; I10 Essential (primary) hypertension; G89.3 Neoplasm related pain (acute) (chronic); D64.9 Anemia, unspecified; F17.200 Nicotine dependence, unspecified, uncomplicated; K21.9 Gastro-esophageal reflux disease without esophagitis; Z90.49 Acquired absence of other specified parts of digestive tract; Z90.710 Acquired absence of both cervix and uterus; Z79.899 Other long term (current) drug therapy; Z83.3 Family history of diabetes mellitus; Z82.49 Family history of ischemic heart disease and other diseases of the circulatory system; Z88.8 Allergy status to other drugs, medicaments and biological substances; Z88.6 Allergy status to analgesic agent; Z85.038 Personal history of other malignant neoplasm of large intestine
CPT/HCPCS: 36415; 80048; 85025; 85027; G0378; G0379; J1170; J1650; J2270; J2405; J3480; J3490; J7030

== ENCOUNTER 2017-03-09 15:51 | Inpatient (IN) | payer OTHER ==
[2017-03-09] MEDS ORDERED: HYDROMORPHONE HCL INJ/PF 2 MG/ML AMPULE IV ONE ×4 (16:15→22:37)
[2017-03-09] MEDS ORDERED: ONDANSETRON HCL INJ/PF 4 MG/2 ML SDV IV ONE (16:15)
--- NOTE | 2017-03-09 16:18 | ER Document Report ---
ED Medical Screen (RME) - General Chief Complaint: Abdominal Pain Stated Complaint: ABDOMINAL PAIN Time Seen by Provider: 03/09/17 16:07 Notes: Patient is complaining of abdominal pains. She was diagnosed about 7 months ago with stage IV colon cancer. She was admitted to the hospital here on Sunday because of dehydration and abdominal pain. She was discharged home yesterday, feeling better, but today she is having severe pain in her mid upper central abdomen. She has had a first complete round of chemotherapy from July through December and just started a second round of chemotherapy 2 weeks ago. Not running any fever. Patient of Dr. Gilmore. TRAVEL OUTSIDE OF THE [place] IN LAST 30 DAYS: No - Related Data Allergies/Adverse Reactions: risperidone [From Risperdal] Allergy (Unknown, Verified 03/09/17 15:56) tramadol [Tramadol] Adverse Reaction (Intermediate, Verified 03/09/17 15:56) Nausea ibuprofen [Ibuprofen] Adverse Reaction (Mild, Verified 03/09/17 15:56) Nausea Past Medical History - Social History Frequency of alcohol use: None Drug Abuse: None - Past Medical History Cardiac Medical History: Reports: Hx Hypertension Denies: Hx Coronary Artery Disease, Hx Heart Attack Pulmonary Medical History: Reports: Hx Asthma, Hx Bronchitis Denies: Hx COPD, Hx Pneumonia, Hx Tuberculosis Neurological Medical History: Denies: Hx Cerebrovascular Accident, Hx Seizures Renal/ Medical History: Reports: Hx Ovarian Cysts. Denies: Hx Peritoneal Dialysis Malignancy Medical History: Reports: Hx Colorectal Cancer GI Medical History: Reports: Hx Gastroesophageal Reflux Disease, Hx Ulcer Musculoskeltal Medical History: Denies Hx Arthritis Psychiatric Medical History: Reports: Hx Bipolar Disorder, Hx Depression Traumatic Medical History: Reports: Hx Fractures - RIGHT FEMUR Past Surgical History: Reports: Hx Abdominal Surgery - 1/ colon removed 06/25/16 , Hx Cholecystectomy, Hx Hysterectomy, Hx Orthopedic Surgery - Right Femur fx with heaven placement, Other - Laparoscopic colectomy - Immunizations Hx Diphtheria, Pertussis, Tetanus Vaccination: No History of Influenza Vaccine for 01/2017 - 06/2017 Season: Refused Physical Exam - Vital signs Vitals: Temp Pulse Resp BP Pulse Ox 97.9 F 132 H 20 124/84 97 03/09/17 15:56 03/09/17 15:56 03/09/17 15:56 03/09/17 15:56 03/09/17 15:56 Course - Vital Signs Vital signs: Temp Pulse Resp BP Pulse Ox 97.9 F 132 H 20 124/84 97 03/09/17 15:56 03/09/17 15:56 03/09/17 15:56 03/09/17 15:56 03/09/17 15:56
[2017-03-09 17:19] LABS: APPEARANCE,URINE CLEAR; BILIRUBIN,URINE NEGATIVE (NEGATIVE); GLUCOSE, URINE NEGATIVE (NEGATIVE); KETONES,URINE NEGATIVE (NEGATIVE); LEUKOCYTE ESTERASE,URINE NEGATIVE (NEGATIVE); NITRITE,URINE NEGATIVE (NEGATIVE); PROTEIN,URINE NEGATIVE (NEGATIVE); URINE SPECIFIC GRAVITY 1.002
[2017-03-09 18:18] LABS: ALANINE AMINOTRANSFERASE 31 U/L (9-52); ALBUMIN 2.4 g/dL (3.5-5.0); ALKALINE PHOSPHATASE 173 U/L (38-126); ANION GAP 8 (5-19); ASPARTATE AMINO TRANSFERASE 16 U/L (14-36); BILIRUBIN,DIRECT 0.4 mg/dL (0.0-0.4); BILIRUBIN,TOTAL 0.4 mg/dL (0.2-1.3); BLOOD UREA NITROGEN 5 mg/dL (7-20); CALCIUM 8.9 mg/dL (8.4-10.2); CARBON DIOXIDE 36 mmol/L (22-30); CHLORIDE 100 mmol/L (98-107); GLUCOSE 81 mg/dL (75-110); LIPASE 11.6 U/L (23-300); SODIUM 144.2 mmol/L (137-145); TOTAL PROTEIN 5.2 g/dL (6.3-8.2)
[2017-03-09 18:20] LABS: ABSOLUTE EOSINOPHILS # (AUTO) 0.1 10^3/uL (0.0-0.6); ABSOLUTE LYMPHOCYTES (AUTO) 1.6 10^3/uL (0.5-4.7); ABSOLUTE MONOCYTES (AUTO) 0.5 10^3/uL (0.1-1.4); ABSOLUTE NEUT (AUTO) 3.1 10^3/uL (1.7-8.2); BASOPHILS % (AUTO) 0.8 % (0-2); EOSINOPHILS % (AUTO) 0.9 % (0-6); HEMATOCRIT 40.1 % (36.0-47.0); HEMOGLOBIN 13.5 g/dL (12.0-15.5); HGB HCT DIFFERENCE 0.4; LYMPHOCYTES % (AUTO) 30.5 % (13-45); MEAN CORPUSCULAR HEMOGLOBIN 30.2 pg (27.0-33.4); MEAN CORPUSCULAR HGB CONC 33.6 g/dL (32.0-36.0); MEAN CORPUSCULAR VOLUME 90 fl (80-97); MONOCYTES % (AUTO) 9.8 % (3-13); RED BLOOD COUNT 4.47 10^6/uL (3.72-5.28); RED CELL DISTRIBUTION WIDTH 15.6 % (11.5-14.0); WHITE BLOOD COUNT 5.4 10^3/uL (4.0-10.5)
[2017-03-09 18:21] LABS: POTASSIUM 2.6 mmol/L (3.6-5.0)
--- NOTE | 2017-03-09 18:36 | ER Document Report ---
ED GI/ - General Mode of Arrival: Ambulatory Information source: Patient TRAVEL OUTSIDE OF THE [place] IN LAST 30 DAYS: No - HPI Patient complains to provider of: Abdominal pain <ANKITA GENTILE - Last Filed: 03/09/17 19:25> <BHAVIK THOMPSON - Last Filed: 03/09/17 23:34> - General Chief Complaint: Abdominal Pain Stated Complaint: ABDOMINAL PAIN Time Seen by Provider: 03/09/17 16:07 Notes: Patient is a 36 year old female with a history of Stage IV Colon Cancer presents to the emergency department accompanined by bety complaining of abdominal pain onset 03/06/2017. Patient was admitted to the hospital on Sunday complaining of similar symptoms and was discharged after feeling better. Patient states that the pain returned and worsened today. Patient states the pain is exacerbated with eating and drinking. Patients associated sympotoms include nausea and a distended abdomen. Patient denies fever, hematuria, or blurry vision. Patient states her last BM was this morning. At bedside patient is tearful. Patients omarance states that she believes the patient may also be dehydrated due to the patients chapped lips. Patient has completed her first round of chemotherapy and her second round is in 2 weeks. (ANKITA GENTILE) - Related Data Allergies/Adverse Reactions: risperidone [From Risperdal] Allergy (Unknown, Verified 03/09/17 15:56) tramadol [Tramadol] Adverse Reaction (Intermediate, Verified 03/09/17 15:56) Nausea ibuprofen [Ibuprofen] Adverse Reaction (Mild, Verified 03/09/17 15:56) Nausea Past Medical History - General Information source: Patient - Social History Smoking Status: Current Every Day Smoker Frequency of alcohol use: None Drug Abuse: None Family History: DM, Hypertension, Other Patient has suicidal ideation: No Patient has homicidal ideation: No - Past Medical History Cardiac Medical History: Reports: Hx Hypertension Pulmonary Medical History: Reports: Hx Asthma, Hx Bronchitis Renal/ Medical History: Reports: Hx Ovarian Cysts Malignancy Medical History: Reports: Hx Colorectal Cancer GI Medical History: Reports: Hx Gastroesophageal Reflux Disease, Hx Ulcer Psychiatric Medical History: Reports: Hx Bipolar Disorder, Hx Depression Traumatic Medical History: Reports: Hx Fractures - RIGHT FEMUR Past Surgical History: Reports: Hx Abdominal Surgery - 1/3 colon removed 06/25/16 , Hx Cholecystectomy, Hx Hysterectomy, Hx Orthopedic Surgery - Right Femur fx with heaven placement, Other - Laparoscopic colectomy - Immunizations Hx Diphtheria, Pertussis, Tetanus Vaccination: No <ANKITA GENTILE - Last Filed: 03/09/17 19:25> Review of Systems - Review of Systems Constitutional: No symptoms reported EENT: No symptoms reported Cardiovascular: No symptoms reported Respiratory: No symptoms reported Gastrointestinal: See HPI, Abdomen distended, Abdominal pain, Nausea Genitourinary: No symptoms reported Female Genitourinary: No symptoms reported Musculoskeletal: No symptoms reported Skin: No symptoms reported Hematologic/Lymphatic: No symptoms reported Neurological/Psychological: No symptoms reported -: Yes All other systems reviewed and negative <ANKITA GENTILE - Last Filed: 03/09/17 19:25> Physical Exam <ANKITA GENTILE - Last Filed: 03/09/17 19:25> <BHAVIK THOMPSON - Last Filed: 03/09/17 23:34> - Vital signs Vitals: Temp Pulse Resp BP Pulse Ox 97.9 F 132 H 20 124/84 97 03/09/17 15:56 03/09/17 15:56 03/09/17 15:56 03/09/17 15:56 03/09/17 15:56 - Notes Notes: GENERAL: Alert, interacts well. Tearful at bedside. HEAD: Normocephalic, atraumatic. EYES: Pupils equal, round, and reactive to light. Extraocular movements intact. ENT: Oral mucosa moist, tongue midline. NECK: Full range of motion. Supple. Trachea midline. LUNGS: Clear to auscultation bilaterally, no wheezes, rales, or rhonchi. No respiratory distress. HEART: Tachycardic. No murmurs, gallops, or rubs. Port on chest is accessed. ABDOMEN: Soft, diffusely tender to palpation. No rebound or rigidity. Moderately distended. Decreased bowel sounds. EXTREMITIES: Moves all 4 extremities spontaneously. No edema, radial and dorsalis pedis pulses 2/4 bilaterally. No cyanosis. NEUROLOGICAL: Alert and oriented x3. Normal speech. PSYCH: Normal affect, patient is tearful. SKIN: Warm, dry, normal turgor. No rashes or lesions noted. (ANKITA GENTILE) Course - Laboratory Result Diagrams: 03/09/17 17:47 03/09/17 17:47 <ANKITA GENTILE - Last Filed: 03/09/17 19:25> - Laboratory Result Diagrams: 03/09/17 17:47 03/09/17 17:47 <BHAVIK THOMPSON - Last Filed: 03/09/17 23:34> - Re-evaluation Re-evalutation: 03/09/17 22:39 CBC shows elevated platelets of 454 otherwise unremarkable, CMP shows continuing hypokalemia with a potassium of 2.6, this is repleted IV with K riders, no signs of dehydration, alkaline phosphatase is somewhat elevated and concerning for bony metastases, urinalysis unremarkable, CT scan the abdomen and pelvis shows soft tissue mass consistent with local tumor recurrence causing small bowel obstruction. Discussed this with Dr. Naomie chopra and Dr. Bush of the surgeon on-call, both agree with admission for decompression with NG tube and further evaluation for need for surgery in the morning. No indication for emergent surgery at this time, no evidence of perforation. Patient and fiance informed of the findings. 03/09/17 23:34 Tobacco counseling not performed due to other more serious comorbidities. ( BHAVIK THOMPSON) - Vital Signs Vital signs: Temp Pulse Resp BP Pulse Ox 97.5 F 101 H 20 115/64 96 03/09/17 18:03 03/09/17 20:48 03/09/17 20:48 03/09/17 20:48 03/09/17 20:48 - Laboratory Laboratory results interpreted by me: 03/09/17 03/09/17 03/09/17 16:43 17:47 17:47 RDW 15.6 H Plt Count 454 H Potassium 2.6 L* Carbon Dioxide 36 H BUN 5 L Alkaline Phosphatase 173 H Total Protein 5.2 L Albumin 2.4 L Lipase 11.6 L Urine Urobilinogen 2.0 H Discharge <ANKITA GENTILE - Last Filed: 03/09/17 19:25> - Discharge Admitting Provider: Surgicalist - Ro Unit Admitted: Surgical Floor <BHAVIK THOMPSON - Last Filed: 03/09/17 23:34> - Discharge Clinical Impression: Small bowel obstruction, Hypokalemia, Tobacco abuse Colon cancer Qualifiers: Colon location: unspecified part of colon Qualified Code(s): C18.9 - Malignant neoplasm of colon, unspecified Condition: Fair Disposition: ADMITTED INPATIENT Scribe Attestation: 03/09/17 23:34 I personally performed the services described in the documentation, reviewed and edited the documentation which was dictated to the scribe in my presence, and it accurately records my words and actions. (BHAVIK THOMPSON) Scribe Documentation - Scribe Written by Scribe:: Lizzeth Selby, 03/09/2017 19:30 acting as scribe for :: Pippa <ANKITA GENTILE - Last Filed: 03/09/17 19:25>
[2017-03-09] MEDS ORDERED: RINGERS SOLUTION,LACTATED 1,000 ML IV ONE ×2 (18:37→22:27)
[2017-03-09] MEDS: POTASSI CL 20 MEQ/50 ML RIDER 20 MEQ/50 ML RTUPB IV SCH ×2 (20:23→22:53)
--- NOTE | 2017-03-09 22:08 | RADIOLOGY REPORT (SQ) ---
EXAM DESCRIPTION: CT ABD/PELVIS WITH IV ORAL COMPLETED DATE/TIME: 03/09/2017 9:28 pm REASON FOR STUDY: stage 4 colon CA, diffuse abd pain, COMPARISON: CT abdomen pelvis 02/18/2013, 06/25/2016, 07/27/2016, 01/29/2017 CT chest 01/29/2017, 07/27/2016 PET-CT 02/11/2017 TECHNIQUE: CT scan of the abdomen and pelvis performed using helical scanning technique with dynamic intravenous contrast injection. Patient drank oral contrast. Images reviewed with lung, soft tissue , and bone windows. Reconstructed coronal and sagittal MPR images reviewed. Delayed images for evalua tion of the urinary system also acquired. All images stored on PACS. All CT scanners at this facility use dose modulation, iterative reconstruction, and/or weight based d osing when appropriate to reduce radiation dose to as low as reasonably achievable (ALARA). [facility]: Dose Right [facility]: CareDose [facility]: Dose Right [facility]: Teradose 4D [facility]: [facility] [employer] CONTRAST TYPE AND DOSE: contrast/concentration: Isovue 370.00 mg/ml; Total Contrast Delivered: 98.0 ml; Total Saline Delivered: 72.0 ml RENAL FUNCTION: Creatinine 0.6 RADIATION DOSE: CT Rad equipment meets quality standard of care and radiation dose reduction techniq ues were employed. CTDIvol: 18.1 - 20.3 mGy. DLP: 2098 mGy-cm.. LIMITATIONS: None. FINDINGS: At the site of the right partial colectomy and ileocolic anastomosis, there is a soft tiss ue mass adjacent to the staple line 4.9 x 4.3 cm in size compatible with local tumor recurrence. Adj acent tethered obstructed small bowel loops are present with significant dilatation of small bowel in the mid and lower abdomen. There are multiple small peritoneal implants along the right subphrenic region and right flank, measu ring 1 to 2 cm in size. Small nodules along the peritoneal surface of the liver are present, increas ed in size compared to PET-CT 02/11/2017. No ascites. No free intraperitoneal air. LOWER CHEST: No significant findings. No nodules or infiltrates. LIVER: Normal size. No masses. No dilated ducts. SPLEEN: Normal size. No focal lesions. PANCREAS: No masses. No significant calcifications. No adjacent inflammation or peripancreatic fluid collections. Pancreatic duct not dilated. GALLBLADDER: Surgically absent ADRENAL GLANDS: No significant masses or asymmetry. RIGHT KIDNEY AND URETER: No solid masses. No significant calcifications. No hydronephrosis or hyd roureter. LEFT KIDNEY AND URETER: No solid masses. No significant calcifications. No hydronephrosis or hydr oureter. AORTA AND VESSELS: No aneurysm. No dissection. Renal arteries, SMA, celiac without stenosis. RETROPERITONEUM: No retroperitoneal adenopathy, hemorrhage or masses. BOWEL AND PERITONEAL CAVITY: As above APPENDIX: Surgically absent PELVIS: No mass. No free fluid. Normal bladder. Post hysterectomy ABDOMINAL WALL: No masses. No hernias. BONES: No gross bony metastatic disease OTHER: No other significant finding. IMPRESSION: High-grade distal small-bowel obstruction at the ileocolic anastomosis related to focal tumor mass at the staple line, 4.9 x 4.3 cm in size. TECHNICAL DOCUMENTATION: JOB ID: [id number] Quality ID # [id number]: Final reports with documentation of one or more dose reduction techniques (e.g., Au tomated exposure control, adjustment of the mA and/or kV according to patient size, use of iterative reconstruction technique) 2010 [employer]- All Rights Reserved
[2017-03-10] MEDS: POTASSI CL 20 MEQ/50 ML RIDER 20 MEQ/50 ML RTUPB IV SCH (01:05)
[2017-03-10] MEDS: HYDROMORPHONE HCL INJ/PF 2 MG/ML AMPULE IV PRN ×9 (01:06→21:21)
--- NOTE | 2017-03-10 01:35 | RADIOLOGY REPORT (SQ) ---
EXAM DESCRIPTION: CHEST SINGLE VIEW COMPLETED DATE/TIME: 03/10/2017 12:29 am REASON FOR STUDY: NG TUBE INSERTION COMPARISON: CT, 03/09/2017. EXAM PARAMETERS: NUMBER OF VIEWS: One view. TECHNIQUE: Single frontal radiographic view of the chest acquired. RADIATION DOSE: NA LIMITATIONS: Partial view for enteric tube evaluation only. FINDINGS: LUNGS AND PLEURA: No opacities, masses or pneumothorax. No pleural effusion. MEDIASTINUM AND HILAR STRUCTURES: No masses. Contour normal. HEART AND VASCULAR STRUCTURES: Heart normal in size. Normal vasculature. BONES: No acute findings. HARDWARE: Adequate appearing NG tube. Tip of an right internal jugular central line at the right atr ium; consider 8 cm retraction. Right upper abdominal clips. OTHER: Moderate dilated stacked small bowel loops of the left upper abdomen consistent with abnormal CT from 1 day prior. IMPRESSION: Uncomplicated NG tube.Moderate dilated stacked small bowel loops of the left upper abdom en consistent with abnormal CT from 1 day prior. TECHNICAL DOCUMENTATION: JOB ID: [id number] [facility]- All Rights Reserved
[2017-03-10] MEDS ORDERED: POTASSI CL 20 MEQ/50 ML RIDER 20 MEQ/50 ML RTUPB IV ONE ×2 (01:45)
[2017-03-10] MEDS ORDERED: HYDROMORPHONE HCL INJ/PF 2 MG/ML AMPULE IV ONE (04:45)
[2017-03-10 06:43] LABS: HEMATOCRIT 37.2 % (36.0-47.0); HEMOGLOBIN 12.5 g/dL (12.0-15.5); HGB HCT DIFFERENCE 0.3; MEAN CORPUSCULAR HEMOGLOBIN 30.3 pg (27.0-33.4); MEAN CORPUSCULAR HGB CONC 33.5 g/dL (32.0-36.0); MEAN CORPUSCULAR VOLUME 90 fl (80-97); RED BLOOD COUNT 4.11 10^6/uL (3.72-5.28); WHITE BLOOD COUNT 6.3 10^3/uL (4.0-10.5)
[2017-03-10 07:08] LABS: ANION GAP 9 (5-19); BLOOD UREA NITROGEN 7 mg/dL (7-20); CALCIUM 8.3 mg/dL (8.4-10.2); CARBON DIOXIDE 31 mmol/L (22-30); CHLORIDE 104 mmol/L (98-107); CREATININE RESULT 0.53 mg/dL (0.52-1.25); GLUCOSE 84 mg/dL (75-110); POTASSIUM 3.4 mmol/L (3.6-5.0); SODIUM 143.7 mmol/L (137-145)
[2017-03-10] MEDS: POTASSI CL 20 MEQ/D5-1/2NS 1L 1000 ML IV PRN ×2 (07:30→14:10)
--- NOTE | 2017-03-10 10:10 | PDOC CONSULTATION ---
Consultation Consult Date: 03/10/17 Attending physician:: DIRK FLORES Consult reason:: Stage IV colon ca, SBO, n/v History of Present Illness Admission Date/PCP: 03/09/17 23:11 JAKE PRECIADO MD Patient complains of: N/V History of Present Illness: DON KING is a 36 year old female well-known to our oncology service with known history of stage IV colon cancer, with carcinomatosis, presents with nausea and vomiting, she was just admitted with similar symptoms but improved and ultimately discharged home on , she was able to eat that night, but then on Sunday she began having nausea and vomiting again, ultimately was not able to tolerate any p.o., and presented to the ED, there CT abdomen pelvis was done, this indicated high-grade obstruction at the anastomotic site, a tumor implant now was 4.9 cm, previously that area was in the 2 cm range. She had an NG tube placed and is doing a little bit better today. Past Medical History Cardiac Medical History: Reports: Hypertension Denies: Coronary Artery Disease, Myocardial Infarction Pulmonary Medical History: Reports: Asthma, Bronchitis Denies: Chronic Obstructive Pulmonary Disease (COPD), Pneumonia, Tuberculosis Neurological Medical History: Denies: Seizures Malignancy Medical History: Reports: Colorectal Cancer GI Medical History: Reports: Gastroesophageal Reflux Disease Musculoskeltal Medical History: Denies: Arthritis Psychiatric Medical History: Reports: Bipolar Disorder, Depression Hematology: Reports: Anemia Past Surgical History Past Surgical History: Reports: Cholecystectomy, Hysterectomy, Orthopedic Surgery - Right Femur fx with heaven placement, Other - Laparoscopic colectomy Social History Information Source: Patient Smoking Status: Current Every Day Smoker Frequency of Alcohol Use: None Hx Recreational Drug Use: No Drugs: None Hx Prescription Drug Abuse: No Family History Family History: DM, Hypertension, Other Parental Family History Reviewed: Yes Children Family History Reviewed: Yes Sibling(s) Family History Reviewed.: Yes Medication/Allergy Home Medications: Baclofen [Baclofen 10 mg Tablet] 10 mg PO BIDP PRN 03/06/17 Ondansetron HCl [Zofran 8 mg Tablet] 8 mg PO Q8HP PRN 03/06/17 Oxycodone HCl 40 mg PO Q6HP PRN 03/06/17 Fentanyl [Duragesic 50 Mcg/Hr Transdermal Patch] 1 each TD Q3D@1500 patch.td72 03/08/17 Allergies/Adverse Reactions: risperidone [From Risperdal] Allergy (Unknown, Verified 03/09/17 15:56) tramadol [Tramadol] Adverse Reaction (Intermediate, Verified 03/09/17 15:56) Nausea ibuprofen [Ibuprofen] Adverse Reaction (Mild, Verified 03/09/17 15:56) Nausea Review of Systems Constitutional: PRESENT: anorexia, fatigue, weakness, weight loss Cardiovascular: ABSENT: chest pain, dyspnea on exertion, edema, orthropnea, palpitations Respiratory: ABSENT: cough, hemoptysis Gastrointestinal: PRESENT: bloating, nausea, vomiting Musculoskeletal: PRESENT: back pain Neurological: ABSENT: abnormal gait, abnormal speech, confusion, dizziness, focal weakness, syncope Physical Exam Vital Signs: Temp Pulse Resp BP Pulse Ox 98.8 F 118 H 16 126/84 H 95 03/10/17 08:12 03/10/17 08:12 03/10/17 08:12 03/10/17 08:12 03/10/17 08:12 Intake & Output 03/09/17 03/10/17 03/11/17 06:59 06:59 06:59 Intake Total 0 Output Total 300 Balance -300 General appearance: PRESENT: no acute distress, well-developed, well-nourished Head exam: PRESENT: atraumatic, normocephalic Eye exam: PRESENT: conjunctiva pink, EOMI, PERRLA. ABSENT: scleral icterus Ear exam: PRESENT: normal external ear exam Mouth exam: PRESENT: moist, tongue midline Neck exam: ABSENT: carotid bruit, JVD, lymphadenopathy, thyromegaly Respiratory exam: PRESENT: clear to auscultation colt. ABSENT: rales, rhonchi, wheezes Cardiovascular exam: PRESENT: RRR. ABSENT: diastolic murmur, rubs, systolic murmur Pulses: PRESENT: normal dorsalis pedis pul Vascular exam: PRESENT: normal capillary refill GI/Abdominal exam: PRESENT: normal bowel sounds, soft. ABSENT: distended, guarding, mass, organolmegaly, rebound, tenderness Rectal exam: PRESENT: deferred Extremities exam: PRESENT: full ROM. ABSENT: calf tenderness, clubbing, pedal edema Neurological exam: PRESENT: alert, awake, oriented to person, oriented to place , oriented to time, oriented to situation, CN II-XII grossly intact. ABSENT: motor sensory deficit Psychiatric exam: PRESENT: appropriate affect, normal mood. ABSENT: homicidal ideation, suicidal ideation Skin exam: PRESENT: dry, intact, warm. ABSENT: cyanosis, rash Results Laboratory Results: 03/10/17 06:25 03/10/17 06:25 03/10/17 03/10/17 06:25 06:25 WBC 6.3 RBC 4.11 Hgb 12.5 Hct 37.2 MCV 90 MCH 30.3 MCHC 33.5 RDW 16.0 H Plt Count 426 Sodium 143.7 Potassium 3.4 L Chloride 104 Carbon Dioxide 31 H Anion Gap 9 BUN 7 Creatinine 0.53 Est GFR ( Amer) > 60 Est GFR (Non-Af Amer) > 60 Glucose 84 Calcium 8.3 L Impressions: Abdomen/Pelvis CT 03/09/17 00:00 IMPRESSION: High-grade distal small-bowel obstruction at the ileocolic anastomosis related to focal tumor mass at the staple line, 4.9 x 4.3 cm in size. Chest X-Ray 03/09/17 00:00 IMPRESSION: Uncomplicated NG tube.Moderate dilated stacked small bowel loops of the left upper abdomen consistent with abnormal CT from 1 day prior. Status: Image reviewed by me Assessment & Plan - Diagnosis (1) Small bowel obstruction Is this a current diagnosis for this admission?: Yes Plan: Had long discussion with patient, also discussed with surgical team, the high- grade area of obstruction is not the only area of disease unfortunately, there seems to be multilevel obstruction, the surgicalist does not believe that there is a surgical option for her unfortunately. We will continue with medical management with NG tube to suction, and hope that the obstruction relieves itself. Continue with IV hydration. (2) Colon cancer Qualifiers: Colon location: ascending Qualified Code(s): C18.9 - Malignant neoplasm of colon, unspecified Plan: Today had a long discussion with patient and family, discussed that if the obstruction does not relieve, we probably will not be able to continue treatment , even if the obstruction relieves unfortunately it has a high probability of happening again. We discussed the utility of hospice, at this point patient and family are not ready to discuss this. We will discuss this further as time goes on. Certainly treatment will be on hold until this resolves. (3) Pain, neoplasm-related Is this a current diagnosis for this admission?: Yes Plan: On last admission patient was discharged with the fentanyl patch as far as I know, she is continued on Dilaudid, we will need to re-add the fentanyl patch. We will manage this. - Time Time Spent: Greater than 70 Minutes Critical Time spent with patient: 35 or more minutes - Inpatient Certification Based on my medical assessment, after consideration of the patient's comorbidities, presenting symptoms, or acuity I expect that the services needed warrant INPATIENT care.: Yes I certify that my determination is in accordance with my understanding of Medicare's requirements for reasonable and necessary INPATIENT services [42 CFR 412.3e].: Yes Medical Necessity: Failure to Improve With Outpatient Therapy, Need For IV Fluids, Need for Pain Control
[2017-03-10] MEDS: ENOXAPARIN SODIUM INJ 40 MG/0.4 ML DISP.SYRIN SUBCUT SCH (10:45)
[2017-03-10] MEDS ORDERED: FENTANYL 50 MCG/HR PATCH.TD72 TD ONE (11:30)
--- NOTE | 2017-03-10 17:59 | HISTORY AND PHYSICAL E ---
History and Physical NAME: DON KING : 1980 AGE: 36Y ADMITTED: 03/09/2017 ROOM: 407 HISTORY OF PRESENT ILLNESS: The patient re-presenting to the emergency room with a history of a small-bowel obstruction, nausea, vomiting, abdominal pain. The patient unfortunately was diagnosed to have a stage IV colon cancer, and she has been on chemotherapy. She went into the hospital recently for a small-bowel obstruction and discharged while she was eating and now for the past day or so started having abdominal pain, nausea, vomiting, and also abdominal distention. PAST MEDICAL HISTORY: History of colon cancer in June of 2016. She had a colectomy. Other than that, she also had surgery, cholecystectomy. She has been on chemotherapy by oncology. REVIEW OF OTHER SYSTEMS: As per examination. PHYSICAL EXAMINATION: GENERAL: Alert and oriented female patient who looks to be dehydrated. HEAD AND NECK EXAMINATION: No lymphadenopathy. No masses. RESPIRATORY EXAM: Both lungs good air entry. CARDIOVASCULAR EXAMINATION: Both heart sounds regular. No murmurs. No gallops. ABDOMINAL EXAMINATION: Distended abdomen. Soft. Healed midline . EXTREMITIES: Warm and perfused. IMAGING DATA: A CT scan done has shown a right colectomy with ileocolonic anastomosis, mass adjacent to the staple line about 4 cm, possible local tumor recurrence. there are dilated small-bowel loops. Also there seems to be carcinomatosis along the right flank. LABORATORY DATA: White count 5.4, hemoglobin 13.5, potassium 2.6, BUN 8, creatinine 0.6. IMPRESSION OVERALL: obstruction. Unfortunately most of this seems to be due to carcinomatosis, malignant obstruction. PLAN: Admit, NG tube, IV hydration, DVT prophylaxis. Further long-term management would be pretty unfortunately limited options, including operative procedure ostomy as an option malignant obstruction due to carcinomatosis, even that would not be effective in the retirement. This is the time, once we get her comfortable and situated, probably need to have a family discussion about further care, including palliative care. DICTATING PHYSICIAN: DIRK FLORES M.D. [id number] PHY#: [id number] ID: [id number] JOB#: [id number] ACCT: [id number] cc: > MTDD
[2017-03-11] MEDS: HYDROMORPHONE HCL INJ/PF 2 MG/ML AMPULE IV PRN ×11 (00:04→23:15)
[2017-03-11] MEDS: POTASSI CL 20 MEQ/D5-1/2NS 1L 1000 ML IV PRN ×3 (00:06→23:15)
[2017-03-11 08:56] LABS: ANION GAP 7 (5-19); BLOOD UREA NITROGEN 8 mg/dL (7-20); CARBON DIOXIDE 30 mmol/L (22-30); CHLORIDE 105 mmol/L (98-107); CREATININE RESULT 0.51 mg/dL (0.52-1.25); GLUCOSE 80 mg/dL (75-110); SODIUM 142.2 mmol/L (137-145)
[2017-03-11 09:04] LABS: POTASSIUM 2.9 mmol/L (3.6-5.0)
--- NOTE | 2017-03-11 09:22 | RADIOLOGY REPORT (SQ) ---
EXAM DESCRIPTION: ABDOMEN 2 VIEWS COMPLETED DATE/TIME: 03/11/2017 9:01 am REASON FOR STUDY: ab pain. 2 view upright and supine COMPARISON: CT abdomen pelvis 03/09/2017 PET-CT 02/11/2017 NUMBER OF VIEWS: Two views. TECHNIQUE: Supine and upright radiographic images of the abdomen acquired. LIMITATIONS: None. FINDINGS: FREE AIR: None. No abnormal gas collections. LUNG BASES: Clear. BOWEL GAS PATTERN: A small amount of oral contrast given for CT exam 03/09/2017 is seen in the transv erse colon. There is persistent dilatation of small bowel loops with air-fluid levels worrisome for small bowel o bstruction. Nasogastric tube tip in the stomach, stomach fundus decompressed. CALCIFICATIONS: No suspicious calcifications. SOFT TISSUES: No gross mass or suggestion of organomegaly. HARDWARE: Surgical codi in the right flank post right partial colectomy. BONES: No acute fracture. No worrisome bone lesions. OTHER: No other significant finding. IMPRESSION: Persistent dilated small bowel loops worrisome for small bowel obstruction. TECHNICAL DOCUMENTATION: JOB ID: [id number]- All Rights Reserved
[2017-03-11 10:10] LABS: ABSOLUTE BASOPHILS # (AUTO) 0.1 10^3/uL (0.0-0.2); ABSOLUTE EOSINOPHILS # (AUTO) 0.1 10^3/uL (0.0-0.6); ABSOLUTE LYMPHOCYTES (AUTO) 2.2 10^3/uL (0.5-4.7); ABSOLUTE MONOCYTES (AUTO) 0.8 10^3/uL (0.1-1.4); BASOPHILS % (AUTO) 0.7 % (0-2); EOSINOPHILS % (AUTO) 1.1 % (0-6); HEMATOCRIT 37.4 % (36.0-47.0); HEMOGLOBIN 12.6 g/dL (12.0-15.5); HGB HCT DIFFERENCE 0.4; LYMPHOCYTES % (AUTO) 30.3 % (13-45); MEAN CORPUSCULAR HEMOGLOBIN 30.6 pg (27.0-33.4); MEAN CORPUSCULAR HGB CONC 33.8 g/dL (32.0-36.0); MEAN CORPUSCULAR VOLUME 90 fl (80-97); MONOCYTES % (AUTO) 11.1 % (3-13); RED BLOOD COUNT 4.13 10^6/uL (3.72-5.28); SEGMENTED NEUTROPHILS % (AUTO) 56.8 % (42-78); WHITE BLOOD COUNT 7.1 10^3/uL (4.0-10.5)
[2017-03-11] MEDS: POTASSIUM CHLORIDE 20 MEQ/50 ML RTU IV SCH ×2 (10:30→12:19)
[2017-03-11] MEDS: ENOXAPARIN SODIUM INJ 40 MG/0.4 ML DISP.SYRIN SUBCUT SCH (10:37)
--- NOTE | 2017-03-11 12:01 | PDOC PROGRESS REPORT ---
Subjective Progress Note for:: 03/11/17 Subjective:: Feeling better to day Had BM Physical Exam Vital Signs: Temp Pulse Resp BP Pulse Ox 97.1 F 109 H 16 139/98 H 97 03/11/17 08:46 03/11/17 08:46 03/11/17 08:46 03/11/17 08:46 03/11/17 08:46 Intake & Output 03/10/17 03/11/17 03/12/17 06:59 06:59 06:59 Intake Total 0 4957 Output Total 300 2600 Balance -300 2357 GI/Abdominal exam: PRESENT: other - Distention less, soft Nontender Results Laboratory Results: 03/11/17 10:00 03/11/17 08:20 03/11/17 03/11/17 08:20 10:00 WBC 7.1 RBC 4.13 Hgb 12.6 Hct 37.4 MCV 90 MCH 30.6 MCHC 33.8 RDW 16.0 H Plt Count 391 Seg Neutrophils % 56.8 Lymphocytes % 30.3 Monocytes % 11.1 Eosinophils % 1.1 Basophils % 0.7 Absolute Neutrophils 4.0 Absolute Lymphocytes 2.2 Absolute Monocytes 0.8 Absolute Eosinophils 0.1 Absolute Basophils 0.1 Sodium 142.2 Potassium 2.9 L* Chloride 105 Carbon Dioxide 30 Anion Gap 7 BUN 8 Creatinine 0.51 L Est GFR ( Amer) > 60 Est GFR (Non-Af Amer) > 60 Glucose 80 Calcium 8.0 L Impressions: Abdomen/Pelvis CT 03/09/17 00:00 IMPRESSION: High-grade distal small-bowel obstruction at the ileocolic anastomosis related to focal tumor mass at the staple line, 4.9 x 4.3 cm in size. Chest X-Ray 03/09/17 00:00 IMPRESSION: Uncomplicated NG tube.Moderate dilated stacked small bowel loops of the left upper abdomen consistent with abnormal CT from 1 day prior. Abdomen X-Ray 03/11/17 08:00 IMPRESSION: Persistent dilated small bowel loops worrisome for small bowel obstruction. 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
--- NOTE | 2017-03-11 13:22 | PDOC PROGRESS REPORT ---
Subjective Progress Note for:: 03/11/17 Subjective:: Patient still having spasms in the abdomen that are very painful, probably around the obstruction site, she did have a abdominal x-ray which indicated continued obstruction but per surgery it seems a little bit better. Physical Exam Vital Signs: Temp Pulse Resp BP Pulse Ox 97.1 F 109 H 16 139/98 H 97 03/11/17 08:46 03/11/17 08:46 03/11/17 08:46 03/11/17 08:46 03/11/17 08:46 Intake & Output 03/10/17 03/11/17 03/12/17 06:59 06:59 06:59 Intake Total 0 4957 Output Total 300 2600 Balance -300 2357 General appearance: PRESENT: no acute distress, well-developed, well-nourished Head exam: PRESENT: atraumatic, normocephalic Eye exam: PRESENT: conjunctiva pink, EOMI, PERRLA. ABSENT: scleral icterus Ear exam: PRESENT: normal external ear exam Mouth exam: PRESENT: moist, tongue midline Neck exam: ABSENT: carotid bruit, JVD, lymphadenopathy, thyromegaly Respiratory exam: PRESENT: clear to auscultation colt. ABSENT: rales, rhonchi, wheezes Cardiovascular exam: PRESENT: RRR. ABSENT: diastolic murmur, rubs, systolic murmur Pulses: PRESENT: normal dorsalis pedis pul Vascular exam: PRESENT: normal capillary refill GI/Abdominal exam: PRESENT: normal bowel sounds, soft. ABSENT: distended, guarding, mass, organolmegaly, rebound, tenderness Rectal exam: PRESENT: deferred Extremities exam: PRESENT: full ROM. ABSENT: calf tenderness, clubbing, pedal edema Neurological exam: PRESENT: alert, awake, oriented to person, oriented to place , oriented to time, oriented to situation, CN II-XII grossly intact. ABSENT: motor sensory deficit Psychiatric exam: PRESENT: appropriate affect, normal mood. ABSENT: homicidal ideation, suicidal ideation Skin exam: PRESENT: dry, intact, warm. ABSENT: cyanosis, rash Results Laboratory Results: 03/11/17 10:00 03/11/17 08:20 03/11/17 03/11/17 08:20 10:00 WBC 7.1 RBC 4.13 Hgb 12.6 Hct 37.4 MCV 90 MCH 30.6 MCHC 33.8 RDW 16.0 H Plt Count 391 Seg Neutrophils % 56.8 Lymphocytes % 30.3 Monocytes % 11.1 Eosinophils % 1.1 Basophils % 0.7 Absolute Neutrophils 4.0 Absolute Lymphocytes 2.2 Absolute Monocytes 0.8 Absolute Eosinophils 0.1 Absolute Basophils 0.1 Sodium 142.2 Potassium 2.9 L* Chloride 105 Carbon Dioxide 30 Anion Gap 7 BUN 8 Creatinine 0.51 L Est GFR ( Amer) > 60 Est GFR (Non-Af Amer) > 60 Glucose 80 Calcium 8.0 L Impressions: Abdomen/Pelvis CT 03/09/17 00:00 IMPRESSION: High-grade distal small-bowel obstruction at the ileocolic anastomosis related to focal tumor mass at the staple line, 4.9 x 4.3 cm in size. Chest X-Ray 03/09/17 00:00 IMPRESSION: Uncomplicated NG tube.Moderate dilated stacked small bowel loops of the left upper abdomen consistent with abnormal CT from 1 day prior. Abdomen X-Ray 03/11/17 08:00 IMPRESSION: Persistent dilated small bowel loops worrisome for small bowel obstruction. Assessment & Plan - Diagnosis (1) Small bowel obstruction Is this a current diagnosis for this admission?: Yes Plan: Slightly improved, continue with NG tube suction, continue per surgical team. They have noted that a surgical option does not seem possible, continue with medical management. (2) Colon cancer Qualifiers: Colon location: ascending Qualified Code(s): C18.9 - Malignant neoplasm of colon, unspecified Plan: Today had a long discussion with patient, they are not ready to stop treatment at all, I went over the risks and benefits of continued treatment versus stopping treatment, I did offer comfort care measures and hospice, at this point they are not ready for that at all. In fact they want to continue chemotherapy this week as scheduled. I believe she is improved by tomorrow, it would be reasonable to continue chemotherapy in-house. (3) Pain, neoplasm-related Is this a current diagnosis for this admission?: Yes Plan: I will increase her pain medication to fentanyl 75 mcg every 72 hours. Continue with same dose Dilaudid. - Time Time Spent with patient: 35 or more minutes Critical Time spent with patient: 35 or more minutes - Inpatient Certification Based on my medical assessment, after consideration of the patient's comorbidities, presenting symptoms, or acuity I expect that the services needed warrant INPATIENT care.: Yes I certify that my determination is in accordance with my understanding of Medicare's requirements for reasonable and necessary INPATIENT services [42 CFR 412.3e].: Yes Medical Necessity: Need Close Monitoring Due to Risk of Patient Decompensation, Need For IV Fluids, Need For Continuous Telemetry Monitoring, Need for Pain Control, Need for Surgery
[2017-03-11] MEDS: FENTANYL 75 MCG/HR PATCH.TD72 TD SCH (14:31)
[2017-03-12] MEDS: HYDROMORPHONE HCL INJ/PF 2 MG/ML AMPULE IV PRN ×10 (03:30→22:45)
[2017-03-12 07:35] LABS: ABSOLUTE EOSINOPHILS # (AUTO) 0.1 10^3/uL (0.0-0.6); ABSOLUTE LYMPHOCYTES (AUTO) 2.4 10^3/uL (0.5-4.7); ABSOLUTE MONOCYTES (AUTO) 0.7 10^3/uL (0.1-1.4); BASOPHILS % (AUTO) 0.6 % (0-2); EOSINOPHILS % (AUTO) 1.1 % (0-6); HEMATOCRIT 39.4 % (36.0-47.0); HEMOGLOBIN 12.9 g/dL (12.0-15.5); HGB HCT DIFFERENCE -0.7; MEAN CORPUSCULAR HEMOGLOBIN 29.7 pg (27.0-33.4); MEAN CORPUSCULAR HGB CONC 32.7 g/dL (32.0-36.0); MEAN CORPUSCULAR VOLUME 91 fl (80-97); MONOCYTES % (AUTO) 8.9 % (3-13); RED BLOOD COUNT 4.33 10^6/uL (3.72-5.28); RED CELL DISTRIBUTION WIDTH 15.9 % (11.5-14.0); SEGMENTED NEUTROPHILS % (AUTO) 60.4 % (42-78); WHITE BLOOD COUNT 8.2 10^3/uL (4.0-10.5)
[2017-03-12] MEDS: POTASSI CL 20 MEQ/D5-1/2NS 1L 1000 ML IV PRN ×2 (07:44→22:45)
--- NOTE | 2017-03-12 07:55 | PDOC PROGRESS REPORT ---
Subjective Progress Note for:: 03/12/17 Subjective:: Feeling better, less abd cramps coming, tolerating clears, awaiting KUB this am. Physical Exam Vital Signs: Temp Pulse Resp BP Pulse Ox 98.2 F 102 H 18 137/91 H 97 03/12/17 04:01 03/12/17 04:01 03/12/17 04:01 03/12/17 04:01 03/12/17 04:01 Intake & Output 03/11/17 03/12/17 03/13/17 06:59 06:59 06:59 Intake Total 4957 3094 Output Total 2600 1525 Balance 2357 1569 Results Laboratory Results: 03/12/17 07:20 03/11/17 03/11/17 03/12/17 08:20 10:00 07:20 WBC 7.1 8.2 RBC 4.13 4.33 Hgb 12.6 12.9 Hct 37.4 39.4 MCV 90 91 MCH 30.6 29.7 MCHC 33.8 32.7 RDW 16.0 H 15.9 H Plt Count 391 381 Seg Neutrophils % 56.8 60.4 Lymphocytes % 30.3 29.0 Monocytes % 11.1 8.9 Eosinophils % 1.1 1.1 Basophils % 0.7 0.6 Absolute Neutrophils 4.0 5.0 Absolute Lymphocytes 2.2 2.4 Absolute Monocytes 0.8 0.7 Absolute Eosinophils 0.1 0.1 Absolute Basophils 0.1 0.0 Sodium 142.2 Potassium 2.9 L* Chloride 105 Carbon Dioxide 30 Anion Gap 7 BUN 8 Creatinine 0.51 L Est GFR ( Amer) > 60 Est GFR (Non-Af Amer) > 60 Glucose 80 Calcium 8.0 L Impressions: Abdomen/Pelvis CT 03/09/17 00:00 IMPRESSION: High-grade distal small-bowel obstruction at the ileocolic anastomosis related to focal tumor mass at the staple line, 4.9 x 4.3 cm in size. Chest X-Ray 03/09/17 00:00 IMPRESSION: Uncomplicated NG tube.Moderate dilated stacked small bowel loops of the left upper abdomen consistent with abnormal CT from 1 day prior. Abdomen X-Ray 03/11/17 08:00 IMPRESSION: Persistent dilated small bowel loops worrisome for small bowel obstruction. Assessment & Plan - Diagnosis (1) Small bowel obstruction Is this a current diagnosis for this admission?: Yes Plan: Seems clinically better, awaiting KUB, further management per surgery (2) Colon cancer Qualifiers: Colon location: ascending Qualified Code(s): C18.9 - Malignant neoplasm of colon, unspecified Plan: Plan for continued therapy. If pt is doing well by tomorrow, would like to continue infusion tomorrow and then d/c by sunday. (3) Pain, neoplasm-related Is this a current diagnosis for this admission?: Yes Plan: Cont current pain management - Time Time Spent with patient: 15-24 minutes Critical Time spent with patient: 15-24 minutes - Inpatient Certification Based on my medical assessment, after consideration of the patient's comorbidities, presenting symptoms, or acuity I expect that the services needed warrant INPATIENT care.: Yes I certify that my determination is in accordance with my understanding of Medicare's requirements for reasonable and necessary INPATIENT services [42 CFR 412.3e].: Yes Medical Necessity: Need For IV Fluids, Need For Continuous Telemetry Monitoring , Need for Pain Control, Need for Surgery
[2017-03-12 07:58] LABS: ANION GAP 10 (5-19); BLOOD UREA NITROGEN 8 mg/dL (7-20); CALCIUM 8.4 mg/dL (8.4-10.2); CARBON DIOXIDE 27 mmol/L (22-30); CHLORIDE 106 mmol/L (98-107); CREATININE RESULT 0.54 mg/dL (0.52-1.25); GLUCOSE 94 mg/dL (75-110); MAGNESIUM 1.7 mg/dL (1.6-2.3); POTASSIUM 3.2 mmol/L (3.6-5.0); SODIUM 142.7 mmol/L (137-145)
[2017-03-12] MEDS: ENOXAPARIN SODIUM INJ 40 MG/0.4 ML DISP.SYRIN SUBCUT SCH (09:57)
--- NOTE | 2017-03-12 13:02 | PDOC PROGRESS REPORT ---
Subjective Subjective:: Patient reported episode of flatus; continues to have intermittent abdominal cramps; tolerated nasogastric clamping then became nauseated. G-tube hooked back up to suction. Physical Exam Vital Signs: Temp Pulse Resp BP Pulse Ox 98.2 F 112 H 18 137/91 H 97 03/12/17 04:01 03/12/17 07:00 03/12/17 04:01 03/12/17 04:01 03/12/17 04:01 Intake & Output 03/11/17 03/12/17 03/13/17 06:59 06:59 06:59 Intake Total 4957 3094 Output Total 2600 1525 Balance 2357 1569 General appearance: PRESENT: mild distress GI/Abdominal exam: PRESENT: other - Minimal distention, minimal tenderness; no peritoneal signs. Gastric tube draining partially digested food. Results Laboratory Results: 03/12/17 07:20 03/12/17 07:20 03/12/17 03/12/17 07:20 07:20 WBC 8.2 RBC 4.33 Hgb 12.9 Hct 39.4 MCV 91 MCH 29.7 MCHC 32.7 RDW 15.9 H Plt Count 381 Seg Neutrophils % 60.4 Lymphocytes % 29.0 Monocytes % 8.9 Eosinophils % 1.1 Basophils % 0.6 Absolute Neutrophils 5.0 Absolute Lymphocytes 2.4 Absolute Monocytes 0.7 Absolute Eosinophils 0.1 Absolute Basophils 0.0 Sodium 142.7 Potassium 3.2 L Chloride 106 Carbon Dioxide 27 Anion Gap 10 BUN 8 Creatinine 0.54 Est GFR ( Amer) > 60 Est GFR (Non-Af Amer) > 60 Glucose 94 Calcium 8.4 Magnesium 1.7 Impressions: Abdomen/Pelvis CT 03/09/17 00:00 IMPRESSION: High-grade distal small-bowel obstruction at the ileocolic anastomosis related to focal tumor mass at the staple line, 4.9 x 4.3 cm in size. Chest X-Ray 03/09/17 00:00 IMPRESSION: Uncomplicated NG tube.Moderate dilated stacked small bowel loops of the left upper abdomen consistent with abnormal CT from 1 day prior. Abdomen X-Ray 03/11/17 08:00 IMPRESSION: Persistent dilated small bowel loops worrisome for small bowel obstruction. Assessment & Plan - Diagnosis (1) Small bowel obstruction Is this a current diagnosis for this admission?: Yes Plan: Hospital day 3 for the 36-year-old Afro-Spanish female with static colon carcinoma status post right hemicolectomy, adjuvant chemotherapy: I reviewed patient's recent CT scan which demonstrates multiple intra-abdominal disease including 2 wounds in the right lobe of the liver, and a large area persisting disease the ileal transverse colon anastomosis. Small bowel loops dilated consistent with least partial obstruction. Of note, patient has some CT scan contrast in the transverse colon as seen on abdominal level days later. Plan: 1. Continue IV fluids and nasogastric decompression. 2. Exploratory laparotomy for relief of small bowel obstruction would be fraught with this appointment, specifically high risk of enterocutaneous fistula , possible open abdomen etc. 3. I spoke with Dr. Amaya hospitalist, who is agreed to transfer to his service. We will continue to follow the patient in consultation.
--- NOTE | 2017-03-12 14:43 | PDOC CONSULTATION ---
Consultation Consult Date: 03/12/17 Attending physician:: HAL DELANEY Consult reason:: Colon cancer History of Present Illness Admission Date/PCP: 03/09/17 23:11 JAKE PRECIADO MD History of Present Illness: 36-year-old female who has stage IV metastatic colon cancer who was recently hospitalized after a partial small bowel obstruction. She was sent home on and return the next day with worsening pain and obstruction. She was admitted by the surgical service and they have placed an NG tube and have been watching her conservatively. The patient also has been seen by oncology who is recommending starting chemotherapy tomorrow. Surgery has felt that there is no surgical intervention given her overall prognosis and has asked the medicine service to take over her care as the primary service. Past Medical History Cardiac Medical History: Reports: Hypertension Denies: Coronary Artery Disease, Myocardial Infarction Pulmonary Medical History: Reports: Asthma, Bronchitis Denies: Chronic Obstructive Pulmonary Disease (COPD), Pneumonia, Tuberculosis Neurological Medical History: Denies: Seizures Malignancy Medical History: Reports: Colorectal Cancer GI Medical History: Reports: Gastroesophageal Reflux Disease Musculoskeltal Medical History: Denies: Arthritis Psychiatric Medical History: Reports: Bipolar Disorder, Depression Hematology: Reports: Anemia Past Surgical History Past Surgical History: Reports: Cholecystectomy, Hysterectomy, Orthopedic Surgery - Right Femur fx with heaven placement, Other - Laparoscopic colectomy Social History Smoking Status: Current Every Day Smoker Frequency of Alcohol Use: None Hx Recreational Drug Use: No Drugs: None Hx Prescription Drug Abuse: No - Advance Directive Resuscitation Status: Full Code Family History Family History: DM, Hypertension, Other Parental Family History Reviewed: Yes Children Family History Reviewed: No Sibling(s) Family History Reviewed.: No Medication/Allergy Home Medications: Baclofen [Baclofen 10 mg Tablet] 10 mg PO BIDP PRN 03/06/17 Ondansetron HCl [Zofran 8 mg Tablet] 8 mg PO Q8HP PRN 03/06/17 Oxycodone HCl 40 mg PO Q6HP PRN 03/06/17 Fentanyl [Duragesic 50 Mcg/Hr Transdermal Patch] 1 each TD Q3D@1500 patch.td72 03/08/17 Spironolactone [Aldactone 25 mg Tablet] 25 mg PO DAILY MDD NOT STARTED YET 03/10 Allergies/Adverse Reactions: risperidone [From Risperdal] Allergy (Unknown, Verified 03/09/17 15:56) tramadol [Tramadol] Adverse Reaction (Intermediate, Verified 03/09/17 15:56) Nausea ibuprofen [Ibuprofen] Adverse Reaction (Mild, Verified 03/09/17 15:56) Nausea Review of Systems Constitutional: ABSENT: chills, fever(s), headache(s), weight gain, weight loss Eyes: ABSENT: visual disturbances Ears: ABSENT: hearing changes Cardiovascular: ABSENT: chest pain, dyspnea on exertion, edema, orthropnea, palpitations Respiratory: ABSENT: cough, hemoptysis Gastrointestinal: PRESENT: abdominal pain, bloating, nausea. ABSENT: vomiting Musculoskeletal: ABSENT: joint swelling Integumentary: ABSENT: rash, wounds Neurological: ABSENT: abnormal gait, abnormal speech, confusion, dizziness, focal weakness, syncope Psychiatric: ABSENT: anxiety, depression Endocrine: ABSENT: cold intolerance, heat intolerance, polydipsia, polyuria Hematologic/Lymphatic: ABSENT: easy bleeding, easy bruising Physical Exam Vital Signs: Temp Pulse Resp BP Pulse Ox 97.7 F 118 H 15 146/107 H 100 03/12/17 12:28 03/12/17 12:28 03/12/17 08:26 03/12/17 12:28 03/12/17 12:28 Intake & Output 03/11/17 03/12/17 03/13/17 06:59 06:59 06:59 Intake Total 4957 3094 Output Total 2600 1525 Balance 2357 1569 General appearance: PRESENT: no acute distress Head exam: PRESENT: atraumatic, normocephalic Eye exam: PRESENT: conjunctiva pink, EOMI, PERRLA. ABSENT: scleral icterus Ear exam: PRESENT: normal external ear exam Mouth exam: PRESENT: moist, tongue midline Neck exam: ABSENT: carotid bruit, JVD, lymphadenopathy, thyromegaly Respiratory exam: PRESENT: clear to auscultation colt. ABSENT: rales, rhonchi, wheezes Cardiovascular exam: PRESENT: RRR. ABSENT: diastolic murmur, rubs, systolic murmur GI/Abdominal exam: PRESENT: normal bowel sounds, soft, tenderness - Mild lower tenderness.. ABSENT: distended, guarding, mass, organolmegaly, rebound Rectal exam: PRESENT: deferred Extremities exam: ABSENT: calf tenderness, clubbing, pedal edema Neurological exam: PRESENT: alert, awake, oriented to person, oriented to place , oriented to time, oriented to situation, CN II-XII grossly intact. ABSENT: motor sensory deficit Psychiatric exam: PRESENT: appropriate affect Skin exam: PRESENT: dry, intact, warm. ABSENT: cyanosis, rash Results Laboratory Results: 03/12/17 07:20 03/12/17 07:20 03/12/17 03/12/17 07:20 07:20 WBC 8.2 RBC 4.33 Hgb 12.9 Hct 39.4 MCV 91 MCH 29.7 MCHC 32.7 RDW 15.9 H Plt Count 381 Seg Neutrophils % 60.4 Lymphocytes % 29.0 Monocytes % 8.9 Eosinophils % 1.1 Basophils % 0.6 Absolute Neutrophils 5.0 Absolute Lymphocytes 2.4 Absolute Monocytes 0.7 Absolute Eosinophils 0.1 Absolute Basophils 0.0 Sodium 142.7 Potassium 3.2 L Chloride 106 Carbon Dioxide 27 Anion Gap 10 BUN 8 Creatinine 0.54 Est GFR ( Amer) > 60 Est GFR (Non-Af Amer) > 60 Glucose 94 Calcium 8.4 Magnesium 1.7 Impressions: Abdomen/Pelvis CT 03/09/17 00:00 IMPRESSION: High-grade distal small-bowel obstruction at the ileocolic anastomosis related to focal tumor mass at the staple line, 4.9 x 4.3 cm in size. Chest X-Ray 03/09/17 00:00 IMPRESSION: Uncomplicated NG tube.Moderate dilated stacked small bowel loops of the left upper abdomen consistent with abnormal CT from 1 day prior. Abdomen X-Ray 03/11/17 08:00 IMPRESSION: Persistent dilated small bowel loops worrisome for small bowel obstruction. Assessment & Plan - Diagnosis (1) Colon cancer Qualifiers: Colon location: ascending Qualified Code(s): C18.9 - Malignant neoplasm of colon, unspecified Is this a current diagnosis for this admission?: Yes Plan: Patient has stage IV colon cancer. We will take over as the primary care service during this hospitalization. Oncology is considering starting her on chemo tomorrow. (2) Hypokalemia Is this a current diagnosis for this admission?: Yes Plan: We will check an aldosterone level and start on Spironolactone which she is able to take p.o. (3) Small bowel obstruction Is this a current diagnosis for this admission?: Yes Plan: Patient currently has an NG tube in place. (4) Anemia Is this a current diagnosis for this admission?: Yes - Time Time Spent: 50 to 70 Minutes - Inpatient Certification Medical Necessity: Need Close Monitoring Due to Risk of Patient Decompensation
[2017-03-13] MEDS: HYDROMORPHONE HCL INJ/PF 2 MG/ML AMPULE IV PRN ×11 (00:39→23:21)
[2017-03-13] MEDS: POTASSI CL 20 MEQ/D5-1/2NS 1L 1000 ML IV PRN (05:52)
--- NOTE | 2017-03-13 08:08 | PDOC PROGRESS REPORT ---
Subjective Progress Note for:: 03/13/17 Subjective:: Pt feeling better today, less abd cramping and pain. No BM yet. NG was clamped yesterday and unfortunately 400cc out. after 1 hr. So now back to suction, pt continued on clears. Reason For Visit: SMALL BOWEL OBSTRUCTION Physical Exam Vital Signs: Temp Pulse Resp BP Pulse Ox 97.3 F 107 H 19 131/85 H 96 03/13/17 03:29 03/13/17 03:29 03/13/17 03:29 03/13/17 03:29 03/13/17 03:29 Intake & Output 03/12/17 03/13/17 03/14/17 06:59 06:59 06:59 Intake Total 3094 2457 Output Total 1525 3925 Balance 1569 -1468 Weight 91.3 kg General appearance: PRESENT: no acute distress, well-developed, well-nourished Head exam: PRESENT: atraumatic, normocephalic Eye exam: PRESENT: conjunctiva pink, EOMI, PERRLA. ABSENT: scleral icterus Ear exam: PRESENT: normal external ear exam Mouth exam: PRESENT: moist, tongue midline Neck exam: ABSENT: carotid bruit, JVD, lymphadenopathy, thyromegaly Respiratory exam: PRESENT: clear to auscultation colt. ABSENT: rales, rhonchi, wheezes Cardiovascular exam: PRESENT: RRR. ABSENT: diastolic murmur, rubs, systolic murmur Pulses: PRESENT: normal dorsalis pedis pul Vascular exam: PRESENT: normal capillary refill GI/Abdominal exam: PRESENT: normal bowel sounds, soft. ABSENT: distended, guarding, mass, organolmegaly, rebound, tenderness Rectal exam: PRESENT: deferred Extremities exam: PRESENT: full ROM. ABSENT: calf tenderness, clubbing, pedal edema Neurological exam: PRESENT: alert, awake, oriented to person, oriented to place , oriented to time, oriented to situation, CN II-XII grossly intact. ABSENT: motor sensory deficit Psychiatric exam: PRESENT: appropriate affect, normal mood. ABSENT: homicidal ideation, suicidal ideation Skin exam: PRESENT: dry, intact, warm. ABSENT: cyanosis, rash Results Laboratory Results: 03/12/17 07:20 03/12/17 07:20 03/12/17 07:20 Sodium 142.7 Potassium 3.2 L Chloride 106 Carbon Dioxide 27 Anion Gap 10 BUN 8 Creatinine 0.54 Est GFR ( Amer) > 60 Est GFR (Non-Af Amer) > 60 Glucose 94 Calcium 8.4 Magnesium 1.7 Impressions: Abdomen/Pelvis CT 03/09/17 00:00 IMPRESSION: High-grade distal small-bowel obstruction at the ileocolic anastomosis related to focal tumor mass at the staple line, 4.9 x 4.3 cm in size. Chest X-Ray 03/09/17 00:00 IMPRESSION: Uncomplicated NG tube.Moderate dilated stacked small bowel loops of the left upper abdomen consistent with abnormal CT from 1 day prior. Abdomen X-Ray 03/11/17 08:00 IMPRESSION: Persistent dilated small bowel loops worrisome for small bowel obstruction. Assessment & Plan - Diagnosis (1) Small bowel obstruction Is this a current diagnosis for this admission?: Yes Plan: Continued, pt symptomatically better but still present, con't NGT to suction for now. Consider KUB today or tomorrow. (2) Colon cancer Qualifiers: Colon location: ascending Qualified Code(s): C18.9 - Malignant neoplasm of colon, unspecified Is this a current diagnosis for this admission?: Yes Plan: Plan for chemo/rx today, we will make arrangements, will need to monitor x 24- 48 hoours post chemo to see if obstruction better and pt can d/c home. As noted previously, had long discussion w/ pt and family, discussed different options including hospice given possible multilevel obstruction. Pt noted that she just started salvage chemo.rx regimen and wanted a chance to see if obstruction can be improved. We agreed to give it a chance given her age and good performance status. (3) Pain, neoplasm-related Is this a current diagnosis for this admission?: Yes Plan: Cont w/ pain control, seems appropriate. - Time Time Spent with patient: 15-24 minutes Critical Time spent with patient: 15-24 minutes - Inpatient Certification Based on my medical assessment, after consideration of the patient's comorbidities, presenting symptoms, or acuity I expect that the services needed warrant INPATIENT care.: Yes I certify that my determination is in accordance with my understanding of Medicare's requirements for reasonable and necessary INPATIENT services [42 CFR 412.3e].: Yes Medical Necessity: Need For IV Fluids, Need for Pain Control, Risk of Complication if Not Cared For in Hospital
[2017-03-13] MEDS ORDERED: NORMAL SALINE 250 ML IV PRN (09:32)
[2017-03-13] MEDS ORDERED: ONDANSETRON HCL/PF 16 MG, DEXAMETHASONE SOD PHOSPHATE 10 MG in NORMAL SALINE 50 ML IV PRN (09:33)
[2017-03-13] MEDS ORDERED: ATROPINE SULFATE INJ 0.4 MG/1 ML VIAL IV PRN (09:33)
[2017-03-13] MEDS ORDERED: NORMAL SALINE IV PRN ×3 (09:37→09:42)
[2017-03-13] MEDS ORDERED: IRINOTECAN HCL IV PRN (09:37)
[2017-03-13] MEDS ORDERED: LEUCOVORIN CALCIUM IV PRN (09:40)
[2017-03-13] MEDS ORDERED: BEVACIZUMAB IV PRN (09:42)
[2017-03-13] MEDS ORDERED: FLUOROURACIL IV PRN (09:43)
[2017-03-13] MEDS ORDERED: DISPOSABLE IV PRN (09:43)
[2017-03-13] MEDS ORDERED: FLUOROURACIL 4,656 MG in CONTAINER,EMPTY 1 EACH IV PRN (09:45)
[2017-03-13] MEDS ORDERED: FENTANYL 50 MCG/HR PATCH.TD72 TD SCH (10:00)
[2017-03-13] MEDS: ENOXAPARIN SODIUM INJ 40 MG/0.4 ML DISP.SYRIN SUBCUT SCH (10:28)
[2017-03-13] MEDS ORDERED: POTASSI CL 20 MEQ/50 ML RIDER 20 MEQ/50 ML RTUPB IV ONE ×2 (11:30→16:58)
--- NOTE | 2017-03-13 11:46 | PDOC PROGRESS REPORT ---
Subjective Progress Note for:: 03/13/17 Subjective:: This is a follow-up visit for small bowel obstruction secondary to metastatic colon cancer. Patient is not currently in any acute distress. No acute events overnight. Patient currently has no complaints. I did speak with Dr. Gilmore today. He plans to start chemotherapy this afternoon. The patient is in agreement with this. Reason For Visit: SMALL BOWEL OBSTRUCTION Physical Exam Vital Signs: Temp Pulse Resp BP Pulse Ox 97.3 F 107 H 19 131/85 H 96 03/13/17 03:29 03/13/17 03:29 03/13/17 03:29 03/13/17 03:29 03/13/17 03:29 Intake & Output 03/12/17 03/13/17 03/14/17 06:59 06:59 06:59 Intake Total 3094 3323 Output Total 1525 3925 Balance 1569 -602 Weight 91.3 kg GENERAL: This is a well-developed and appearing -[place]ian female resting in bed currently in no acute distress. HEENT: Normocephalic. Atraumatic. NG tube is in place and to wall suction. HEART: [Regular rate and rhythm. No murmurs, rubs or gallops.] LUNGS: [Clear to auscultation bilaterally with equal rise and fall of the chest. ] ABDOMEN: [Distended with hypoactive bowel sounds] EXTREMETIES: [No clubbing, cyanosis or edema. 2+ peripheral pulses bilaterally. ] NEURO: [Awake, alert and oriented 3. Cranial nerves II through XII are grossly intact.] Results Laboratory Results: 03/12/17 07:20 03/12/17 07:20 Impressions: Abdomen/Pelvis CT 03/09/17 00:00 IMPRESSION: High-grade distal small-bowel obstruction at the ileocolic anastomosis related to focal tumor mass at the staple line, 4.9 x 4.3 cm in size. Chest X-Ray 03/09/17 00:00 IMPRESSION: Uncomplicated NG tube.Moderate dilated stacked small bowel loops of the left upper abdomen consistent with abnormal CT from 1 day prior. Abdomen X-Ray 03/11/17 08:00 IMPRESSION: Persistent dilated small bowel loops worrisome for small bowel obstruction. Assessment & Plan - Diagnosis (1) Colon cancer Qualifiers: Colon location: ascending Qualified Code(s): C18.2 - Malignant neoplasm of ascending colon Is this a current diagnosis for this admission?: Yes Plan: Patient will begin chemotherapy again this afternoon. Dr. Gilmore following. (2) Hypokalemia Is this a current diagnosis for this admission?: Yes Plan: Replaced again this morning. (3) Small bowel obstruction Is this a current diagnosis for this admission?: Yes Plan: Secondary to underlying metastatic colon cancer. Plan will be to begin chemotherapy and see if we can relieve some of the obstruction. Repeat KUBs will be taken as indicated. If there is no improvement over the next couple of days end-of-life care will be revisited by the oncology service. (4) Tobacco abuse Plan: Cessation is advised. (5) Pain, neoplasm-related Is this a current diagnosis for this admission?: Yes Plan: Management by Dr. Gilmore - Time Time Spent with patient: 15-24 minutes - Inpatient Certification Medical Necessity: Need Close Monitoring Due to Risk of Patient Decompensation
[2017-03-13 14:33] LABS: ABSOLUTE EOSINOPHILS # (AUTO) 0.1 10^3/uL (0.0-0.6); ABSOLUTE LYMPHOCYTES (AUTO) 2.5 10^3/uL (0.5-4.7); ABSOLUTE MONOCYTES (AUTO) 0.8 10^3/uL (0.1-1.4); HEMOGLOBIN 13.6 g/dL (12.0-15.5)
[2017-03-13 15:03] LABS: ANION GAP 9 (5-19); BLOOD UREA NITROGEN 7 mg/dL (7-20); CALCIUM 8.3 mg/dL (8.4-10.2); CARBON DIOXIDE 27 mmol/L (22-30); CHLORIDE 105 mmol/L (98-107); CREATININE RESULT 0.55 mg/dL (0.52-1.25); GLUCOSE 72 mg/dL (75-110); POTASSIUM 3.5 mmol/L (3.6-5.0); SODIUM 141.2 mmol/L (137-145)
[2017-03-13 15:14] LABS: ABSOLUTE NEUT (AUTO) 5.6 10^3/uL (1.7-8.2); BASOPHILS % (AUTO) 0.4 % (0-2); EOSINOPHILS % (AUTO) 0.9 % (0-6); HGB HCT DIFFERENCE -0.2; LYMPHOCYTES % (AUTO) 27.7 % (13-45); MEAN CORPUSCULAR HEMOGLOBIN 30.4 pg (27.0-33.4); MEAN CORPUSCULAR HGB CONC 33.2 g/dL (32.0-36.0); MEAN CORPUSCULAR VOLUME 91 fl (80-97); MONOCYTES % (AUTO) 8.7 % (3-13); RED BLOOD COUNT 4.49 10^6/uL (3.72-5.28); RED CELL DISTRIBUTION WIDTH 16.4 % (11.5-14.0); SEGMENTED NEUTROPHILS % (AUTO) 62.3 % (42-78)
--- NOTE | 2017-03-13 20:05 | PDOC PROGRESS REPORT ---
Subjective Progress Note for:: 03/13/17 Subjective:: Mild epigastric pains Reason For Visit: SMALL BOWEL OBSTRUCTION Physical Exam Vital Signs: Temp Pulse Resp BP Pulse Ox 97.5 F 124 H 19 153/88 H 99 03/13/17 12:38 03/13/17 14:00 03/13/17 12:38 03/13/17 12:38 03/13/17 12:38 Intake & Output 03/12/17 03/13/17 03/14/17 06:59 06:59 06:59 Intake Total 3094 3323 1905 Output Total 1525 3925 1450 Balance 1569 -602 455 Weight 91.3 kg Exam: Abdomen is soft with minimal tenderness in the epigastric area NG tube drained almost clear yellow is fluid about 300 cc. This appears to be mostly ice chips. Patient did fast small amount of flatus yesterday but today has not had any. So we will keep the NG tube today. Tomorrow she is supposed to start chemotherapy Results Laboratory Results: 03/13/17 14:05 03/13/17 14:05 03/13/17 03/13/17 14:05 14:05 WBC 9.0 RBC 4.49 Hgb 13.6 Hct 41.0 MCV 91 MCH 30.4 MCHC 33.2 RDW 16.4 H Plt Count 334 Seg Neutrophils % 62.3 Lymphocytes % 27.7 Monocytes % 8.7 Eosinophils % 0.9 Basophils % 0.4 Absolute Neutrophils 5.6 Absolute Lymphocytes 2.5 Absolute Monocytes 0.8 Absolute Eosinophils 0.1 Absolute Basophils 0.0 Sodium 141.2 Potassium 3.5 L Chloride 105 Carbon Dioxide 27 Anion Gap 9 BUN 7 Creatinine 0.55 Est GFR ( Amer) > 60 Est GFR (Non-Af Amer) > 60 Glucose 72 L Calcium 8.3 L Impressions: Abdomen/Pelvis CT 03/09/17 00:00 IMPRESSION: High-grade distal small-bowel obstruction at the ileocolic anastomosis related to focal tumor mass at the staple line, 4.9 x 4.3 cm in size. Chest X-Ray 03/09/17 00:00 IMPRESSION: Uncomplicated NG tube.Moderate dilated stacked small bowel loops of the left upper abdomen consistent with abnormal CT from 1 day prior. Abdomen X-Ray 03/11/17 08:00 IMPRESSION: Persistent dilated small bowel loops worrisome for small bowel obstruction. Assessment & Plan - Time Time Spent with patient: 15-24 minutes - Plan Summary Plan Summary: #1 keep NG tube until definitely continues to pass flatus. 2. Patient also to have chemotherapy tomorrow and might be better to keep the NG tube for now because of the possible risk of nausea vomiting.
[2017-03-14] MEDS: HYDROMORPHONE HCL INJ/PF 2 MG/ML AMPULE IV PRN ×8 (02:25→22:57)
[2017-03-14 04:51] LABS: ANION GAP 5 (5-19); BLOOD UREA NITROGEN 8 mg/dL (7-20); CARBON DIOXIDE 28 mmol/L (22-30); CHLORIDE 106 mmol/L (98-107); GLUCOSE 83 mg/dL (75-110); POTASSIUM 3.3 mmol/L (3.6-5.0); SODIUM 138.7 mmol/L (137-145)
[2017-03-14 05:02] LABS: ABSOLUTE LYMPHOCYTES (AUTO) 2.4 10^3/uL (0.5-4.7); ABSOLUTE MONOCYTES (AUTO) 0.6 10^3/uL (0.1-1.4); ABSOLUTE NEUT (AUTO) 4.5 10^3/uL (1.7-8.2); BASOPHILS % (AUTO) 0.3 % (0-2); EOSINOPHILS % (AUTO) 0.1 % (0-6); HEMATOCRIT 34.1 % (36.0-47.0); HGB HCT DIFFERENCE 0.4; LYMPHOCYTES % (AUTO) 32.1 % (13-45); MEAN CORPUSCULAR HEMOGLOBIN 30.7 pg (27.0-33.4); MEAN CORPUSCULAR HGB CONC 33.7 g/dL (32.0-36.0); MEAN CORPUSCULAR VOLUME 91 fl (80-97); MONOCYTES % (AUTO) 7.7 % (3-13); RED BLOOD COUNT 3.75 10^6/uL (3.72-5.28); RED CELL DISTRIBUTION WIDTH 15.6 % (11.5-14.0); SEGMENTED NEUTROPHILS % (AUTO) 59.8 % (42-78); WHITE BLOOD COUNT 7.6 10^3/uL (4.0-10.5)
[2017-03-14 05:13] LABS: HEMOGLOBIN 11.5 g/dL (12.0-15.5)
--- NOTE | 2017-03-14 08:27 | PDOC PROGRESS REPORT ---
Subjective Progress Note for:: 03/14/17 Subjective:: No acute events overnight, chemo was relatively uncomplicated Reason For Visit: SMALL BOWEL OBSTRUCTION Physical Exam Vital Signs: Temp Pulse Resp BP Pulse Ox 98.2 F 87 19 141/96 H 97 03/14/17 04:00 03/14/17 04:00 03/14/17 04:00 03/14/17 04:00 03/14/17 04:00 Intake & Output 03/13/17 03/14/17 03/15/17 06:59 06:59 06:59 Intake Total 3323 2985 Output Total 3925 9530 Balance -602 -165 Weight 91.3 kg General appearance: PRESENT: no acute distress, well-developed, well-nourished Head exam: PRESENT: atraumatic, normocephalic Eye exam: PRESENT: conjunctiva pink, EOMI, PERRLA. ABSENT: scleral icterus Ear exam: PRESENT: normal external ear exam Mouth exam: PRESENT: moist, tongue midline Neck exam: ABSENT: carotid bruit, JVD, lymphadenopathy, thyromegaly Respiratory exam: PRESENT: clear to auscultation colt. ABSENT: rales, rhonchi, wheezes Cardiovascular exam: PRESENT: RRR. ABSENT: diastolic murmur, rubs, systolic murmur Pulses: PRESENT: normal dorsalis pedis pul Vascular exam: PRESENT: normal capillary refill GI/Abdominal exam: PRESENT: normal bowel sounds, soft. ABSENT: distended, guarding, mass, organolmegaly, rebound, tenderness Rectal exam: PRESENT: deferred Extremities exam: PRESENT: full ROM. ABSENT: calf tenderness, clubbing, pedal edema Neurological exam: PRESENT: alert, awake, oriented to person, oriented to place , oriented to time, oriented to situation, CN II-XII grossly intact. ABSENT: motor sensory deficit Psychiatric exam: PRESENT: appropriate affect, normal mood. ABSENT: homicidal ideation, suicidal ideation Skin exam: PRESENT: dry, intact, warm. ABSENT: cyanosis, rash Results Laboratory Results: 03/14/17 04:15 03/14/17 04:15 03/13/17 03/13/17 03/14/17 14:05 14:05 04:15 WBC 9.0 RBC 4.49 Hgb 13.6 Hct 41.0 MCV 91 MCH 30.4 MCHC 33.2 RDW 16.4 H Plt Count 334 Seg Neutrophils % 62.3 Lymphocytes % 27.7 Monocytes % 8.7 Eosinophils % 0.9 Basophils % 0.4 Absolute Neutrophils 5.6 Absolute Lymphocytes 2.5 Absolute Monocytes 0.8 Absolute Eosinophils 0.1 Absolute Basophils 0.0 Sodium 141.2 Potassium 3.5 L Chloride 105 Carbon Dioxide 27 Anion Gap 9 BUN 7 Creatinine 0.55 Est GFR ( Amer) > 60 Est GFR (Non-Af Amer) > 60 Glucose 72 L Calcium 8.3 L Magnesium 1.6 03/14/17 03/14/17 04:15 04:15 WBC 7.6 RBC 3.75 Hgb 11.5 L D Hct 34.1 L MCV 91 MCH 30.7 MCHC 33.7 RDW 15.6 H Plt Count 292 Seg Neutrophils % 59.8 Lymphocytes % 32.1 Monocytes % 7.7 Eosinophils % 0.1 Basophils % 0.3 Absolute Neutrophils 4.5 Absolute Lymphocytes 2.4 Absolute Monocytes 0.6 Absolute Eosinophils 0.0 Absolute Basophils 0.0 Sodium 138.7 Potassium 3.3 L Chloride 106 Carbon Dioxide 28 Anion Gap 5 BUN 8 Creatinine 0.60 Est GFR ( Amer) > 60 Est GFR (Non-Af Amer) > 60 Glucose 83 Calcium 8.0 L Magnesium Impressions: Abdomen/Pelvis CT 03/09/17 00:00 IMPRESSION: High-grade distal small-bowel obstruction at the ileocolic anastomosis related to focal tumor mass at the staple line, 4.9 x 4.3 cm in size. Chest X-Ray 03/09/17 00:00 IMPRESSION: Uncomplicated NG tube.Moderate dilated stacked small bowel loops of the left upper abdomen consistent with abnormal CT from 1 day prior. Abdomen X-Ray 03/11/17 08:00 IMPRESSION: Persistent dilated small bowel loops worrisome for small bowel obstruction. Assessment & Plan - Diagnosis (1) Small bowel obstruction Is this a current diagnosis for this admission?: Yes Plan: Continue with NG tube to suction today, monitor for another 24 hours, KUB ordered this morning, tomorrow we should try and clamp the tube and see if anything passes. (2) Colon cancer Qualifiers: Colon location: ascending Qualified Code(s): C18.2 - Malignant neoplasm of ascending colon Is this a current diagnosis for this admission?: Yes Plan: Chemotherapy given yesterday, pump will be removed tomorrow (3) Pain, neoplasm-related Is this a current diagnosis for this admission?: Yes Plan: Continue with current pain control
[2017-03-14] MEDS: ENOXAPARIN SODIUM INJ 40 MG/0.4 ML DISP.SYRIN SUBCUT SCH (10:23)
--- NOTE | 2017-03-14 10:58 | RADIOLOGY REPORT (SQ) ---
EXAM DESCRIPTION: KUB/ABDOMEN (SINGLE VIEW) COMPLETED DATE/TIME: 03/14/2017 10:48 am REASON FOR STUDY: BOWEL OBSTRUCTION COMPARISON: None. NUMBER OF VIEWS: One view. TECHNIQUE: Supine radiographic image of the abdomen acquired. LIMITATIONS: None. FINDINGS: BOWEL GAS PATTERN: There are some dilated loops of small bowel centrally. Contrast is in the left colon. CALCIFICATIONS: No suspicious calcifications. SOFT TISSUES: No gross mass or suggestion of organomegaly. HARDWARE: None in the abdomen. BONES: No acute fracture. No worrisome bone lesions. OTHER: No other significant finding. IMPRESSION: Cannot exclude a partial small bowel obstruction at this point. The contrast given for the CT has progressed to the left colon. TECHNICAL DOCUMENTATION: JOB ID: [id number] [employer]- All Rights Reserved
[2017-03-14] MEDS ORDERED: NA PHOS,M-B/NA PHOS,DI-BA (ADULT) 133 ML ENEMA PR ONE (11:00)
[2017-03-14] MEDS: FENTANYL 75 MCG/HR PATCH.TD72 TD SCH (14:00)
--- NOTE | 2017-03-14 19:25 | PDOC PROGRESS REPORT ---
Subjective Progress Note for:: 03/14/17 Reason For Visit: SMALL BOWEL OBSTRUCTION Physical Exam Vital Signs: Temp Pulse Resp BP Pulse Ox 98.1 F 109 H 16 124/76 100 03/14/17 08:10 03/14/17 14:00 03/14/17 08:10 03/14/17 08:10 03/14/17 08:10 Intake & Output 03/13/17 03/14/17 03/15/17 06:59 06:59 06:59 Intake Total 3323 2985 200 Output Total 3925 3150 400 Balance -602 -165 -200 Weight 91.3 kg Exam: Abdomen is soft with practically no tenderness. NG tube is in place and has been draining only a couple 100 cc of slightly cloudy yellowish fluid. He just she just had a chemotherapy without no apparent untoward events according to her oncologist. A KUB was done today and showed contrast is in the large intestine but there is still slightly dilated loops of small bowel and question of partial obstruction. I agree with the plan suggested by by her oncologist to may be clamped the NG tube tomorrow morning and see if she tolerates it well. She denies any passage of flatus today Results Laboratory Results: 03/14/17 04:15 03/14/17 04:15 03/14/17 03/14/17 03/14/17 04:15 04:15 04:15 WBC 7.6 RBC 3.75 Hgb 11.5 L D Hct 34.1 L MCV 91 MCH 30.7 MCHC 33.7 RDW 15.6 H Plt Count 292 Seg Neutrophils % 59.8 Lymphocytes % 32.1 Monocytes % 7.7 Eosinophils % 0.1 Basophils % 0.3 Absolute Neutrophils 4.5 Absolute Lymphocytes 2.4 Absolute Monocytes 0.6 Absolute Eosinophils 0.0 Absolute Basophils 0.0 Sodium 138.7 Potassium 3.3 L Chloride 106 Carbon Dioxide 28 Anion Gap 5 BUN 8 Creatinine 0.60 Est GFR ( Amer) > 60 Est GFR (Non-Af Amer) > 60 Glucose 83 Calcium 8.0 L Magnesium 1.6 Impressions: Abdomen/Pelvis CT 03/09/17 00:00 IMPRESSION: High-grade distal small-bowel obstruction at the ileocolic anastomosis related to focal tumor mass at the staple line, 4.9 x 4.3 cm in size. Chest X-Ray 03/09/17 00:00 IMPRESSION: Uncomplicated NG tube.Moderate dilated stacked small bowel loops of the left upper abdomen consistent with abnormal CT from 1 day prior. Abdomen X-Ray 03/11/17 08:00 IMPRESSION: Persistent dilated small bowel loops worrisome for small bowel obstruction. KUB X-Ray 03/14/17 00:00 IMPRESSION: Cannot exclude a partial small bowel obstruction at this point. The contrast given for the CT has progressed to the left colon. Assessment & Plan - Time Time Spent with patient: 15-24 minutes - Plan Summary Plan Summary: I agree with her oncologist to clamp the NG tube tomorrow and see if she tolerates it. Will follow her up tomorrow. May need to check her electrolytes make sure her potassium is normal
--- NOTE | 2017-03-14 19:55 | Progress Note ---
Provider Note Provider Note: Is a follow-up visit for metastatic colon cancer. The patient began chemotherapy yesterday. I came by to see her earlier today but she was out of her room. She had been given permission to leave the floor and take walks outside. I have reviewed Dr. Gilmore and Dr. Ghotra's notes. The patient's labs of have also been reviewed. Her potassium is actively being placed. Plan of care is to clamp the tube tomorrow to see how the patient does. KUB was reviewed and still show some evidence of small bowel obstruction. Will see tomorrow.
[2017-03-14] MEDS ORDERED: POTASSI CL 20 MEQ/50 ML RIDER 20 MEQ/50 ML RTUPB IV SCH (20:30)
[2017-03-14] MEDS ORDERED: POTASSIUM CHLORIDE 20 MEQ/15 ML UDCUP PO ONE (21:00)
[2017-03-14] MEDS: ONDANSETRON HCL INJ/PF 4 MG/2 ML SDV IV PRN (23:24)
[2017-03-15] MEDS: HYDROMORPHONE HCL INJ/PF 2 MG/ML AMPULE IV PRN ×10 (01:47→22:42)
--- NOTE | 2017-03-15 09:05 | PDOC PROGRESS REPORT ---
Subjective Progress Note for:: 03/15/17 Subjective:: Having less nausea, seemingly better today, KUB slightly better. Reason For Visit: SMALL BOWEL OBSTRUCTION Physical Exam Vital Signs: Temp Pulse Resp BP Pulse Ox 98.1 F 94 14 143/90 H 99 03/15/17 03:03 03/15/17 03:03 03/15/17 03:03 03/15/17 03:03 03/15/17 03:03 Intake & Output 03/14/17 03/15/17 03/16/17 06:59 06:59 06:59 Intake Total 2985 1000 Output Total 3150 400 Balance -165 600 Weight 91.4 kg Results Laboratory Results: 03/14/17 04:15 03/14/17 04:15 Impressions: Abdomen/Pelvis CT 03/09/17 00:00 IMPRESSION: High-grade distal small-bowel obstruction at the ileocolic anastomosis related to focal tumor mass at the staple line, 4.9 x 4.3 cm in size. Chest X-Ray 03/09/17 00:00 IMPRESSION: Uncomplicated NG tube.Moderate dilated stacked small bowel loops of the left upper abdomen consistent with abnormal CT from 1 day prior. Abdomen X-Ray 03/11/17 08:00 IMPRESSION: Persistent dilated small bowel loops worrisome for small bowel obstruction. KUB X-Ray 03/14/17 00:00 IMPRESSION: Cannot exclude a partial small bowel obstruction at this point. The contrast given for the CT has progressed to the left colon. Assessment & Plan - Diagnosis (1) Small bowel obstruction Is this a current diagnosis for this admission?: Yes Plan: Plan to clamp NG tube today, give clears and see if that does pass, if it does pass will advance to full liquid diet. Yesterday had a long conversation with her significant other, she seems to understand the situation, but unfortunately the patient as well as the sister does not seem to be as accepting of the situation, to that extent will need to have further conversations in the future. (2) Colon cancer Qualifiers: Colon location: ascending Qualified Code(s): C18.2 - Malignant neoplasm of ascending colon Is this a current diagnosis for this admission?: Yes Plan: Chemotherapy given, pump off today (3) Pain, neoplasm-related Is this a current diagnosis for this admission?: Yes Plan: Continue current pain control
[2017-03-15] MEDS: ENOXAPARIN SODIUM INJ 40 MG/0.4 ML DISP.SYRIN SUBCUT SCH (10:21)
[2017-03-15 13:05] LABS: ABSOLUTE BASOPHILS # (AUTO) 0.1 10^3/uL (0.0-0.2); ABSOLUTE EOSINOPHILS # (AUTO) 0.1 10^3/uL (0.0-0.6); ABSOLUTE LYMPHOCYTES (AUTO) 2.4 10^3/uL (0.5-4.7); ABSOLUTE MONOCYTES (AUTO) 0.2 10^3/uL (0.1-1.4); ABSOLUTE NEUT (AUTO) 5.1 10^3/uL (1.7-8.2); EOSINOPHILS % (AUTO) 0.8 % (0-6); HEMATOCRIT 36.7 % (36.0-47.0); HEMOGLOBIN 12.4 g/dL (12.0-15.5); HGB HCT DIFFERENCE 0.5; LYMPHOCYTES % (AUTO) 31.2 % (13-45); MEAN CORPUSCULAR HEMOGLOBIN 30.6 pg (27.0-33.4); MEAN CORPUSCULAR HGB CONC 33.9 g/dL (32.0-36.0); MEAN CORPUSCULAR VOLUME 90 fl (80-97); MONOCYTES % (AUTO) 2.1 % (3-13); RED BLOOD COUNT 4.06 10^6/uL (3.72-5.28); RED CELL DISTRIBUTION WIDTH 16.3 % (11.5-14.0); SEGMENTED NEUTROPHILS % (AUTO) 64.9 % (42-78); WHITE BLOOD COUNT 7.8 10^3/uL (4.0-10.5)
[2017-03-15 14:02] LABS: ANION GAP 10 (5-19); BLOOD UREA NITROGEN 8 mg/dL (7-20); CALCIUM 8.2 mg/dL (8.4-10.2); CARBON DIOXIDE 29 mmol/L (22-30); CHLORIDE 103 mmol/L (98-107); CREATININE RESULT 0.65 mg/dL (0.52-1.25); GLUCOSE 74 mg/dL (75-110); POTASSIUM 3.2 mmol/L (3.6-5.0); SODIUM 141.5 mmol/L (137-145)
--- NOTE | 2017-03-15 15:14 | Progress Note ---
Provider Note Provider Note: I stop by the room on 2 separate occasions to evaluate the patient and both time she was off the floor. Apparently she prefers to be outside and spends most of the day with Dr. Rodriguez permission. Nursing reports no nausea and intends to clamp the NG tube when she returns the floor. I spoke with Dr. Ghotra who felt like she was progressing enough to remove the NG tube if she tolerated clear liquid diets while it was clamped. I see her potassium remains low in spite of frequent K riders likely related to GI losses from the NG tube. Her magnesium is also borderline low so will replete both again today by the IV route so as not to exacerbate any nausea and confound the clinical picture any further and repeat her laboratory work in the morning.
[2017-03-15] MEDS ORDERED: MAGNESIUM SULFATE/D5W 1 GM/100 ML RTUPB IV SCH (15:15)
[2017-03-15] MEDS: POTASSI CL 20 MEQ/50 ML RIDER 20 MEQ/50 ML RTUPB IV SCH ×2 (17:09→20:19)
[2017-03-15] MEDS: MAGNESIUM SULFATE/D5W 1 GM/100 ML RTUPB IV SCH (23:22)
[2017-03-16] MEDS: MAGNESIUM SULFATE/D5W 1 GM/100 ML RTUPB IV SCH (00:29)
[2017-03-16] MEDS: HYDROMORPHONE HCL INJ/PF 2 MG/ML AMPULE IV PRN ×9 (02:07→22:11)
[2017-03-16] MEDS: POTASSI CL 20 MEQ/D5-1/2NS 1L 1000 ML IV PRN ×3 (02:07→19:47)
--- NOTE | 2017-03-16 02:36 | PDOC PROGRESS REPORT ---
Subjective Progress Note for:: 03/15/17 Subjective:: epigastric pains Reason For Visit: SMALL BOWEL OBSTRUCTION Physical Exam Vital Signs: Temp Pulse Resp BP Pulse Ox 98.6 F 96 16 135/75 H 94 03/15/17 23:21 03/16/17 02:00 03/15/17 23:21 03/15/17 23:21 03/15/17 23:21 Intake & Output 03/14/17 03/15/17 03/16/17 06:59 06:59 06:59 Intake Total 2985 1000 1340 Output Total 3150 400 300 Balance -878 857 2776 Weight 91.4 kg Exam: NGT clamped. Tolerating but still c/o mild epigastric pains. Abd is soft with mild epigastric tenderness + flatus. Possible D/C NGT on 03/16/17 Results Laboratory Results: 03/15/17 12:51 03/15/17 12:51 03/15/17 03/15/17 12:51 12:51 WBC 7.8 RBC 4.06 Hgb 12.4 Hct 36.7 MCV 90 MCH 30.6 MCHC 33.9 RDW 16.3 H Plt Count 301 Seg Neutrophils % 64.9 Lymphocytes % 31.2 Monocytes % 2.1 L Eosinophils % 0.8 Basophils % 1.0 Absolute Neutrophils 5.1 Absolute Lymphocytes 2.4 Absolute Monocytes 0.2 Absolute Eosinophils 0.1 Absolute Basophils 0.1 Sodium 141.5 Potassium 3.2 L Chloride 103 Carbon Dioxide 29 Anion Gap 10 BUN 8 Creatinine 0.65 Est GFR ( Amer) > 60 Est GFR (Non-Af Amer) > 60 Glucose 74 L Calcium 8.2 L Impressions: Abdomen/Pelvis CT 03/09/17 00:00 IMPRESSION: High-grade distal small-bowel obstruction at the ileocolic anastomosis related to focal tumor mass at the staple line, 4.9 x 4.3 cm in size. Chest X-Ray 03/09/17 00:00 IMPRESSION: Uncomplicated NG tube.Moderate dilated stacked small bowel loops of the left upper abdomen consistent with abnormal CT from 1 day prior. Abdomen X-Ray 03/11/17 08:00 IMPRESSION: Persistent dilated small bowel loops worrisome for small bowel obstruction. KUB X-Ray 03/14/17 00:00 IMPRESSION: Cannot exclude a partial small bowel obstruction at this point. The contrast given for the CT has progressed to the left colon.
[2017-03-16 03:50] LABS: ABSOLUTE BASOPHILS # (AUTO) 0.1 10^3/uL (0.0-0.2); ABSOLUTE EOSINOPHILS # (AUTO) 0.1 10^3/uL (0.0-0.6); ABSOLUTE LYMPHOCYTES (AUTO) 1.6 10^3/uL (0.5-4.7); ABSOLUTE MONOCYTES (AUTO) 0.1 10^3/uL (0.1-1.4); ABSOLUTE NEUT (AUTO) 3.6 10^3/uL (1.7-8.2); BASOPHILS % (AUTO) 1.3 % (0-2); EOSINOPHILS % (AUTO) 1.2 % (0-6); HEMATOCRIT 33.9 % (36.0-47.0); HEMOGLOBIN 11.6 g/dL (12.0-15.5); HGB HCT DIFFERENCE 0.9; LYMPHOCYTES % (AUTO) 29.9 % (13-45); MEAN CORPUSCULAR HEMOGLOBIN 30.8 pg (27.0-33.4); MEAN CORPUSCULAR HGB CONC 34.4 g/dL (32.0-36.0); MEAN CORPUSCULAR VOLUME 90 fl (80-97); RED BLOOD COUNT 3.79 10^6/uL (3.72-5.28); RED CELL DISTRIBUTION WIDTH 15.8 % (11.5-14.0); SEGMENTED NEUTROPHILS % (AUTO) 65.6 % (42-78); WHITE BLOOD COUNT 5.5 10^3/uL (4.0-10.5)
[2017-03-16 04:09] LABS: ANION GAP 7 (5-19); BLOOD UREA NITROGEN 6 mg/dL (7-20); CALCIUM 7.9 mg/dL (8.4-10.2); CARBON DIOXIDE 28 mmol/L (22-30); CHLORIDE 107 mmol/L (98-107); CREATININE RESULT 0.54 mg/dL (0.52-1.25); GLUCOSE 91 mg/dL (75-110); POTASSIUM 3.1 mmol/L (3.6-5.0)
[2017-03-16] MEDS: ENOXAPARIN SODIUM INJ 40 MG/0.4 ML DISP.SYRIN SUBCUT SCH (09:10)
--- NOTE | 2017-03-16 11:30 | PDOC PROGRESS REPORT ---
Subjective Progress Note for:: 03/16/17 Subjective:: Pt doing very well today, yesterday tube clamped, tolerated full liquid well, NGT placed to suction few times thru out the day and not much output. Will advance to regular diet today Reason For Visit: SMALL BOWEL OBSTRUCTION Physical Exam Vital Signs: Temp Pulse Resp BP Pulse Ox 97.7 F 96 16 136/92 H 98 03/16/17 03:16 03/16/17 07:00 03/16/17 03:16 03/16/17 03:16 03/16/17 03:16 Intake & Output 03/15/17 03/16/17 03/17/17 06:59 06:59 06:59 Intake Total 1000 1580 Output Total 400 650 Balance 600 930 Weight 91.4 kg General appearance: PRESENT: no acute distress, well-developed, well-nourished Head exam: PRESENT: atraumatic, normocephalic Eye exam: PRESENT: conjunctiva pink, EOMI, PERRLA. ABSENT: scleral icterus Ear exam: PRESENT: normal external ear exam Mouth exam: PRESENT: moist, tongue midline Neck exam: ABSENT: carotid bruit, JVD, lymphadenopathy, thyromegaly Respiratory exam: PRESENT: clear to auscultation colt. ABSENT: rales, rhonchi, wheezes Cardiovascular exam: PRESENT: RRR. ABSENT: diastolic murmur, rubs, systolic murmur Pulses: PRESENT: normal dorsalis pedis pul Vascular exam: PRESENT: normal capillary refill GI/Abdominal exam: PRESENT: normal bowel sounds, soft. ABSENT: distended, guarding, mass, organolmegaly, rebound, tenderness Rectal exam: PRESENT: deferred Extremities exam: PRESENT: full ROM. ABSENT: calf tenderness, clubbing, pedal edema Neurological exam: PRESENT: alert, awake, oriented to person, oriented to place , oriented to time, oriented to situation, CN II-XII grossly intact. ABSENT: motor sensory deficit Psychiatric exam: PRESENT: appropriate affect, normal mood. ABSENT: homicidal ideation, suicidal ideation Skin exam: PRESENT: dry, intact, warm. ABSENT: cyanosis, rash Results Laboratory Results: 03/16/17 03:40 03/16/17 03:40 03/15/17 03/15/17 03/16/17 12:51 12:51 03:40 WBC 7.8 RBC 4.06 Hgb 12.4 Hct 36.7 MCV 90 MCH 30.6 MCHC 33.9 RDW 16.3 H Plt Count 301 Seg Neutrophils % 64.9 Lymphocytes % 31.2 Monocytes % 2.1 L Eosinophils % 0.8 Basophils % 1.0 Absolute Neutrophils 5.1 Absolute Lymphocytes 2.4 Absolute Monocytes 0.2 Absolute Eosinophils 0.1 Absolute Basophils 0.1 Sodium 141.5 142.0 Potassium 3.2 L 3.1 L Chloride 103 107 Carbon Dioxide 29 28 Anion Gap 10 7 BUN 8 6 L Creatinine 0.65 0.54 Est GFR ( Amer) > 60 > 60 Est GFR (Non-Af Amer) > 60 > 60 Glucose 74 L 91 Calcium 8.2 L 7.9 L 03/16/17 03:40 WBC 5.5 RBC 3.79 Hgb 11.6 L Hct 33.9 L MCV 90 MCH 30.8 MCHC 34.4 RDW 15.8 H Plt Count 276 Seg Neutrophils % 65.6 Lymphocytes % 29.9 Monocytes % 2.0 L Eosinophils % 1.2 Basophils % 1.3 Absolute Neutrophils 3.6 Absolute Lymphocytes 1.6 Absolute Monocytes 0.1 Absolute Eosinophils 0.1 Absolute Basophils 0.1 Sodium Potassium Chloride Carbon Dioxide Anion Gap BUN Creatinine Est GFR ( Amer) Est GFR (Non-Af Amer) Glucose Calcium Impressions: Abdomen/Pelvis CT 03/09/17 00:00 IMPRESSION: High-grade distal small-bowel obstruction at the ileocolic anastomosis related to focal tumor mass at the staple line, 4.9 x 4.3 cm in size. Chest X-Ray 03/09/17 00:00 IMPRESSION: Uncomplicated NG tube.Moderate dilated stacked small bowel loops of the left upper abdomen consistent with abnormal CT from 1 day prior. Abdomen X-Ray 03/11/17 08:00 IMPRESSION: Persistent dilated small bowel loops worrisome for small bowel obstruction. KUB X-Ray 03/14/17 00:00 IMPRESSION: Cannot exclude a partial small bowel obstruction at this point. The contrast given for the CT has progressed to the left colon. Assessment & Plan - Diagnosis (1) Small bowel obstruction Is this a current diagnosis for this admission?: Yes Plan: Seems much better, advance diet. If tolerated x 24 hours then d/c NGT and can d/ c home by tomorrow. (2) Colon cancer Qualifiers: Colon location: ascending Qualified Code(s): C18.2 - Malignant neoplasm of ascending colon Is this a current diagnosis for this admission?: Yes Plan: Chemo given this week, next one in 10 days, will need cbc in office next week (3) Pain, neoplasm-related Is this a current diagnosis for this admission?: Yes Plan: Pt given rx for dilaudid and fentanyl so if d/c ready by tomorrow, should not need pain meds rx - Time Time Spent with patient: 35 or more minutes Anticipated discharge: Home Within: within 24 hours
--- NOTE | 2017-03-16 13:32 | PDOC PROGRESS REPORT ---
Subjective Progress Note for:: 03/16/17 Subjective:: Patient has been passing gas and moving her bowels Reason For Visit: SMALL BOWEL OBSTRUCTION Physical Exam Vital Signs: Temp Pulse Resp BP Pulse Ox 98.2 F 97 12 142/94 H 99 03/16/17 12:14 03/16/17 12:14 03/16/17 12:14 03/16/17 12:14 03/16/17 12:14 Intake & Output 03/15/17 03/16/17 03/17/17 06:59 06:59 06:59 Intake Total 1000 1580 Output Total 400 650 Balance 600 930 Weight 91.4 kg General appearance: PRESENT: no acute distress Respiratory exam: PRESENT: clear to auscultation colt Cardiovascular exam: PRESENT: RRR GI/Abdominal exam: PRESENT: normal bowel sounds, soft. ABSENT: guarding, rebound, tenderness Results Laboratory Results: 03/16/17 03:40 03/16/17 03:40 03/15/17 03/16/17 03/16/17 12:51 03:40 03:40 WBC 5.5 RBC 3.79 Hgb 11.6 L Hct 33.9 L MCV 90 MCH 30.8 MCHC 34.4 RDW 15.8 H Plt Count 276 Seg Neutrophils % 65.6 Lymphocytes % 29.9 Monocytes % 2.0 L Eosinophils % 1.2 Basophils % 1.3 Absolute Neutrophils 3.6 Absolute Lymphocytes 1.6 Absolute Monocytes 0.1 Absolute Eosinophils 0.1 Absolute Basophils 0.1 Sodium 141.5 142.0 Potassium 3.2 L 3.1 L Chloride 103 107 Carbon Dioxide 29 28 Anion Gap 10 7 BUN 8 6 L Creatinine 0.65 0.54 Est GFR ( Amer) > 60 > 60 Est GFR (Non-Af Amer) > 60 > 60 Glucose 74 L 91 Calcium 8.2 L 7.9 L Impressions: Abdomen/Pelvis CT 03/09/17 00:00 IMPRESSION: High-grade distal small-bowel obstruction at the ileocolic anastomosis related to focal tumor mass at the staple line, 4.9 x 4.3 cm in size. Chest X-Ray 03/09/17 00:00 IMPRESSION: Uncomplicated NG tube.Moderate dilated stacked small bowel loops of the left upper abdomen consistent with abnormal CT from 1 day prior. Abdomen X-Ray 03/11/17 08:00 IMPRESSION: Persistent dilated small bowel loops worrisome for small bowel obstruction. KUB X-Ray 03/14/17 00:00 IMPRESSION: Cannot exclude a partial small bowel obstruction at this point. The contrast given for the CT has progressed to the left colon. Assessment & Plan - Diagnosis (1) Small bowel obstruction Is this a current diagnosis for this admission?: Yes - Plan Summary Plan Summary: The patient states that her oncologist wants her to retain the NG tube, as a new type of diet is initiated for the patient. The patient now has adequate, and full bowel function, and the nasogastric tube can be removed, whenever decided.
--- NOTE | 2017-03-16 15:35 | PDOC PROGRESS REPORT ---
Subjective Progress Note for:: 03/16/17 Subjective:: This is a follow-up visit for small bowel obstruction secondary to metastatic colon cancer. Patient is still maintaining her NG tube. Her bowels have opened up. She is being followed by surgery and oncology. Reason For Visit: SMALL BOWEL OBSTRUCTION Physical Exam Vital Signs: Temp Pulse Resp BP Pulse Ox 98.2 F 101 H 12 142/94 H 99 03/16/17 12:14 03/16/17 14:00 03/16/17 12:14 03/16/17 12:14 03/16/17 12:14 Intake & Output 03/15/17 03/16/17 03/17/17 06:59 06:59 06:59 Intake Total 1000 1580 Output Total 400 650 Balance 600 930 Weight 91.4 kg GENERAL: This is a well-developed overweight -[place] female resting in bed currently in no acute distress. HEENT: NG tube is in place and to wall suction. HEART: Regular rate and rhythm. No murmurs, rubs or gallops. LUNGS: Clear to auscultation bilaterally with equal rise and fall of the chest. ABDOMEN: Soft, nontender, nondistended with normoactive bowel sounds EXTREMETIES: No clubbing, cyanosis or edema. 2+ peripheral pulses bilaterally. NEURO: Awake, alert and oriented 3. Cranial nerves II through XII are grossly intact. Results Laboratory Results: 03/16/17 03:40 03/16/17 03:40 03/16/17 03/16/17 03:40 03:40 WBC 5.5 RBC 3.79 Hgb 11.6 L Hct 33.9 L MCV 90 MCH 30.8 MCHC 34.4 RDW 15.8 H Plt Count 276 Seg Neutrophils % 65.6 Lymphocytes % 29.9 Monocytes % 2.0 L Eosinophils % 1.2 Basophils % 1.3 Absolute Neutrophils 3.6 Absolute Lymphocytes 1.6 Absolute Monocytes 0.1 Absolute Eosinophils 0.1 Absolute Basophils 0.1 Sodium 142.0 Potassium 3.1 L Chloride 107 Carbon Dioxide 28 Anion Gap 7 BUN 6 L Creatinine 0.54 Est GFR ( Amer) > 60 Est GFR (Non-Af Amer) > 60 Glucose 91 Calcium 7.9 L Impressions: Abdomen/Pelvis CT 03/09/17 00:00 IMPRESSION: High-grade distal small-bowel obstruction at the ileocolic anastomosis related to focal tumor mass at the staple line, 4.9 x 4.3 cm in size. Chest X-Ray 03/09/17 00:00 IMPRESSION: Uncomplicated NG tube.Moderate dilated stacked small bowel loops of the left upper abdomen consistent with abnormal CT from 1 day prior. Abdomen X-Ray 03/11/17 08:00 IMPRESSION: Persistent dilated small bowel loops worrisome for small bowel obstruction. KUB X-Ray 03/14/17 00:00 IMPRESSION: Cannot exclude a partial small bowel obstruction at this point. The contrast given for the CT has progressed to the left colon. Assessment & Plan - Diagnosis (1) Colon cancer Qualifiers: Colon location: ascending Qualified Code(s): C18.2 - Malignant neoplasm of ascending colon Is this a current diagnosis for this admission?: Yes Plan: Continue chemotherapy as per oncology. (2) Hypokalemia Is this a current diagnosis for this admission?: Yes Plan: Replaced again this morning. (3) Small bowel obstruction Is this a current diagnosis for this admission?: Yes Plan: Secondary to underlying metastatic colon cancer. Continue NGT. Pull as per oncology. Per the notes and my conversation with Dr. Gilmore, he feels that it can likely be pulled tomorrow if she is tolerating a full meal. If she is not it will need to remain in stay through the weekend. If it can be pulled the patient can likely go home. Dr. Gilmore has informed me that he is already written pain medicine prescriptions for the patient (4) Tobacco abuse Plan: Cessation is advised. (5) Pain, neoplasm-related Is this a current diagnosis for this admission?: Yes Plan: Management by Dr. Gilmore. With prescriptions for pain meds in anticipation of discharge tomorrow. He is provided the patient - Time Time Spent with patient: Less than 15 minutes
[2017-03-17] MEDS: HYDROMORPHONE HCL INJ/PF 2 MG/ML AMPULE IV PRN ×10 (00:19→22:18)
[2017-03-17] MEDS: ONDANSETRON HCL INJ/PF 4 MG/2 ML SDV IV PRN (03:44)
[2017-03-17] MEDS: POTASSI CL 20 MEQ/D5-1/2NS 1L 1000 ML IV PRN ×2 (03:52→22:20)
--- NOTE | 2017-03-17 09:01 | PDOC PROGRESS REPORT ---
Subjective Progress Note for:: 03/17/17 Subjective:: Patient states that she only vomited once last night, but otherwise, has been doing well with NG tube clamped. Her pain is controlled, but she is frustrated at having to wait for nurses to bring meds. Reason For Visit: SMALL BOWEL OBSTRUCTION Physical Exam Vital Signs: Temp Pulse Resp BP Pulse Ox 98.4 F 97 16 140/93 H 98 03/17/17 07:54 03/17/17 07:54 03/17/17 07:54 03/17/17 07:54 03/17/17 07:54 Intake & Output 03/16/17 03/17/17 03/18/17 06:59 06:59 06:59 Intake Total 1580 6058 Output Total 650 3185 Balance 930 2873 General appearance: PRESENT: no acute distress, cooperative Neurological exam: PRESENT: alert, awake Psychiatric exam: PRESENT: appropriate affect. ABSENT: agitated Results Laboratory Results: 03/16/17 03:40 03/16/17 03:40 Impressions: Abdomen/Pelvis CT 03/09/17 00:00 IMPRESSION: High-grade distal small-bowel obstruction at the ileocolic anastomosis related to focal tumor mass at the staple line, 4.9 x 4.3 cm in size. Chest X-Ray 03/09/17 00:00 IMPRESSION: Uncomplicated NG tube.Moderate dilated stacked small bowel loops of the left upper abdomen consistent with abnormal CT from 1 day prior. Abdomen X-Ray 03/11/17 08:00 IMPRESSION: Persistent dilated small bowel loops worrisome for small bowel obstruction. KUB X-Ray 03/14/17 00:00 IMPRESSION: Cannot exclude a partial small bowel obstruction at this point. The contrast given for the CT has progressed to the left colon. Assessment & Plan - Diagnosis (1) Small bowel obstruction Is this a current diagnosis for this admission?: Yes Plan: OK to DC NG tube today. Advance diet as tolerated. (2) Nausea & vomiting Qualifiers: Vomiting type: cyclical vomiting Vomiting Intractability: intractable Qualified Code(s): G43.A1 - Cyclical vomiting, intractable Plan: Continue current PRN meds. (3) Pain, neoplasm-related Is this a current diagnosis for this admission?: Yes Plan: Continue Duragesic and PRN Dilaudid, but will need to change from IV to PO over the next day.
[2017-03-17] MEDS: ENOXAPARIN SODIUM INJ 40 MG/0.4 ML DISP.SYRIN SUBCUT SCH (09:11)
--- NOTE | 2017-03-17 13:19 | PDOC PROGRESS REPORT ---
Subjective Progress Note for:: 03/17/17 Subjective:: Pt states that she is feeling better. Pt states that she is still having some crampy abd pain but improved. Reason For Visit: SMALL BOWEL OBSTRUCTION Physical Exam Vital Signs: Temp Pulse Resp BP Pulse Ox 98.4 F 97 16 140/93 H 98 03/17/17 07:54 03/17/17 07:54 03/17/17 07:54 03/17/17 07:54 03/17/17 07:54 Intake & Output 03/16/17 03/17/17 03/18/17 06:59 06:59 06:59 Intake Total 1580 6058 Output Total 650 3185 Balance 930 2873 General appearance: PRESENT: no acute distress, well-developed, well-nourished Head exam: PRESENT: atraumatic, normocephalic Eye exam: PRESENT: conjunctiva pink, EOMI, PERRLA. ABSENT: scleral icterus Ear exam: PRESENT: normal external ear exam Mouth exam: PRESENT: moist, tongue midline Neck exam: ABSENT: carotid bruit, JVD, lymphadenopathy, thyromegaly Respiratory exam: PRESENT: clear to auscultation colt. ABSENT: rales, rhonchi, wheezes Cardiovascular exam: PRESENT: RRR. ABSENT: diastolic murmur, rubs, systolic murmur Pulses: PRESENT: normal dorsalis pedis pul Vascular exam: PRESENT: normal capillary refill GI/Abdominal exam: PRESENT: normal bowel sounds, soft. ABSENT: distended, guarding, mass, organolmegaly, rebound, tenderness Rectal exam: PRESENT: deferred Extremities exam: PRESENT: full ROM. ABSENT: calf tenderness, clubbing, pedal edema Neurological exam: PRESENT: alert, awake, oriented to person, oriented to place , oriented to time, oriented to situation, CN II-XII grossly intact. ABSENT: motor sensory deficit Psychiatric exam: PRESENT: appropriate affect, normal mood. ABSENT: homicidal ideation, suicidal ideation Skin exam: PRESENT: dry, intact, warm. ABSENT: cyanosis, rash Results Laboratory Results: 03/16/17 03:40 03/16/17 03:40 Impressions: Abdomen/Pelvis CT 03/09/17 00:00 IMPRESSION: High-grade distal small-bowel obstruction at the ileocolic anastomosis related to focal tumor mass at the staple line, 4.9 x 4.3 cm in size. Chest X-Ray 03/09/17 00:00 IMPRESSION: Uncomplicated NG tube.Moderate dilated stacked small bowel loops of the left upper abdomen consistent with abnormal CT from 1 day prior. Abdomen X-Ray 03/11/17 08:00 IMPRESSION: Persistent dilated small bowel loops worrisome for small bowel obstruction. KUB X-Ray 03/14/17 00:00 IMPRESSION: Cannot exclude a partial small bowel obstruction at this point. The contrast given for the CT has progressed to the left colon. Assessment & Plan - Diagnosis (1) Hypomagnesemia Is this a current diagnosis for this admission?: Yes Plan: Will give magnesium replacement. (2) Hypokalemia Is this a current diagnosis for this admission?: Yes Plan: Will give potassium replacement oral. Will continue IVFs with potassium. (3) Small bowel obstruction Is this a current diagnosis for this admission?: Yes Plan: Resolved. NGT removed. Will adjust pain medication. (4) Nausea & vomiting Qualifiers: Vomiting type: cyclical vomiting Vomiting Intractability: intractable Qualified Code(s): G43.A1 - Cyclical vomiting, intractable (5) Pain, neoplasm-related Is this a current diagnosis for this admission?: Yes Plan: Secondary to Bowel obstruction: Resolved. Pt tolerating diet. (6) DVT prophylaxis Plan: Lovenox. - Time Time Spent with patient: 15-24 minutes
[2017-03-17] MEDS: FENTANYL 75 MCG/HR PATCH.TD72 TD SCH (13:27)
[2017-03-17] MEDS ORDERED: POTASSIUM CHLORIDE 10 MEQ TABLET.SA PO ONE (13:30)
[2017-03-17] MEDS: MAGNESIUM SULFATE/D5W 1 GM/100 ML RTUPB IV SCH ×2 (15:53→18:12)
[2017-03-18] MEDS: HYDROMORPHONE HCL INJ/PF 2 MG/ML AMPULE IV PRN ×7 (00:16→14:10)
[2017-03-18 05:13] LABS: ABSOLUTE MONOCYTES (AUTO) 0.1 10^3/uL (0.1-1.4); ABSOLUTE NEUT (AUTO) 2.9 10^3/uL (1.7-8.2); EOSINOPHILS % (AUTO) 0.9 % (0-6); HEMATOCRIT 34.5 % (36.0-47.0); HEMOGLOBIN 11.5 g/dL (12.0-15.5); MEAN CORPUSCULAR HEMOGLOBIN 30.4 pg (27.0-33.4); MEAN CORPUSCULAR HGB CONC 33.3 g/dL (32.0-36.0); MEAN CORPUSCULAR VOLUME 91 fl (80-97); MONOCYTES % (AUTO) 1.1 % (3-13); RED BLOOD COUNT 3.78 10^6/uL (3.72-5.28); RED CELL DISTRIBUTION WIDTH 16.4 % (11.5-14.0); WHITE BLOOD COUNT 5.1 10^3/uL (4.0-10.5)
[2017-03-18 06:09] LABS: ANION GAP 5 (5-19); BLOOD UREA NITROGEN 5 mg/dL (7-20); CALCIUM 7.8 mg/dL (8.4-10.2); CARBON DIOXIDE 28 mmol/L (22-30); CHLORIDE 108 mmol/L (98-107); CREATININE RESULT 0.52 mg/dL (0.52-1.25); GLUCOSE 87 mg/dL (75-110); MAGNESIUM 2.2 mg/dL (1.6-2.3); SODIUM 141.2 mmol/L (137-145)
[2017-03-18] MEDS: POTASSI CL 20 MEQ/D5-1/2NS 1L 1000 ML IV PRN (06:19)
[2017-03-18] MEDS: ENOXAPARIN SODIUM INJ 40 MG/0.4 ML DISP.SYRIN SUBCUT SCH (10:40)
[2017-03-18 15:24] VITALS: BP 128/87
--- NOTE | 2017-03-18 18:39 | PDOC DISCHARGE SUMMARY ---
General - Admit/Disc Date/PCP Admission Date/Primary Care Provider: 03/09/17 23:11 JAKE PRECIADO MD - Discharge Diagnosis (1) Colon cancer Is this a current diagnosis for this admission?: Yes Summary: Follow-up with Dr. Gilmore is planned tomorrow. (2) Hypokalemia Is this a current diagnosis for this admission?: Yes Summary: Potassium chloride was prescribed in his liquid form. (3) Small bowel obstruction Is this a current diagnosis for this admission?: Yes Summary: Resolved. (4) Tobacco abuse Is this a current diagnosis for this admission?: Yes Summary: Smoking cessation is recommended. (5) Pain, neoplasm-related Is this a current diagnosis for this admission?: Yes Summary: Pain control as per Dr. Gilomre. - Additional Information Resuscitation Status: Full Code Home Medications: Baclofen [Baclofen 10 mg Tablet] 10 mg PO BIDP PRN 03/06/17 Ondansetron HCl [Zofran 8 mg Tablet] 8 mg PO Q8HP PRN 03/06/17 Oxycodone HCl 40 mg PO Q6HP PRN 03/06/17 Fentanyl [Duragesic 50 Mcg/Hr Transdermal Patch] 1 each TD Q3D@1500 patch.td72 03/08/17 Spironolactone [Aldactone 25 mg Tablet] 25 mg PO DAILY MDD NOT STARTED YET 03/10 Potassium Chloride 20 meq PO DAILY #100 liquid 03/18/17 History of Present Illness History of Present Illness: DON KING is a 36 year old -Serbian female with a past medical history of metastatic colon cancer who presented to the service with small bowel obstruction. Please see the H&P as detailed below by the admitting physician. History of Present Illness: 36-year-old female who has stage IV metastatic colon cancer who was recently hospitalized after a partial small bowel obstruction. She was sent home on and return the next day with worsening pain and obstruction. She was admitted by the surgical service and they have placed an NG tube and have been watching her conservatively. The patient also has been seen by oncology who is recommending starting chemotherapy tomorrow. Surgery has felt that there is no surgical intervention given her overall prognosis and has asked the medicine service to take over her care as the primary service. Hospital Course Hospital Course: The patient was admitted to the hospital and NG tube was placed. It was started to wall suction. It was felt that given her small bowel obstruction it was worth starting chemotherapy while she was here in the hospital in hopes to relieve her obstruction. Chemotherapy was started and serial KUBs were performed. It was felt that the patient's small bowel obstruction was improving , therefore, her NG tube was clamped and she was allowed to begin eating clear liquids. She was advanced to solid foods and was able to tolerate eating steak and pancakes. At this point the patient is tolerating food well. Her pain was controlled by medications ordered by Dr. Gilmore. Patient is in G tube was removed the day prior to discharge. Her pain was under reasonable control. She was given prescriptions for pain medications by Dr. Gilmore. She has a follow-up appointment with Dr. Gilmore tomorrow. She was discharged home safely from the floor. Physical Exam Vital Signs: Temp Pulse Resp BP Pulse Ox 98.2 F 103 H 16 111/84 99 03/18/17 11:27 03/18/17 11:27 03/18/17 11:27 03/18/17 11:27 03/18/17 11:27 Intake & Output 03/17/17 03/18/17 03/19/17 06:59 06:59 06:59 Intake Total 6058 3502 Output Total 3185 650 Balance 2873 2852 GENERAL: This is a well-developed overweight -Serbian female resting in bed currently in no acute distress. HEENT: NG tube is out HEART: Slightly tachycardic. No murmurs, rubs or gallops. LUNGS: Clear to auscultation bilaterally with equal rise and fall of the chest. ABDOMEN: Soft, nontender, nondistended with normoactive bowel sounds EXTREMETIES: No clubbing, cyanosis or edema. 2+ peripheral pulses bilaterally. NEURO: Awake, alert and oriented 3. Cranial nerves II through XII are grossly intact. Results Laboratory Results: 03/18/17 04:45 03/18/17 04:45 03/18/17 03/18/17 04:45 04:45 WBC 5.1 RBC 3.78 Hgb 11.5 L Hct 34.5 L MCV 91 MCH 30.4 MCHC 33.3 RDW 16.4 H Plt Count 240 Seg Neutrophils % 58.0 Lymphocytes % 39.0 Monocytes % 1.1 L Eosinophils % 0.9 Basophils % 1.0 Absolute Neutrophils 2.9 Absolute Lymphocytes 2.0 Absolute Monocytes 0.1 Absolute Eosinophils 0.0 Absolute Basophils 0.0 Sodium 141.2 Potassium 4.0 Chloride 108 H Carbon Dioxide 28 Anion Gap 5 BUN 5 L Creatinine 0.52 Est GFR ( Amer) > 60 Est GFR (Non-Af Amer) > 60 Glucose 87 Calcium 7.8 L Magnesium 2.2 Impressions: Abdomen/Pelvis CT 03/09/17 00:00 IMPRESSION: High-grade distal small-bowel obstruction at the ileocolic anastomosis related to focal tumor mass at the staple line, 4.9 x 4.3 cm in size. Chest X-Ray 03/09/17 00:00 IMPRESSION: Uncomplicated NG tube.Moderate dilated stacked small bowel loops of the left upper abdomen consistent with abnormal CT from 1 day prior. Abdomen X-Ray 03/11/17 08:00 IMPRESSION: Persistent dilated small bowel loops worrisome for small bowel obstruction. KUB X-Ray 03/14/17 00:00 IMPRESSION: Cannot exclude a partial small bowel obstruction at this point. The contrast given for the CT has progressed to the left colon. Qualifiers PATEINT BEING DISCHARGED WITH ANY OF THE FOLLOWING DIAGNOSIS?: No Plan Time Spent: Less than 30 Minutes
== END 2017-03-18 16:15 | disposition home or self-care (01) | DRG 375 ==
LOC: ER 15:51 → EH 23:11 → 4N 03-10 01:18
PROVIDERS: ADMIT Internal Medicine; ATTEND Internal Medicine
PROC: 0D9670Z Drainage of Stomach with Drainage Device, Via Natural or Artificial Opening (ICD-10-PCS; principal; 2017-03-09)
DX: C78.4 Secondary malignant neoplasm of small intestine (principal); C18.2 Malignant neoplasm of ascending colon; C78.7 Secondary malignant neoplasm of liver and intrahepatic bile duct; G43.A1 Cyclical vomiting, in migraine, intractable; G89.3 Neoplasm related pain (acute) (chronic); E86.0 Dehydration; I10 Essential (primary) hypertension; E87.6 Hypokalemia; E83.42 Hypomagnesemia; F17.200 Nicotine dependence, unspecified, uncomplicated; K21.9 Gastro-esophageal reflux disease without esophagitis; F32.9 Major depressive disorder, single episode, unspecified; Z79.899 Other long term (current) drug therapy; Z90.49 Acquired absence of other specified parts of digestive tract; Z87.81 Personal history of (healed) traumatic fracture; Z83.3 Family history of diabetes mellitus; Z82.49 Family history of ischemic heart disease and other diseases of the circulatory system; Z90.710 Acquired absence of both cervix and uterus
CPT/HCPCS: 36415; 36591; 71010; 74000; 74020; 74177; 80048; 80053; 81001; 82088; 83690; 83735; 85025; 85027; 96365; 96366; 96367; 96375; 96376; 96409; 96413; 96415; 96416; 96417; 99285; A9270-GY; J0461; J0640; J1100; J1170; J1650; J2405; J3475; J3480; J3490; J7040; J7050; J7120; J9035; J9190; J9206

== ENCOUNTER 2017-03-27 10:01 | Outpatient (CLI) | payer OTHER ==
[~2017-03-27 10:01] MED LIST changes: +ATROPINE SULFATE INJ 0.4 MG/1 ML VIAL IV PRN; +BEVACIZUMAB IV PRN; -DEXTROSE 5% IV PRN; -DEXTROSE 5%-WATER 250 ML IV PRN; -FOSAPREPITANT DIMEGLUMINE 150 MG in NORMAL SALINE 150 ML IV PRN; +IRINOTECAN HCL IV PRN; +NORMAL SALINE 250 ML IV PRN; +NORMAL SALINE IV PRN; -OXALIPLATIN IV PRN; -WATER IV PRN
[2017-03-27 10:30] LABS: ALANINE AMINOTRANSFERASE 28 U/L (9-52); ALBUMIN 2.5 g/dL (3.5-5.0); ALKALINE PHOSPHATASE 208 U/L (38-126); ANION GAP 7 (5-19); ASPARTATE AMINO TRANSFERASE 17 U/L (14-36); BILIRUBIN,DIRECT 0.2 mg/dL (0.0-0.4); BILIRUBIN,TOTAL 0.2 mg/dL (0.2-1.3); BLOOD UREA NITROGEN 6 mg/dL (7-20); CALCIUM 8.3 mg/dL (8.4-10.2); CARBON DIOXIDE 33 mmol/L (22-30); CHLORIDE 101 mmol/L (98-107); CREATININE RESULT 0.62 mg/dL (0.52-1.25); GLUCOSE 79 mg/dL (75-110); SODIUM 140.6 mmol/L (137-145); TOTAL PROTEIN 5.6 g/dL (6.3-8.2)
[2017-03-27 11:02] VITALS: BP 129/92
== END 2017-03-27 15:45 | disposition home or self-care (01) ==
LOC: II 10:01 → 5TH 10:03 → II 15:45
PROVIDERS: ATTEND Internal Medicine
PROC: 3E0330M Introduction of Antineoplastic, Monoclonal Antibody, into Peripheral Vein, Percutaneous Approach (ICD-10-PCS; principal; 2017-03-27)
PROC: 3E03305 Introduction of Other Antineoplastic into Peripheral Vein, Percutaneous Approach (ICD-10-PCS; 2017-03-27)
PROC: 3E033GC Introduction of Other Therapeutic Substance into Peripheral Vein, Percutaneous Approach (ICD-10-PCS; 2017-03-27)
DX: Z51.11 Encounter for antineoplastic chemotherapy (principal); C18.2 Malignant neoplasm of ascending colon
CPT/HCPCS: 82378; 80053; 96411; 96413; 96416; 96368; 96375; 96417; J0461; J0640; J3490 ×2; J9190; J9206; J2405; J7050; J7040; J1100; J9035 ×2; 96367; 96374; 96409; 96415

== ENCOUNTER 2017-04-10 11:23 | Outpatient (CLI) | payer OTHER ==
[2017-04-10] MEDS ORDERED: ONDANSETRON HCL/PF 16 MG, DEXAMETHASONE SOD PHOSPHATE 10 MG in NORMAL SALINE 50 ML IV PRN (11:53)
[2017-04-10] MEDS ORDERED: ATROPINE SULFATE INJ 0.4 MG/1 ML VIAL IV PRN (11:53)
[2017-04-10] MEDS ORDERED: NORMAL SALINE 250 ML IV PRN (11:54)
[2017-04-10] MEDS ORDERED: BEVACIZUMAB IV PRN (11:59)
[2017-04-10] MEDS ORDERED: NORMAL SALINE IV PRN ×3 (11:59→12:03)
[2017-04-10] MEDS ORDERED: IRINOTECAN HCL IV PRN (12:01)
[2017-04-10] MEDS ORDERED: LEUCOVORIN CALCIUM IV PRN (12:03)
[2017-04-10] MEDS ORDERED: DISPOSABLE IV PRN (12:05)
[2017-04-10] MEDS ORDERED: FLUOROURACIL IV PRN ×2 (12:05→12:06)
[2017-04-10] MEDS ORDERED: CONTAINER EMPTY IV PRN (12:06)
[2017-04-10 16:33] VITALS: BP 127/92
== END 2017-04-10 17:02 | disposition home or self-care (01) ==
LOC: II 11:23 → 5TH 11:34 → II 17:02
PROVIDERS: ATTEND Internal Medicine
PROC: 3E04305 Introduction of Other Antineoplastic into Central Vein, Percutaneous Approach (ICD-10-PCS; principal; 2017-04-10)
PROC: 3E0430M Introduction of Antineoplastic, Monoclonal Antibody, into Central Vein, Percutaneous Approach (ICD-10-PCS; 2017-04-10)
PROC: 3E043GC Introduction of Other Therapeutic Substance into Central Vein, Percutaneous Approach (ICD-10-PCS; 2017-04-10)
DX: Z51.11 Encounter for antineoplastic chemotherapy (principal); C18.2 Malignant neoplasm of ascending colon
CPT/HCPCS: 96411; 96413; 96416; 96367; 96368; 96375; 96417; J0461; J0640; J3490 ×2; J9190; J9206; J2405; J7050; J7040; J1100; J9035; 96409; 96415

== ENCOUNTER 2017-04-24 09:45 | Outpatient (CLI) | payer MEDICAID, OTHER ==
[2017-04-24 10:18] VITALS: BP 129/75
[2017-04-24 10:22] LABS: ALANINE AMINOTRANSFERASE 28 U/L (9-52); ALBUMIN 2.4 g/dL (3.5-5.0); ALKALINE PHOSPHATASE 139 U/L (38-126); ANION GAP 7 (5-19); ASPARTATE AMINO TRANSFERASE 13 U/L (14-36); BILIRUBIN,DIRECT 0.2 mg/dL (0.0-0.4); BILIRUBIN,TOTAL 0.2 mg/dL (0.2-1.3); BLOOD UREA NITROGEN 7 mg/dL (7-20); CALCIUM 8.4 mg/dL (8.4-10.2); CARBON DIOXIDE 31 mmol/L (22-30); CHLORIDE 103 mmol/L (98-107); GLUCOSE 81 mg/dL (75-110); SODIUM 141.4 mmol/L (137-145)
[2017-04-24 10:25] LABS: POTASSIUM 2.6 mmol/L (3.6-5.0)
== END 2017-04-24 14:35 | disposition home or self-care (01) ==
LOC: II 09:45 → 5TH 09:51 → II 14:35
PROVIDERS: ATTEND Internal Medicine
PROC: 3E0330M Introduction of Antineoplastic, Monoclonal Antibody, into Peripheral Vein, Percutaneous Approach (ICD-10-PCS; principal; 2017-04-24)
PROC: 3E03305 Introduction of Other Antineoplastic into Peripheral Vein, Percutaneous Approach (ICD-10-PCS; 2017-04-24)
PROC: 3E033GC Introduction of Other Therapeutic Substance into Peripheral Vein, Percutaneous Approach (ICD-10-PCS; 2017-04-24)
DX: Z51.11 Encounter for antineoplastic chemotherapy (principal); C18.2 Malignant neoplasm of ascending colon
CPT/HCPCS: 80053; 96413; 96415; 96416; 96367; 96375; 96417; J0461; J0640; J3490 ×2; J9190; J9206; J2405; J7050; J7040; J1100; J9035; 96368; 96411

== ENCOUNTER 2017-05-08 09:51 | Outpatient (CLI) | payer MEDICAID, OTHER ==
[2017-05-08 10:19] VITALS: BP 120/88
== END 2017-05-08 14:39 | disposition home or self-care (01) ==
LOC: II 09:51 → 5TH 09:55 → II 14:39
PROVIDERS: ATTEND Internal Medicine
PROC: 3E0430M Introduction of Antineoplastic, Monoclonal Antibody, into Central Vein, Percutaneous Approach (ICD-10-PCS; principal; 2017-05-08)
PROC: 3E04305 Introduction of Other Antineoplastic into Central Vein, Percutaneous Approach (ICD-10-PCS; 2017-05-08)
PROC: 3E043GC Introduction of Other Therapeutic Substance into Central Vein, Percutaneous Approach (ICD-10-PCS; 2017-05-08)
DX: Z51.11 Encounter for antineoplastic chemotherapy (principal); C18.2 Malignant neoplasm of ascending colon
CPT/HCPCS: 96413; 96415; 96365; 96374; 96360; 96417; J0461; J0640; J3490 ×2; J9190; J9206; J2405; J7050; J7040; J1100; J9035; 96361; 96367; 96368; 96375; 96411

== ENCOUNTER 2017-05-22 09:40 | Outpatient (CLI) | payer MEDICAID, OTHER ==
[2017-05-22 10:29] VITALS: BP 125/79
[2017-05-22] MEDS ORDERED: NORMAL SALINE IV PRN ×2 (11:58→12:01)
[2017-05-22] MEDS ORDERED: IRINOTECAN HCL IV PRN ×2 (11:58→12:01)
== END 2017-05-22 14:54 | disposition home or self-care (01) ==
LOC: II 09:40 → 5TH 09:41 → II 14:54
PROVIDERS: ATTEND Internal Medicine
PROC: 3E04305 Introduction of Other Antineoplastic into Central Vein, Percutaneous Approach (ICD-10-PCS; principal; 2017-05-22)
PROC: 3E0430M Introduction of Antineoplastic, Monoclonal Antibody, into Central Vein, Percutaneous Approach (ICD-10-PCS; 2017-05-22)
PROC: 3E0433Z Introduction of Anti-inflammatory into Central Vein, Percutaneous Approach (ICD-10-PCS; 2017-05-22)
PROC: 3E043GC Introduction of Other Therapeutic Substance into Central Vein, Percutaneous Approach (ICD-10-PCS; 2017-05-22)
DX: Z51.11 Encounter for antineoplastic chemotherapy (principal); C18.2 Malignant neoplasm of ascending colon
CPT/HCPCS: 96411; 96413; 96367; 96368; 96375; 96417; J0461; J0640; J3490 ×2; J9190; J9206; J2405; J7050; J7040; J1100; J9035; 96374; 96409; 96415

== ENCOUNTER → 2017-08-24 | Outpatient (CLI) | payer MEDICAID ==
--- NOTE | 2017-08-24 12:04 | RADIOLOGY REPORT (SQ) ---
EXAM DESCRIPTION: CT CHEST WITH COMPLETED DATE/TIME: 08/24/2017 11:41 am REASON FOR STUDY: COLON CA (C18.2) C18.2 MALIGNANT NEOPLASM OF ASCENDING COLON COMPARISON: 05/17/2017 TECHNIQUE: CT scan of the chest performed using helical scanning technique with dynamic intravenous contrast injection. Images reviewed with lung, soft tissue and bone windows. Reconstructed coronal and sagittal MPR images reviewed. All images stored on PACS. All CT scanners at this facility use dose modulation, iterative reconstruction, and/or weight based d osing when appropriate to reduce radiation dose to as low as reasonably achievable (ALARA). [facility]: Dose Right [facility]: CareDose [facility]: Dose Right [facility]: Teradose 4D [facility]: [employer] CONTRAST TYPE AND DOSE: 100 cc Isovue 370- low osmolar. RENAL FUNCTION: GFR > 60. RADIATION DOSE: . LIMITATIONS: None. FINDINGS: LUNGS AND PLEURA: No opacities, nodules, masses. No pneumothorax. No effusions. HILAR AND MEDIASTINAL STRUCTURES: Stable 12 x 8 mm right cardiophrenic node. HEART AND VASCULAR STRUCTURES: No aneurysm or dissection. No central pulmonary emboli. No pericardi al effusion. HARDWARE: None in the chest. UPPER ABDOMEN: See separate report of the CT of the abdomen. THYROID AND OTHER SOFT TISSUES: No masses. No adenopathy. BONES: No significant finding. OTHER: Right -sided port with tip in the SVC. IMPRESSION: Stable right cardiophrenic node. No significant change. TECHNICAL DOCUMENTATION: JOB ID: [id number] Quality ID # [id number]: Final reports with documentation of one or more dose reduction techniques (e.g., Au tomated exposure control, adjustment of the mA and/or kV according to patient size, use of iterative reconstruction technique) 2010 [employer]- All Rights Reserved Reading location - IP/workstation name: Unknown
--- NOTE | 2017-08-24 12:14 | RADIOLOGY REPORT (SQ) ---
EXAM DESCRIPTION: CT ABD/PELVIS WITH IV ORAL COMPLETED DATE/TIME: 08/24/2017 11:41 am REASON FOR STUDY: COLON CA (C18.2) C18.2 MALIGNANT NEOPLASM OF ASCENDING COLON COMPARISON: 05/17/2017 TECHNIQUE: CT scan of the abdomen and pelvis performed with intravenous and oral contrast using rajesh kay scanning technique with dynamic intravenous contrast injection. Images reviewed with lung, soft t issue, and bone windows. Reconstructed coronal and sagittal MPR images reviewed. Delayed images for e valuation of the urinary system also acquired. All images stored on PACS. All CT scanners at this facility use dose modulation, iterative reconstruction, and/or weight based d osing when appropriate to reduce radiation dose to as low as reasonably achievable (ALARA). [facility]: Dose Right [facility]: CareDose [facility]: Dose Right [facility]: Teradose 4D [facility]: [employer] CONTRAST TYPE AND DOSE: See separate report of same date. RENAL FUNCTION: See separate report of the same date. RADIATION DOSE: . LIMITATIONS: None. FINDINGS: LOWER CHEST: See separate report of the CT of the chest. LIVER: Peritoneal implants are not significantly changed. SPLEEN: Normal size. No focal lesions. PANCREAS: No masses. No significant calcifications. No adjacent inflammation or peripancreatic fluid collections. Pancreatic duct not dilated. GALLBLADDER: Surgically absent. ADRENAL GLANDS: No significant masses or asymmetry. RIGHT KIDNEY AND URETER: No solid masses. No significant calcifications. No hydronephrosis or hyd roureter. LEFT KIDNEY AND URETER: No solid masses. No significant calcifications. No hydronephrosis or hydr oureter. AORTA AND VESSELS: No aneurysm. No dissection. Renal arteries, SMA, celiac without stenosis. RETROPERITONEUM: No retroperitoneal adenopathy, hemorrhage or masses. BOWEL AND PERITONEAL CAVITY: Peritoneal implant burden in the right pericolic gutter is not significa ntly changed. Previously described soft tissue mass adjacent to the anastomosis in the right lower q uadrant now measures 1.5 cm in maximum diameter, previously about 6 x 4 cm. There is bowel wall thic kening in the adjacent colon status post right hemicolectomy. This was probably present on the prior just better visualized due to oral contrast on the current study. APPENDIX: Surgically absent. PELVIS: Right external iliac adenopathy has increased to 4.7 x 1.9 cm from 4.0 x 1.6 cm. ABDOMINAL WALL: No masses. No hernias. BONES: No significant or acute findings. OTHER: No other significant finding. IMPRESSION: 1. Stable peritoneal implants in the right pericolic gutter. 2. Decrease in size of lesion in the anastomosis status post right hemicolectomy. 3. Increase in right external iliac adenopathy. TECHNICAL DOCUMENTATION: JOB ID: [id number] Quality ID # [id number]: Final reports with documentation of one or more dose reduction techniques (e.g., Au tomated exposure control, adjustment of the mA and/or kV according to patient size, use of iterative reconstruction technique) 2010 [employer]- All Rights Reserved Reading location - IP/workstation name: Unknown
== END ==
LOC: RAD 08:14
PROVIDERS: ATTEND Internal Medicine
DX: C18.2 Malignant neoplasm of ascending colon (principal); R59.9 Enlarged lymph nodes, unspecified; Z90.49 Acquired absence of other specified parts of digestive tract
CPT/HCPCS: 71260; 74177

== ENCOUNTER → 2017-09-12 | Outpatient (CLI) | payer MEDICAID ==
--- NOTE | 2017-09-12 13:07 | RADIOLOGY REPORT (SQ) ---
EXAM DESCRIPTION: FOOT BILATERAL 3 VIEWS COMPLETED DATE/TIME: 09/12/2017 10:18 am REASON FOR STUDY: PAIN JAIMIE FEET M79.672 PAIN IN LEFT FOOT M79.671 PAIN IN RIGHT FOOT No known injury COMPARISON: None. NUMBER OF VIEWS: Three views. TECHNIQUE: AP, lateral and oblique radiographic images acquired of the right and left foot. LIMITATIONS: None. FINDINGS: MINERALIZATION: Normal. BONES: No acute fracture or dislocation. No worrisome bone lesions. JOINTS: No effusions. SOFT TISSUES: No soft tissue swelling. No foreign body. OTHER: No other significant finding. IMPRESSION: Unremarkable study. TECHNICAL DOCUMENTATION: JOB ID: [id number] [employer]- All Rights Reserved Reading location - IP/workstation name: [email or web address]
== END ==
LOC: OD 09:55
PROVIDERS: ATTEND Internal Medicine
DX: M79.672 Pain in left foot (principal); M79.671 Pain in right foot

== ENCOUNTER → 2017-10-29 | Outpatient (CLI) | payer MEDICAID ==
--- NOTE | 2017-10-29 14:16 | RADIOLOGY REPORT (SQ) ---
EXAM DESCRIPTION: VENOUS BILATERAL LOWER COMPLETED DATE/TIME: 10/29/2017 1:25 pm REASON FOR STUDY: PAIN SWELLING M79.604 PAIN IN RIGHT LEG M79.605 PAIN IN LEFT LEG M79.89 OTHER S PECIFIED SOFT TISSUE DISORDERS COMPARISON: None. TECHNIQUE: Dynamic and static mcghee scale and color images acquired of both lower extremity venous sy stems. Selected spectral images acquired with additional compression and augmentation maneuvers. Imag es stored on PACS. LIMITATIONS: None. FINDINGS: RIGHT LEG COMMON FEMORAL AND FEMORAL: Normal phasicity, compression and augmentation. No visualized echogenic m aterial on mcghee scale. No defects on color images. POPLITEAL: Normal compression and augmentation. No visualized echogenic material on mcghee scale. No de fects on color images. CALF VESSELS: Normal compression and augmentation. No visualized echogenic material on mcghee scale. No defects on color image. GSV AND SSV: Normal compression. No visualized echogenic material on mcghee scale. No defects on color images. ANY DEEP VENOUS INSUFFICIENCY: Not evaluated. ANY EVIDENCE OF POPLITEAL CYST: No. OTHER: No other significant finding. LEFT LEG COMMON FEMORAL AND FEMORAL: Normal phasicity, compression and augmentation. No visualized echogenic m aterial on mcghee scale. No defects on color images. POPLITEAL: Normal compression and augmentation. No visualized echogenic material on mcghee scale. No de fects on color images. CALF VESSELS: Normal compression and augmentation. No visualized echogenic material on mcghee scale. No defects on color images. GSV AND SSV: Normal compression. No visualized echogenic material on mcghee scale. No defects on color images. ANY DEEP VENOUS INSUFFICIENCY: Not evaluated. ANY EVIDENCE POPLITEAL CYST: No. OTHER: No other significant finding. IMPRESSION: NO EVIDENCE DVT OR SVT IN EITHER LEG. TECHNICAL DOCUMENTATION: JOB ID: [id number] [employer]- All Rights Reserved Reading location - IP/workstation name: [employer] [employer] [employer]
== END ==
LOC: SP 14:25
PROVIDERS: ATTEND Internal Medicine
DX: M79.604 Pain in right leg (principal); M79.605 Pain in left leg; M79.89 Other specified soft tissue disorders; C18.2 Malignant neoplasm of ascending colon
CPT/HCPCS: 93970

== ENCOUNTER → 2017-10-31 | Outpatient (CLI) | payer MEDICAID ==
--- NOTE | 2017-10-31 12:08 | RADIOLOGY REPORT (SQ) ---
EXAM DESCRIPTION: FEMUR RIGHT COMPLETED DATE/TIME: 10/31/2017 11:46 am REASON FOR STUDY: PAIN IN LEG, UNSPECIFIED C18.2 MALIGNANT NEOPLASM OF ASCENDING COLON M79.606 EDMAR N IN LEG, UNSPECIFIED COMPARISON: Right femur films 12/11/2011, 01/17/2012, 02/08/2012 Right lower extremity venous Doppler 10/29/2017 NUMBER OF VIEWS: Two views. TECHNIQUE: Two radiographic images acquired of the right femur to include hip and knee in at least o ne projection. LIMITATIONS: None. FINDINGS: Normal bone density. There is a right femoral intramedullary heaven with an old healed mid diaphyseal femur fracture with bon y remodeling. Distal anchoring screws along the femoral metaphysis have been removed. No lucency ar ound the hardware worrisome for loosening. Limited view of the right hip joint and right knee joint in the field of view are unremarkable. If there is continued right leg pain, consider bone scan for further evaluation. IMPRESSION: No acute fracture or malalignment. Old healed mid diaphysis right femoral fracture with intramedullary nail. TECHNICAL DOCUMENTATION: JOB ID: [id number] [employer]- All Rights Reserved Reading location - IP/workstation name: [email or web address]
== END ==
LOC: RAD 11:26
PROVIDERS: ATTEND Internal Medicine
DX: C18.2 Malignant neoplasm of ascending colon (principal); M79.606 Pain in leg, unspecified

== ENCOUNTER → 2017-11-02 | Outpatient (CLI) | payer MEDICAID ==
--- NOTE | 2017-11-02 14:42 | RADIOLOGY REPORT (SQ) ---
EXAM DESCRIPTION: CT CHEST WITH; CT ABD/PELVIS WITH IV ORAL COMPLETED DATE/TIME: 11/02/2017 1:41 pm REASON FOR STUDY: COLON CA C18.2 MALIGNANT NEOPLASM OF ASCENDING COLON COMPARISON: PET-CT 02/11/2017 CT chest abdomen pelvis 05/17/2017, 08/24/2017 CONTRAST TYPE AND DOSE: contrast/concentration: Isovue 370.00 mg/ml; Total Contrast Delivered: 93.0 ml; Total Saline Delivered: 71.0 ml RENAL FUNCTION: Creatinine 0.7 TECHNIQUE: CT scan of the chest performed using helical scanning technique with dynamic intravenous contrast injection. Images reviewed with lung, soft tissue and bone windows. Reconstructed coronal a nd sagittal MPR images reviewed. All images stored on PACS. CT scan of the abdomen and pelvis performed with intravenous and with oral contrastusing helical scan eve technique with dynamic intravenous contrast injection. Images reviewed with lung, soft tissue a nd bone windows. Reconstructed coronal and sagittal MPR images reviewed. Delayed images for evaluat ion of the urinary system also acquired and evaluated. All images stored on PACS. All CT scanners at this facility use dose modulation, iterative reconstruction, and/or weight based d osing when appropriate to reduce radiation dose to as low as reasonably achievable (ALARA). [facility]: Dose Right [facility]: CareDose [facility]: Dose Right [facility]: Teradose 4D [facility]: [employer] RADIATION DOSE: CT Rad equipment meets quality standard of care and radiation dose reduction techniq ues were employed. CTDIvol: 7.5 - 11.5 mGy. DLP: 1470 mGy-cm. . LIMITATIONS: None. FINDINGS: CHEST: LUNGS AND PLEURA: No opacities, nodules, masses. No pneumothorax. No effusions. HILAR AND MEDIASTINAL STRUCTURES: 1.2 x 0.8 cm cardiophrenic lymph node on the right, unchanged from previous exams. HEART AND VASCULAR STRUCTURES: No aneurysm or dissection. No central pulmonary emboli. No pericardi al effusion. HARDWARE: Right permanent central line tip superior vena cava THYROID AND OTHER SOFT TISSUES: No masses. No adenopathy. BONES: No significant finding. OTHER: No other significant finding. ABDOMEN AND PELVIS: LIVER: There is a peritoneal implant along the anterior left lobe liver peritoneal surface on axial i mage 32, 1.6 x 1 cm in size. This is unchanged from prior studies. No liver parenchymal masses, colt iary ductal dilatation. SPLEEN: Normal size. No focal lesions. PANCREAS: No masses. No significant calcifications. No adjacent inflammation or peripancreatic fluid collections. Pancreatic duct not dilated. GALLBLADDER: Post cholecystectomy ADRENAL GLANDS: No significant masses or asymmetry. RIGHT KIDNEY AND URETER: No solid masses. No significant calcification. No hydronephrosis or hydroure ter. LEFT KIDNEY AND URETER: No solid masses. No significant calcification. No hydronephrosis or hydrouret er. AORTA AND VESSELS: No aneurysm. No dissection. Renal arteries, SMA, celiac without stenosis. RETROPERITONEUM: No retroperitoneal adenopathy, hemorrhage or masses. BOWEL AND PERITONEAL CAVITY: Patient drank oral contrast. There are stable right upper quadrant mult iple small peritoneal implants adjacent to the anastomosis, stable. Stable right lower quadrant 1.5 cm mesenteric deposits. Trace fluid in the right lower quadrant adjacent to the anastomosis, unchang ed from 08/24/2017. Post right partial colectomy. No bowel obstruction. APPENDIX: Surgically absent ABDOMINAL WALL: No masses. No hernias. PELVIS: Post hysterectomy. Right ovary identified on axial image 64, left ovary identified on axial image 64 and 65. No external iliac adenopathy or free pelvic fluid. No inguinal adenopathy. BONES: No significant or acute findings. OTHER: No other significant finding. IMPRESSION: Stable right pericardial phrenic lymph node, right upper quadrant peritoneal implants, 1 .5 cm mesenteric nodule right lower quadrant. No new lesions. Post appendectomy, hysterectomy, cholecystectomy, right hemicolectomy. TECHNICAL DOCUMENTATION: JOB ID: [id number] Quality ID # 436: Final reports with documentation of one or more dose reduction techniques (e.g., Au tomated exposure control, adjustment of the mA and/or kV according to patient size, use of iterative reconstruction technique) 2010 [employer]- All Rights Reserved Reading location - IP/workstation name: [facility]
== END ==
LOC: RAD 10:48
PROVIDERS: ATTEND Internal Medicine
DX: C18.2 Malignant neoplasm of ascending colon (principal); Z90.49 Acquired absence of other specified parts of digestive tract; Z90.710 Acquired absence of both cervix and uterus
CPT/HCPCS: 71260; 74177; 82565

== ENCOUNTER → 2017-11-06 | Outpatient (CLI) | payer MEDICAID ==
--- NOTE | 2017-11-06 15:37 | RADIOLOGY REPORT (SQ) ---
EXAM DESCRIPTION: NM WHOLE BODY BONE SCAN COMPLETED DATE/TIME: 11/06/2017 3:15 pm REASON FOR STUDY: MALIGNANT NEOPLASM OF ASCENDING COLON C18.2 MALIGNANT NEOPLASM OF ASCENDING COLON COMPARISON: No available imaging studies for comparison. RADIONUCLIDE AND DOSE: 21.3 millicuries Tc99m MDP. The route of agent administration: Intravenous. ADDITIONAL DRUGS AND DOSES: None. TECHNIQUE: Routine delayed images at 3 hour post radionuclide injection acquired of the bony skeleto n including anterior and posterior whole-body projections and additional focused images as needed. LIMITATIONS: None. FINDINGS: BONES: Increased uptake in the right midshaft femur at site of old fracture. No evidence of metastatic disease. KIDNEYS: Symmetric excretion without obstruction. OTHER: No other significant finding. IMPRESSION: No evidence of metastatic disease. COMMENT: Quality measure 147: Current bone scan is compared with any available plain radiographs, p rior bone scans, and CT/MRI. TECHNICAL DOCUMENTATION: JOB ID: [id number] [employer]- All Rights Reserved Reading location - IP/workstation name: [email or web address]
== END ==
LOC: RAD 11:07
PROVIDERS: ATTEND Internal Medicine
DX: C18.2 Malignant neoplasm of ascending colon (principal)
CPT/HCPCS: 78306; A9561

== ENCOUNTER → 2018-01-29 | Outpatient (CLI) | payer MEDICAID ==
--- NOTE | 2018-01-29 14:04 | RADIOLOGY REPORT (SQ) ---
EXAM DESCRIPTION: CT CHEST WITH; CT ABD/PELVIS WITH IV ORAL COMPLETED DATE/TIME: 01/29/2018 1:27 pm REASON FOR STUDY: COLON CA (C18.2) C18.2 MALIGNANT NEOPLASM OF ASCENDING COLON COMPARISON: PET-CT 02/11/2017 CT chest abdomen pelvis 11/02/2017, 08/24/2017, 05/17/2017 CT chest 10/12/2010 Bone scan 11/06/2017 CONTRAST TYPE AND DOSE: contrast/concentration: Isovue 350.00 mg/ml; Total Contrast Delivered: 88.4 ml; Total Saline Delivered: 22.0 ml RENAL FUNCTION: Creatinine 0.7 TECHNIQUE: CT scan of the chest performed using helical scanning technique with dynamic intravenous contrast injection. Images reviewed with lung, soft tissue and bone windows. Reconstructed coronal a nd sagittal MPR images reviewed. All images stored on PACS. CT scan of the abdomen and pelvis performed with intravenous and with oral contrastusing helical scan eve technique with dynamic intravenous contrast injection. Images reviewed with lung, soft tissue a nd bone windows. Reconstructed coronal and sagittal MPR images reviewed. Delayed images for evaluat ion of the urinary system also acquired and evaluated. All images stored on PACS. All CT scanners at this facility use dose modulation, iterative reconstruction, and/or weight based d osing when appropriate to reduce radiation dose to as low as reasonably achievable (ALARA). [facility]: Dose Right [facility]: CareDose [facility]: Dose Right [facility]: Teradose 4D [facility]: [employer] RADIATION DOSE: CT Rad equipment meets quality standard of care and radiation dose reduction techniq ues were employed. CTDIvol: 6.2 - 11.6 mGy. DLP: 1439 mGy-cm. . LIMITATIONS: None. FINDINGS: CHEST: LUNGS AND PLEURA: No opacities, nodules, masses. No pneumothorax. No effusions. HILAR AND MEDIASTINAL STRUCTURES: No identified masses or abnormal nodes. HEART AND VASCULAR STRUCTURES: No aneurysm or dissection. No central pulmonary emboli. No pericardi al effusion. HARDWARE: Right permanent central line tip superior vena cava THYROID AND OTHER SOFT TISSUES: No masses. No adenopathy. BONES: No significant finding. OTHER: No other significant finding. ABDOMEN AND PELVIS: Patient is post right hemicolectomy. In the right upper quadrant adjacent to the bowel anastomosis, there are multiple small peritoneal implants, with trace fluid, similar compared to 11/02/2017. There is a peritoneal implant between the liver and right hemidiaphragm now 2 x 1.3 cm in size (was 1 .6 x 1 cm on 11/02/2017). No definite blockage at the level of the distal ileum -right colon anastomosis. No free intraperiton eal air or fluid. No CT evidence of bowel obstruction. LIVER: Normal size. No primary liver masses. No dilated ducts. SPLEEN: Normal size. No focal lesions. PANCREAS: No masses. No significant calcifications. No adjacent inflammation or peripancreatic fluid collections. Pancreatic duct not dilated. GALLBLADDER: Surgically absent ADRENAL GLANDS: No significant masses or asymmetry. RIGHT KIDNEY AND URETER: No solid masses. No significant calcification. No hydronephrosis or hydroure ter. LEFT KIDNEY AND URETER: No solid masses. No significant calcification. No hydronephrosis or hydrouret er. AORTA AND VESSELS: No aneurysm. No dissection. Renal arteries, SMA, celiac without stenosis. RETROPERITONEUM: No retroperitoneal adenopathy, hemorrhage or masses. BOWEL AND PERITONEAL CAVITY: As above APPENDIX: Surgically absent ABDOMINAL WALL: No masses. No hernias. PELVIS: No mass or free fluid. Normal bladder. Post hysterectomy BONES: No significant or acute findings. OTHER: No other significant finding. IMPRESSION: No CT evidence of metastatic disease to the chest Peritoneal implants along the right upper quadrant are stable compared to 11/02/2017 except for 1 impl ant which is slightly larger, between the right lobe liver and right hemidiaphragm. Old right hemicolectomy hysterectomy and cholecystectomy NORMAL CT OF THE ABDOMEN AND PELVIS WITH ORAL AND INTRAVENOUS CONTRAST. TECHNICAL DOCUMENTATION: JOB ID: [id number] Quality ID # 436: Final reports with documentation of one or more dose reduction techniques (e.g., Au tomated exposure control, adjustment of the mA and/or kV according to patient size, use of iterative reconstruction technique) 2010 [employer]- All Rights Reserved Reading location - IP/workstation name: [facility]-[email or web address]
== END ==
LOC: RAD 10:50
PROVIDERS: ATTEND Internal Medicine
DX: C18.2 Malignant neoplasm of ascending colon (principal)
CPT/HCPCS: 71260; 74177

== ENCOUNTER → 2018-05-14 | Outpatient (CLI) | payer MEDICAID ==
--- NOTE | 2018-05-14 12:00 | RADIOLOGY REPORT (SQ) ---
EXAM DESCRIPTION: CT CHEST WITH COMPLETED DATE/TIME: 05/14/2018 9:44 am REASON FOR STUDY: COLON CANCER C18.2 MALIGNANT NEOPLASM OF ASCENDING COLON COMPARISON: 01/29/2018 TECHNIQUE: CT scan of the chest performed using helical scanning technique with dynamic intravenous contrast injection. Images reviewed with lung, soft tissue and bone windows. Reconstructed coronal and sagittal MPR and MIP images reviewed. All images stored on PACS. All CT scanners at this facility use dose modulation, iterative reconstruction, and/or weight based d osing when appropriate to reduce radiation dose to as low as reasonably achievable (ALARA). [facility]: Dose Right [facility]: CareDose [facility]: Dose Right [facility]: Teradose 4D [facility]: [employer] CONTRAST TYPE AND DOSE: Omnipaque 350 100 cc RENAL FUNCTION: Creatinine 0.8 RADIATION DOSE: . LIMITATIONS: None. FINDINGS: LUNGS AND PLEURA: New ground-glass nodule measuring 1.0 cm within the left upper lobe (ser ies 6, image 25). There are additional sub 4 mm centrilobular ground-glass nodules within the left u pper lobe (series 6, image 37), new from prior. Stable previously-seen perihilar ground-glass nodule . No dense consolidation. No pleural effusion or pneumothorax. HILAR AND MEDIASTINAL STRUCTURES: No identified masses or abnormal nodes. HEART AND VASCULAR STRUCTURES: No aneurysm or dissection. No central pulmonary emboli. No pericardi al effusion. HARDWARE: None in the chest. UPPER ABDOMEN: See separate report of the CT of the abdomen. THYROID AND OTHER SOFT TISSUES: No masses. No adenopathy. BONES: No significant finding. OTHER: No other significant finding. IMPRESSION: New left upper lobe ground-glass nodule with additional sub 4 mm centrilobular nodules l ikely infectious/ inflammatory. Recommend attention on follow-up exams. No definite evidence of int rathoracic metastatic disease. TECHNICAL DOCUMENTATION: JOB ID: [id number] Quality ID # 436: Final reports with documentation of one or more dose reduction techniques (e.g., Au tomated exposure control, adjustment of the mA and/or kV according to patient size, use of iterative reconstruction technique) 2010 [employer]- All Rights Reserved Reading location - IP/workstation name: [email or web address]
--- NOTE | 2018-05-14 12:23 | RADIOLOGY REPORT (SQ) ---
EXAM DESCRIPTION: CT ABD/PELVIS WITH IV ORAL COMPLETED DATE/TIME: 05/14/2018 9:44 am REASON FOR STUDY: COLON CANCER C18.2 MALIGNANT NEOPLASM OF ASCENDING COLON COMPARISON: 01/29/2018 TECHNIQUE: CT scan of the abdomen and pelvis performed using helical scanning technique with dynamic intravenous contrast injection. No oral contrast. Images reviewed with lung, soft tissue, and bone windows. Reconstructed coronal and sagittal MPR images reviewed. Delayed images for evaluation of the urinary system also acquired. All images stored on PACS. All CT scanners at this facility use dose modulation, iterative reconstruction, and/or weight based d osing when appropriate to reduce radiation dose to as low as reasonably achievable (ALARA). [facility]: Dose Right [facility]: CareDose [facility]: Dose Right [facility]: Teradose 4D [facility]: [employer] CONTRAST TYPE AND DOSE: contrast/concentration: Isovue 350.00 mg/ml; Total Contrast Delivered: 100.0 ml; Total Saline Delivered: 72.0 ml Omnipaque 350 100 cc RENAL FUNCTION: Creatinine 0.8 RADIATION DOSE: CT Rad equipment meets quality standard of care and radiation dose reduction techniq ues were employed. CTDIvol: 7.6 - 14.7 mGy. DLP: 1809 mGy-cm.. LIMITATIONS: None. FINDINGS: LOWER CHEST: See separate report of the CT of the chest. LIVER: There is decreased conspicuity of the perihepatic implant along the right hepatic lobe measuri ng 1.7 x 1.1 cm, previously 1.9 x 81.3 cm (series 3, image 31). No discrete hepatic parenchymal lesi ons. No intrahepatic ductal dilation. SPLEEN: Normal size. No focal lesions. PANCREAS: No masses. No significant calcifications. No adjacent inflammation or peripancreatic fluid collections. Pancreatic duct not dilated. GALLBLADDER: Surgically absent. ADRENAL GLANDS: No significant masses or asymmetry. RIGHT KIDNEY AND URETER: No solid masses. No significant calcifications. No hydronephrosis or hyd roureter. LEFT KIDNEY AND URETER: No solid masses. No significant calcifications. No hydronephrosis or hydr oureter. AORTA AND VESSELS: No aneurysm. No dissection. Renal arteries, SMA, celiac without stenosis. RETROPERITONEUM: No retroperitoneal adenopathy, hemorrhage or masses. BOWEL AND PERITONEAL CAVITY: No evidence of intestinal obstruction. No focal bowel wall thickening. Grossly stable appearance of the additional peritoneal nodularity along the right pericolic gutter a nd subhepatic region. Status post right hemicolectomy. Trace free fluid within the right paracolic gutter, not significantly changed. No free intraperitoneal gas. APPENDIX: Surgically absent. PELVIS: Grossly stable appearance of the nodularity within the right pelvis and paracolic gutter. Fo r reference there is a right pelvic nodule measuring 1.4 cm (series 3, image 64). ABDOMINAL WALL: No masses. No hernias. BONES: Partially visualized right femoral hardware. No evidence of acute bony abnormality. No suspi cious osseous lesions. OTHER: No other significant finding. IMPRESSION: Grossly stable appearance of the peritoneal implants within the right paracolic gutter a nd pelvis. Mildly decreased size of the peritoneal implant between the right hepatic lobe and hemidi aphragm. No new discrete disease. TECHNICAL DOCUMENTATION: JOB ID: [id number] Quality ID # 436: Final reports with documentation of one or more dose reduction techniques (e.g., Au tomated exposure control, adjustment of the mA and/or kV according to patient size, use of iterative reconstruction technique) 2010 [employer]- All Rights Reserved Reading location - IP/workstation name: [email or web address]
== END ==
LOC: RAD 07:14
PROVIDERS: ATTEND Internal Medicine
DX: C18.2 Malignant neoplasm of ascending colon (principal); R91.1 Solitary pulmonary nodule
CPT/HCPCS: 71260; 74177; 82565

== ENCOUNTER → 2018-08-06 | Outpatient (CLI) | payer MEDICAID, OTHER ==
--- NOTE | 2018-08-06 11:17 | RADIOLOGY REPORT (SQ) ---
EXAM DESCRIPTION: CT CHEST WITH COMPLETED DATE/TIME: 08/06/2018 10:49 am REASON FOR STUDY: COLON CA (C18.2) C18.2 MALIGNANT NEOPLASM OF ASCENDING COLON COMPARISON: 05/14/2018 TECHNIQUE: CT scan of the chest performed using helical scanning technique with dynamic intravenous contrast injection. Images reviewed with lung, soft tissue and bone windows. Reconstructed coronal and sagittal MPR and MIP images reviewed. All images stored on PACS. All CT scanners at this facility use dose modulation, iterative reconstruction, and/or weight based d osing when appropriate to reduce radiation dose to as low as reasonably achievable (ALARA). [facility]: Dose Right [facility]: CareDose [facility]: Dose Right [facility]: Teradose 4D [facility]: [employer] CONTRAST TYPE AND DOSE: 100 mL Omnipaque 350 RENAL FUNCTION: Creatinine -0.7 RADIATION DOSE: Total exam DLP: 1985.83 mGy-cm. LIMITATIONS: None. FINDINGS: LUNGS AND PLEURA: The previously demonstrated ground-glass opacity in the left upper lobe is barely discernible on the current examination. Stable appearing small subcentimeter bilateral pu lmonary nodules. Prior granulomatous disease. Stable small focal areas of scarring or atelectasis in the middle lobes. Dependent atelectasis in the posterior lower lobes. Stable bullae in the left up per paramediastinal region. No pneumothorax or pleural effusion. The central airways are clear. HILAR AND MEDIASTINAL STRUCTURES: Decrease in the remnant thymic tissue in the anterior mediastinum, since the prior examination. HEART AND VASCULAR STRUCTURES: No aneurysm or dissection. No central pulmonary emboli. No pericardi al effusion. HARDWARE: Right [id number] catheter, unchanged finding. UPPER ABDOMEN: Please see CT abdomen report. THYROID AND OTHER SOFT TISSUES: The visualized thyroid gland is stable in appearance. Stable appeari ng right cardiophrenic lymph node and fatty appearing left subpectoral and bilateral axillary lymph n odes. BONES: The osseous structures are stable in appearance. OTHER: No other significant finding. IMPRESSION: 1. Since the previous examination dated 05/14/2018, decrease in the left upper lobe grou nd-glass opacity which is barely discernible on the current examination. 2. Stable bilateral small subcentimeter pulmonary nodules. 3. Additional findings as above. TECHNICAL DOCUMENTATION: JOB ID: [id number] Quality ID # 436: Final reports with documentation of one or more dose reduction techniques (e.g., Au tomated exposure control, adjustment of the mA and/or kV according to patient size, use of iterative reconstruction technique) 2010 [employer]- All Rights Reserved Reading location - IP/workstation name: [facility]
--- NOTE | 2018-08-06 13:07 | RADIOLOGY REPORT (SQ) ---
EXAM DESCRIPTION: CT ABD/PELVIS WITH IV ORAL COMPLETED DATE/TIME: 08/06/2018 10:48 am REASON FOR STUDY: COLON CA (C18.2) C18.2 MALIGNANT NEOPLASM OF ASCENDING COLON COMPARISON: 05/14/2018 TECHNIQUE: CT scan of the abdomen and pelvis performed using helical scanning technique with dynamic intravenous contrast injection. No oral contrast. Images reviewed with lung, soft tissue, and bone windows. Reconstructed coronal and sagittal MPR images reviewed. Delayed images for evaluation of the urinary system also acquired. All images stored on PACS. All CT scanners at this facility use dose modulation, iterative reconstruction, and/or weight based d osing when appropriate to reduce radiation dose to as low as reasonably achievable (ALARA). [facility]: Dose Right [facility]: CareDose [facility]: Dose Right [facility]: Teradose 4D [facility]: [employer] CONTRAST TYPE AND DOSE: contrast/concentration: Isovue 350.00 mg/ml; Total Contrast Delivered: 100.0 ml; Total Saline Delivered: 72.0 ml RENAL FUNCTION: Creatinine- 0.7 RADIATION DOSE: CT Rad equipment meets quality standard of care and radiation dose reduction techniq ues were employed. CTDIvol: 8.0 - 16.1 mGy. DLP: 1986 mGy-cm.. LIMITATIONS: None. FINDINGS: LOWER CHEST: Please see CT chest report. LIVER: Stable peritoneal implant adjacent to the lateral margin of the right hepatic lobe. No dilat ed ducts. The hepatic and portal veins are patent. SPLEEN: Normal size. No focal lesions. PANCREAS: No masses. No significant calcifications. No adjacent inflammation or peripancreatic fluid collections. Pancreatic duct not dilated. GALLBLADDER: Prior cholecystectomy. ADRENAL GLANDS: No significant masses or asymmetry. RIGHT KIDNEY AND URETER: Extrarenal pelvis on the right, normal anatomic variant No solid masses. No significant calcifications. No hydronephrosis or hydroureter. LEFT KIDNEY AND URETER: Extrarenal pelvis on the left, normal anatomic variant. No solid masses. No significant calcifications. No hydronephrosis or hydroureter. AORTA AND VESSELS: No aneurysm. No dissection. Renal arteries, SMA, celiac without stenosis. RETROPERITONEUM: No retroperitoneal adenopathy, hemorrhage or masses. BOWEL AND PERITONEAL CAVITY: Partial right hemicolectomy, unchanged finding. Stable appearance to t he peritoneal implants in the right paracolonic gutter. Small stable amount of free fluid is also id entified. A new 1.3 cm omental nodule in the right lower quadrant of the abdomen, axial images 54- 56, series 3 . A few other smaller stable nodules are also identified. APPENDIX: Prior appendectomy. PELVIS: Prior hysterectomy. Small hypoattenuated structures in the ovaries, may represent follicles . Normal bladder. ABDOMINAL WALL: No masses. No hernias. BONES: The osseous structures are stable in appearance. OTHER: No other significant finding. IMPRESSION: 1. Since the previous examination dated 05/14/2018, new omental nodule in the right lowe r quadrant of the abdomen. 2. Stable appearance to the previously demonstrated peritoneal implants in the right paracolonic gutt er and omental fat. The peritoneal implant adjacent to the lateral margin of the right hepatic lobe is also stable. 3. Additional stable findings as above. TECHNICAL DOCUMENTATION: JOB ID: [id number] Quality ID # 436: Final reports with documentation of one or more dose reduction techniques (e.g., Au tomated exposure control, adjustment of the mA and/or kV according to patient size, use of iterative reconstruction technique) 2010 [employer]- All Rights Reserved Reading location - IP/workstation name: [facility]
== END ==
LOC: RAD 08:06
PROVIDERS: ATTEND Internal Medicine
DX: C18.2 Malignant neoplasm of ascending colon (principal)
CPT/HCPCS: 71260; 74177

== ENCOUNTER → 2018-10-07 | Outpatient (CLI) | payer MEDICARE, MEDICAID ==
--- NOTE | 2018-10-07 11:35 | RADIOLOGY REPORT (SQ) ---
EXAM DESCRIPTION: CT CHEST WITH COMPLETED DATE/TIME: 10/07/2018 10:59 am REASON FOR STUDY: C18.2 MALIGNANT NEOPLASM OF ASCENDING COLON C18.2 MALIGNANT NEOPLASM OF ASCENDING COLON COMPARISON: 08/06/2018 TECHNIQUE: CT scan of the chest performed using helical scanning technique with dynamic intravenous contrast injection. Images reviewed with lung, soft tissue and bone windows. Reconstructed coronal and sagittal MPR and MIP images reviewed. All images stored on PACS. All CT scanners at this facility use dose modulation, iterative reconstruction, and/or weight based d osing when appropriate to reduce radiation dose to as low as reasonably achievable (ALARA). [facility]: Dose Right [facility]: CareDose [facility]: Dose Right [facility]: Teradose 4D [facility]: [employer] CONTRAST TYPE AND DOSE: See separate report of the same date. RENAL FUNCTION: See separate report. RADIATION DOSE: . LIMITATIONS: None. FINDINGS: LUNGS AND PLEURA: No opacities, nodules, masses. No pneumothorax. No effusions. HILAR AND MEDIASTINAL STRUCTURES: No identified masses or abnormal nodes. HEART AND VASCULAR STRUCTURES: No aneurysm or dissection. No central pulmonary emboli. No pericardi al effusion. HARDWARE: None in the chest. UPPER ABDOMEN: See separate report of the CT of the abdomen. THYROID AND OTHER SOFT TISSUES: No masses. No adenopathy. BONES: No significant finding. OTHER: Right-sided port tip in the cavoatrial junction. IMPRESSION: No evidence of metastatic disease. TECHNICAL DOCUMENTATION: JOB ID: [id number] Quality ID # 436: Final reports with documentation of one or more dose reduction techniques (e.g., Au tomated exposure control, adjustment of the mA and/or kV according to patient size, use of iterative reconstruction technique) 2010 [employer]- All Rights Reserved Reading location - IP/workstation name: [email or web address]
--- NOTE | 2018-10-07 11:50 | RADIOLOGY REPORT (SQ) ---
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 Images reviewed with lung, soft t issue, and bone windows. Reconstructed coronal and sagittal MPR images reviewed. Delayed images for e valuation of the urinary system also acquired. All images stored on PACS. All CT scanners at this facility use dose modulation, iterative reconstruction, and/or weight based d osing when appropriate to reduce radiation dose to as low as reasonably achievable (ALARA). [facility]: Dose Right [facility]: CareDose [facility]: Dose Right [facility]: Teradose 4D [facility]: [facility] CONTRAST TYPE AND DOSE: contrast/concentration: Isovue 350.00 mg/ml; Total Contrast Delivered: 100.0 ml; Total Saline Delivered: 51.0 ml RENAL FUNCTION: GFR > 60. RADIATION DOSE: CT Rad equipment meets quality standard of care and radiation dose reduction techniq ues were employed. CTDIvol: 8.2 - 18.6 mGy. DLP: 2256 mGy-cm. . LIMITATIONS: None. FINDINGS: LOWER CHEST: See separate report of the CT of the chest. LIVER: Normal size. No masses. No dilated ducts. SPLEEN: Normal size. No focal lesions. PANCREAS: No masses. No significant calcifications. No adjacent inflammation or peripancreatic fluid collections. Pancreatic duct not dilated. GALLBLADDER: Surgically absent. ADRENAL GLANDS: No significant masses or asymmetry. RIGHT KIDNEY AND URETER: No solid masses. No significant calcifications. No hydronephrosis or hyd roureter. LEFT KIDNEY AND URETER: No solid masses. No significant calcifications. No hydronephrosis or hydr oureter. AORTA AND VESSELS: No aneurysm. No dissection. Renal arteries, SMA, celiac without stenosis. RETROPERITONEUM: No retroperitoneal adenopathy, hemorrhage or masses. BOWEL AND PERITONEAL CAVITY: Right hemicolectomy. Subhepatic peritoneal nodules measuring up to just under 1 cm are unchanged. No new nodules. No ascites. APPENDIX: Surgically absent. PELVIS: No significant masses. Normal bladder. No free fluid. ABDOMINAL WALL: No masses. No hernias. BONES: No significant or acute findings. OTHER: No other significant finding. IMPRESSION: Stable peritoneal metastasis. No new lesions. No ascites. TECHNICAL DOCUMENTATION: JOB ID: [id number] Quality ID # 436: Final reports with documentation of one or more dose reduction techniques (e.g., Au tomated exposure control, adjustment of the mA and/or kV according to patient size, use of iterative reconstruction technique) 2010 [employer]- All Rights Reserved Reading location - IP/workstation name: [email or web address]
== END ==
LOC: RAD 08:13
PROVIDERS: ATTEND Internal Medicine
DX: C18.2 Malignant neoplasm of ascending colon (principal); C78.6 Secondary malignant neoplasm of retroperitoneum and peritoneum
CPT/HCPCS: 71260; 74177

== ENCOUNTER → 2019-01-10 | Outpatient (CLI) | payer MEDICARE, MEDICAID ==
--- NOTE | 2019-01-10 11:56 | RADIOLOGY REPORT (SQ) ---
EXAM DESCRIPTION: CT CHEST WITH; CT ABD/PELVIS WITH IV ORAL COMPLETED DATE/TIME: 01/10/2019 11:17 am; 01/10/2019 11:18 am REASON FOR STUDY: COLON CA (C18.2) C18.2 MALIGNANT NEOPLASM OF ASCENDING COLON COMPARISON: CT chest abdomen pelvis 10/07/2018, 08/06/2018, 05/14/2018, 01/29/2018 Bone scan 11/06/2017 PET-CT 02/11/2017 CONTRAST TYPE AND DOSE: contrast/concentration: Isovue 350.00 mg/ml; Total Contrast Delivered: 81.0 ml; Total Saline Delivered: 63.0 ml RENAL FUNCTION: Creatinine 0.8 TECHNIQUE: CT scan of the chest performed using helical scanning technique with dynamic intravenous contrast injection. Images reviewed with lung, soft tissue and bone windows. Reconstructed coronal a nd sagittal MPR images reviewed. All images stored on PACS. CT scan of the abdomen and pelvis performed with intravenous and with oral contrastusing helical scan eve technique with dynamic intravenous contrast injection. Images reviewed with lung, soft tissue a nd bone windows. Reconstructed coronal and sagittal MPR images reviewed. Delayed images for evaluat ion of the urinary system also acquired and evaluated. All images stored on PACS. All CT scanners at this facility use dose modulation, iterative reconstruction, and/or weight based d osing when appropriate to reduce radiation dose to as low as reasonably achievable (ALARA). [facility]: Dose Right [facility]: CareDose [facility]: Dose Right [facility]: Teradose 4D [facility]: [employer] RADIATION DOSE: CT Rad equipment meets quality standard of care and radiation dose reduction techniq ues were employed. CTDIvol: 9.7 - 19.8 mGy. DLP: 2408 mGy-cm. . LIMITATIONS: None. FINDINGS: CHEST: LUNGS AND PLEURA: There is mild patchy airspace disease in the left upper lobe and bilateral lower lo bes. Correlate clinically for pneumonia. This is new compared to previous studies. No pleural effu samm. No pneumothorax. Airways are patent. HILAR AND MEDIASTINAL STRUCTURES: No identified masses or abnormal nodes. HEART AND VASCULAR STRUCTURES: No aneurysm or dissection. No central pulmonary emboli. No pericardi al effusion. HARDWARE: Right-sided permanent central line tip superior vena cava THYROID AND OTHER SOFT TISSUES: No masses. No adenopathy. BONES: No significant finding. OTHER: No other significant finding. ABDOMEN AND PELVIS: LIVER: Normal size. No masses. No dilated ducts. SPLEEN: Normal size. No focal lesions. PANCREAS: No masses. No significant calcifications. No adjacent inflammation or peripancreatic fluid collections. Pancreatic duct not dilated. GALLBLADDER: Surgically absent ADRENAL GLANDS: No significant masses or asymmetry. RIGHT KIDNEY AND URETER: No solid masses. No significant calcification. No hydronephrosis or hydroure ter. LEFT KIDNEY AND URETER: No solid masses. No significant calcification. No hydronephrosis or hydrouret er. AORTA AND VESSELS: No aneurysm. No dissection. Renal arteries, SMA, celiac without stenosis. RETROPERITONEUM: No retroperitoneal adenopathy, hemorrhage or masses. BOWEL AND PERITONEAL CAVITY: Patient drank oral contrast. Prior right hemicolectomy. In the right u pper quadrant along the undersurface of the liver along the mesenteric fat, there are several small s ubcentimeter nodules which are less prominent than on previous exams. These are best shown on axial image 28 and axial images 38-45. No bowel obstruction. No free intraperitoneal air or fluid. APPENDIX: Surgically absent ABDOMINAL WALL: No masses. No hernias. PELVIS: No mass or free fluid. Normal bladder. Post hysterectomy BONES: No significant or acute findings. OTHER: No other significant finding. IMPRESSION: Post right hemicolectomy, cholecystectomy, appendectomy and hysterectomy. Tiny subcentimeter mesenteric fat nodules in the right upper quadrant less prominent than on previous studies. Patchy bilateral left upper lobe and bilateral lower lobe airspace disease, abnormal but nonspecific TECHNICAL DOCUMENTATION: JOB ID: [id number] Quality ID # 436: Final reports with documentation of one or more dose reduction techniques (e.g., Au tomated exposure control, adjustment of the mA and/or kV according to patient size, use of iterative reconstruction technique) 2010 [employer]- All Rights Reserved Reading location - IP/workstation name: [email or web address]
== END ==
LOC: RAD 08:12
PROVIDERS: ATTEND Physician Assistant Medical
DX: C18.2 Malignant neoplasm of ascending colon (principal); Z90.49 Acquired absence of other specified parts of digestive tract; Z90.710 Acquired absence of both cervix and uterus
CPT/HCPCS: 71260; 74177

== ENCOUNTER → 2019-01-15 | Outpatient (CLI) | payer MEDICARE, MEDICAID ==
--- NOTE | 2019-01-15 11:20 | RADIOLOGY REPORT (SQ) ---
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 TECHNIQUE: Multiplanar imaging includes noncontrasted T1, T2, FLAIR, diffusion with ADC map and post gadolinium contrast T1 sequences. Images stored on PACS. CONTRAST TYPE AND DOSE: 20 mL Dotarem. RENAL FUNCTION: Not indicated. ACR Type II contrast agent associated with few, if any, unconfounded cases of NSF LIMITATIONS: None. FINDINGS: ANATOMY: No anomalies. Normal vascular flow voids. Pituitary fossa normal. CSF SPACES: Normal in size and contour. No hemorrhage. CEREBRUM: Sulci and gyri normal in size and contour. Normal white matter signal on FLAIR imaging. No evidence of hemorrhage, mass, or extraaxial fluid collection. No abnormal enhancement post contrast. POSTERIOR FOSSA: No signal alteration. No hemorrhage. No edema, masses, or mass effect. Internal iris tory canals, cerebellopontine angles, mastoids normal. No enhancing lesions. No abnormal enhancement post contrast. DIFFUSION IMAGING: Negative for acute or subacute infarction. ORBITS: No masses. Globes normal. PARANASAL SINUSES: Small retention cyst or polyp in the left maxillary sinus. OTHER: No other significant finding. IMPRESSION: NORMAL MRI OF THE BRAIN WITHOUT AND WITH INTRAVENOUS GADOLINIUM CONTRAST. EVIDENCE OF ACUTE STROKE: NO. TECHNICAL DOCUMENTATION: JOB ID: [id number] [employer]- All Rights Reserved Reading location - IP/workstation name: [email or web address]
== END ==
LOC: RAD 09:34
PROVIDERS: ATTEND Physician Assistant Medical
DX: C18.2 Malignant neoplasm of ascending colon (principal)
CPT/HCPCS: 70553; A9576

== ENCOUNTER → 2019-04-18 | Outpatient (CLI) | payer MEDICARE, MEDICAID ==
--- NOTE | 2019-04-18 15:24 | RADIOLOGY REPORT (SQ) ---
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 No oral contrast. Images reviewed with lung, soft tissue, and bone windows. Reconstructed coronal and sagittal MPR images reviewed. Delayed images for evaluation of the urinary system also acquired. All images stored on PACS. All CT scanners at this facility use dose modulation, iterative reconstruction, and/or weight based d osing when appropriate to reduce radiation dose to as low as reasonably achievable (ALARA). [facility]: Dose Right [facility]: CareDose [facility]: Dose Right [facility]: Teradose 4D [facility]: [employer] CONTRAST TYPE AND DOSE: contrast/concentration: Isovue 350.00 mg/ml; Total Contrast Delivered: 100.0 ml; Total Saline Delivered: 72.0 ml RENAL FUNCTION: None required. The patient is less than 50 years old. RADIATION DOSE: CT Rad equipment meets quality standard of care and radiation dose reduction techniq ues were employed. CTDIvol: 9.5 - 21.8 mGy. DLP: 2648 mGy-cm.. LIMITATIONS: None. FINDINGS: LOWER CHEST: See separate report of the CT of the chest. LIVER: Normal size. No masses. No dilated ducts. SPLEEN: Normal size. No focal lesions. PANCREAS: No masses. No significant calcifications. No adjacent inflammation or peripancreatic fluid collections. Pancreatic duct not dilated. GALLBLADDER: Surgically absent. ADRENAL GLANDS: No significant masses or asymmetry. RIGHT KIDNEY AND URETER: No solid masses. No significant calcifications. No hydronephrosis or hyd roureter. LEFT KIDNEY AND URETER: No solid masses. No significant calcifications. No hydronephrosis or hydr oureter. AORTA AND VESSELS: No aneurysm. No dissection. Renal arteries, SMA, celiac without stenosis. RETROPERITONEUM: No retroperitoneal hemorrhage. BOWEL AND PERITONEAL CAVITY: Status post right hemicolectomy. No focal bowel wall thickening. No ev idence of intestinal obstruction. There are scattered peritoneal nodules inferior to the right hepat ic lobe, largest measuring 11 mm, previously 15 mm (series 3, image 41). No free intraperitoneal gas or fluid. APPENDIX: Absent. PELVIS: Increased size of a soft tissue nodule measuring 2.8 cm (series 3, image 69) in the right hem ipelvis which is felt to correspond to the right ovary. There is an adjacent soft tissue nodule with in the right hemipelvis measuring 12 mm in short axis, stable (series 3, image 67). Status post hys terectomy. ABDOMINAL WALL: No masses. No hernias. BONES: No acute bony abnormality. No discrete lytic or blastic osseous lesions. Partially evaluated right hip arthroplasty. OTHER: No other significant finding. IMPRESSION: 1. Status post right hemicolectomy. Increased size of a soft tissue nodule measuring 2 .8 cm (series 3, image 69) in the right hemipelvis which is felt to correspond to the right ovary. R ecommend attention on follow-up exams. Stable additional soft tissue nodule within the right hemipel vis and previously seen peritoneal implants inferior to the right hepatic lobe. 2. No other evidence of acute intra-abdominal/ pelvic process. Chronic additional findings as above . TECHNICAL DOCUMENTATION: JOB ID: [id number] Quality ID # 436: Final reports with documentation of one or more dose reduction techniques (e.g., Au tomated exposure control, adjustment of the mA and/or kV according to patient size, use of iterative reconstruction technique) 2010 [employer]- All Rights Reserved Reading location - IP/workstation name: [email or web address]
--- NOTE | 2019-04-18 16:16 | RADIOLOGY REPORT (SQ) ---
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 Images reviewed with lung, soft tissue and bone windows. Reconstructed coronal and sagittal MPR and MIP images reviewed. All images stored on PACS. All CT scanners at this facility use dose modulation, iterative reconstruction, and/or weight based d osing when appropriate to reduce radiation dose to as low as reasonably achievable (ALARA). [facility]: Dose Right [facility]: CareDose [facility]: Dose Right [facility]: Teradose 4D [facility]: [employer] CONTRAST TYPE AND DOSE: 100 mL of IV Omnipaque 350- low osmolar. RENAL FUNCTION: GFR > 60. RADIATION DOSE: 9.5 mGy . LIMITATIONS: None. FINDINGS: LUNGS AND PLEURA: No opacities, nodules, masses. No pneumothorax. No effusions. HILAR AND MEDIASTINAL STRUCTURES: No identified masses or abnormal nodes. HEART AND VASCULAR STRUCTURES: No aneurysm or dissection. No central pulmonary emboli. No pericardi al effusion. HARDWARE: Right-sided permanent line tip superior vena cava UPPER ABDOMEN: Please see separate report THYROID AND OTHER SOFT TISSUES: No masses. No adenopathy. BONES: No significant finding. OTHER: No other significant finding. IMPRESSION: No CT evidence of metastatic disease to the chest TECHNICAL DOCUMENTATION: JOB ID: [id number] Quality ID # 436: Final reports with documentation of one or more dose reduction techniques (e.g., Au tomated exposure control, adjustment of the mA and/or kV according to patient size, use of iterative reconstruction technique) 2010 [employer]- All Rights Reserved Reading location - IP/workstation name: [email or web address]
== END ==
LOC: RAD 10:21
PROVIDERS: ATTEND Physician Assistant Medical
DX: C18.2 Malignant neoplasm of ascending colon (principal)
CPT/HCPCS: 71260; 74177; 82565

== ENCOUNTER → 2019-05-21 | Outpatient (CLI) | payer MEDICARE, MEDICAID ==
--- NOTE | 2019-05-22 10:58 | RADIOLOGY REPORT (SQ) ---
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 Additional selected color Doppler and spectral images recorded. LIMITATIONS: Pelvic bowel gas FINDINGS: UTERUS: Post hysterectomy ENDOMETRIAL STRIPE: Post hysterectomy CERVIX: Post hysterectomy RIGHT OVARY AND DOPPLER: Unable to visualize the right ovary due to adnexal bowel gas. Reason CT 04/18 demonstrates a 3.9 by 2.3 cm ovary on coronal reconstruction image 54. LEFT OVARY AND DOPPLER: Unable to visualize the left ovary due to adnexal bowel gas. Recent CT 020 demonstrates a 3.5 x 2.3 cm ovary on coronal image 42. FREE FLUID: None noted. OTHER: No other significant finding. IMPRESSION: Nondiagnostic study. Pelvic bowel gas. Post hysterectomy. Ovaries not visualized. TECHNICAL DOCUMENTATION: JOB ID: [id number] [employer]- All Rights Reserved Rev-08/31 Reading location - IP/workstation name: [email or web address]
== END ==
LOC: RAD 18:39
PROVIDERS: ATTEND Internal Medicine
DX: C18.2 Malignant neoplasm of ascending colon (principal)
CPT/HCPCS: 76830; 93976

== ENCOUNTER → 2019-09-24 | Outpatient (CLI) | payer MEDICARE, MEDICAID ==
--- NOTE | 2019-09-24 15:08 | RADIOLOGY REPORT (SQ) ---
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 TECHNIQUE: CT scan of the chest performed using helical scanning technique with dynamic intravenous contrast injection. Images reviewed with lung, soft tissue and bone windows. Reconstructed coronal and sagittal MPR and MIP images reviewed. All images stored on PACS. All CT scanners at this facility use dose modulation, iterative reconstruction, and/or weight based d osing when appropriate to reduce radiation dose to as low as reasonably achievable (ALARA). [facility]: Dose Right [facility]: CareDose [facility]: Dose Right [facility]: Teradose 4D [facility]: [employer] CONTRAST TYPE AND DOSE: 100 mL Omnipaque 350- low osmolar. RENAL FUNCTION: GFR > 60. RADIATION DOSE: CT Rad equipment meets quality standard of care and radiation dose reduction techniq ues were employed. CTDIvol: 12.8 - 22.4 mGy. DLP: 2930 mGy-cm. LIMITATIONS: None. FINDINGS: LUNGS AND PLEURA: Mild unchanged bronchial wall thickening without bronchiectasis or segme ntal mucus plugging. There is a new nodular opacity in the anterior basal segment of the left lower lobe that abuts the diaphragmatic surface of the pleura and measures 17 x 12 mm. There is no nodule or mass. There is no consolidation or pleural effusion. HILAR AND MEDIASTINAL STRUCTURES: No adenopathy or mass. HEART AND VASCULAR STRUCTURES: No aneurysm or dissection of the thoracic aorta. No cardiomegaly or p ericardial effusion. HARDWARE: The tip of the right IJ single-lumen port terminates within the SVC. UPPER ABDOMEN: Refer to the separate report of the CT of the abdomen. THYROID AND OTHER SOFT TISSUES: No mass or adenopathy. BONES: No fracture or osseous lesion. OTHER: No other finding. IMPRESSION: 1. No evidence of metastatic disease. 2. The nodular opacity in the anterior basal segment of the left lower lobe (image 83 of series 6) t hat abuts the diaphragmatic surface of the pleura is favored to represent atelectasis. TECHNICAL DOCUMENTATION: JOB ID: [id number] Quality ID # 436: Final reports with documentation of one or more dose reduction techniques (e.g., Au tomated exposure control, adjustment of the mA and/or kV according to patient size, use of iterative reconstruction technique) 2010 [employer]- All Rights Reserved Reading location - IP/workstation name: [email or web address]
--- NOTE | 2019-09-24 15:22 | RADIOLOGY REPORT (SQ) ---
EXAM DESCRIPTION: CT ABD/PELVIS WITH IV ORAL IMAGES COMPLETED DATE/TIME: 09/24/2019 2:37 pm REASON FOR STUDY: C18.2 MALIGNANT NEOPLASM OF ASCENDING COLON C18.2 MALIGNANT NEOPLASM OF ASCENDING COLON COMPARISON: CT of the abdomen and pelvis with contrast from 04/18/2019. TECHNIQUE: CT scan of the abdomen and pelvis performed using helical scanning technique with dynamic intravenous contrast injection. No oral contrast. Images reviewed with lung, soft tissue, and bone windows. Reconstructed coronal and sagittal MPR images reviewed. Delayed images for evaluation of the urinary system also acquired. All images stored on PACS. All CT scanners at this facility use dose modulation, iterative reconstruction, and/or weight based d osing when appropriate to reduce radiation dose to as low as reasonably achievable (ALARA). [facility]: Dose Right [facility]: CareDose [facility]: Dose Right [facility]: Teradose 4D [facility]: [employer] CONTRAST TYPE AND DOSE: 100 mL Omnipaque 350- low osmolar. RENAL FUNCTION: GFR > 60. LIMITATIONS: None. FINDINGS: LOWER CHEST: Refer to the separate report of the CT of the chest. LIVER: The morphology of the liver is noncirrhotic. The portal veins are patent. There is no hepati c mass. SPLEEN: No splenomegaly or splenic mass. PANCREAS: No acute abnormality of the pancreas. GALLBLADDER: The gallbladder is surgically absent. ADRENAL GLANDS: Unchanged diffuse nodular enlargement of the left adrenal gland. RIGHT KIDNEY AND URETER: No solid masses. No calcifications. No hydronephrosis or hydroureter. LEFT KIDNEY AND URETER: No solid masses. No calcifications. No hydronephrosis or hydroureter. AORTA AND VESSELS: No aneurysm or dissection of the abdominal aorta. RETROPERITONEUM: No retroperitoneal adenopathy, hemorrhage or mass. BOWEL AND PERITONEAL CAVITY: Status post right hemicolectomy. There is no bowel obstruction, bowel w all thickening or pericolonic/ perienteric inflammation. The clustered peritoneal nodules inferior t o the right hepatic lobe that measure up to 11 mm (image 43 of series 3) are unchanged. There is no free intraperitoneal fluid or mesenteric/omental inflammation. APPENDIX: Surgically absent. PELVIS: The uterus is surgically absent. The nodule in the right hemipelvis (image 64 of series 3) t hat measures 10 mm in short axis diameter is unchanged. There is no other abnormality of the adnexa that is apparent on CT. The urinary bladder is contracted. ABDOMINAL WALL: No mass or hernia. BONES: No fracture or osseous lesion. OTHER: Intramedullary nail in the right femur. IMPRESSION: Status post right hemicolectomy, cholecystectomy, appendectomy and hysterectomy. The pe ritoneal nodules inferior to the right hepatic lobe and the nodule in the right hemipelvis (image 64 of series 3) are unchanged. There is no acute intra-abdominal abnormality. TECHNICAL DOCUMENTATION: JOB ID: [id number] Quality ID # 436: Final reports with documentation of one or more dose reduction techniques (e.g., Au tomated exposure control, adjustment of the mA and/or kV according to patient size, use of iterative reconstruction technique) 2010 [email or web address]- All Rights Reserved Reading location - IP/workstation name: [email or web address]
== END ==
LOC: RAD 11:56
PROVIDERS: ATTEND Physician Assistant Medical
DX: C18.2 Malignant neoplasm of ascending colon (principal)
CPT/HCPCS: 71260; 74177; 82565

== ENCOUNTER → 2019-12-30 | Outpatient (CLI) | payer MEDICARE, MEDICAID ==
--- NOTE | 2019-12-30 14:52 | RADIOLOGY REPORT (SQ) ---
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 NUMBER OF VIEWS: Three views. TECHNIQUE: Internal rotation, external rotation, and Y view images acquired of the right shoulder. LIMITATIONS: None. FINDINGS: MINERALIZATION: Normal. BONES: No acute fracture. No worrisome bone lesions. JOINTS: No dislocation. VISUALIZED LUNGS AND RIBS: No pneumothorax. No rib fracture. SOFT TISSUES: No radiopaque foreign body. OTHER: No other significant finding. IMPRESSION: NEGATIVE STUDY OF THE RIGHT SHOULDER. NO RADIOGRAPHIC EVIDENCE OF ACUTE INJURY. TECHNICAL DOCUMENTATION: JOB ID: [id number] 2010 [employer]- All Rights Reserved Reading location - IP/workstation name: [email or web address]
--- NOTE | 2019-12-30 17:04 | RADIOLOGY REPORT (SQ) ---
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 Previous colon resection in June 2016. COMPARISON: CT chest, abdomen and pelvis, 10/24/2019. CT chest, abdomen and pelvis, 04/18/2019. CT ch est, abdomen and pelvis, 01/10/2019. PET CT, 02/11/2017. CT abdomen and pelvis 06/25/2016. CONTRAST TYPE AND DOSE: contrast/concentration: Isovue 350.00 mmol/ml; Total Contrast Delivered: 83. 0 ml; Total Saline Delivered: 72.0 ml RENAL FUNCTION: GFR > 60. TECHNIQUE: CT scan of the chest performed using helical scanning technique with dynamic intravenous contrast injection. Images reviewed with lung, soft tissue and bone windows. Reconstructed coronal a nd sagittal MPR images reviewed. All images stored on PACS. CT scan of the abdomen and pelvis performed with intravenous and oral contrast using helical scanning technique with dynamic intravenous contrast injection. Images reviewed with lung, soft tissue and b one windows. Reconstructed coronal and sagittal MPR images reviewed. Delayed images for evaluation of the urinary system also acquired and evaluated. All images stored on PACS. All CT scanners at this facility use dose modulation, iterative reconstruction, and/or weight based d osing when appropriate to reduce radiation dose to as low as reasonably achievable (ALARA). [facility]: Dose Right [facility]: CareDose [facility]: Dose Right [facility]: Teradose 4D [facility]: [employer] RADIATION DOSE: CT Rad equipment meets quality standard of care and radiation dose reduction techniq ues were employed. CTDIvol: 13.7 - 23.0 mGy. DLP: 3006 mGy-cm. . LIMITATIONS: None. FINDINGS: CHEST: AXILLAE: No adenopathy. CHEST WALL: No masses. No subcutaneous air. LUNGS: Trachea has normal caliber and appearance. No bronchial wall thickening or bronchiectasis. I nterval decrease in rounded atelectasis/ pleural scarring at the left lung base since previous examin ation. No suspicious pulmonary nodules. No focal consolidation. PLEURA: No effusions. No calcifications. THYROID: No masses or significant asymmetry. HILAR AND MEDIASTINAL STRUCTURES: No identified masses or abnormal nodes. AORTA AND GREAT VESSELS: No aneurysm. No dissection. PULMONARY ARTERIES: No identified pulmonary emboli. Study not optimized for the pulmonary arteries. HEART: No pericardial effusion. HARDWARE AND LIFELINES: A right MediPort catheter with tip at the cavoatrial junction is unchanged. BONES: No significant finding. OTHER: A small supradiaphragmatic lymph node at the right hemidiaphragm is stable. ABDOMEN AND PELVIS: LIVER: Normal size and contour. Mild diffuse hepatic steatosis. No focal hepatic mass. Hepatic and portal veins are patent. No biliary ductal dilation. SPLEEN: Normal size. No focal lesions. PANCREAS: No masses. No significant calcifications. No adjacent inflammation or peripancreatic flui d collections. Pancreatic duct not dilated. GALLBLADDER: Surgically absent. ADRENAL GLANDS: No significant masses or asymmetry. RIGHT KIDNEY AND URETER: No solid masses. No significant calcifications. No hydronephrosis or hyd roureter. LEFT KIDNEY AND URETER: No solid masses. No significant calcifications. No hydronephrosis or hydr oureter. AORTA AND VESSELS: No aneurysm. No dissection. Renal arteries, SMA, celiac without stenosis. RETROPERITONEUM: No retroperitoneal adenopathy, hemorrhage or masses. LARGE AND SMALL BOWEL: Status post right hemicolectomy. No bowel obstruction. No evidence of bowel wall thickening or mass. APPENDIX: Surgically absent. ABDOMINAL WALL: No hernia or masses. PERITONEAL CAVITY: No pneumoperitoneum. Peritoneal thickening in the right pericolic gutter stable o michelle multiple previous examinations. Peritoneal nodule in the right pelvis, unchanged. No peritoneal nodularity. PELVIS: Post hysterectomy. No adnexal mass. Urinary bladder has normal contour. BONES: No significant or acute findings. OTHER: No other significant finding. IMPRESSION: 1. Since the previous examination on 09/24/2019, there is been no significant interval change. No bri dence of metastatic disease in the chest, abdomen or pelvis. 2. Stable peritoneal nodule and peritoneal thickening in the right abdomen. No new peritoneal nodula rity or ascites. 3. Mild hepatic steatosis. 4. Interval improvement in atelectasis at the left lung base. No acute cardiopulmonary disease. TECHNICAL DOCUMENTATION: JOB ID: [id number] Quality ID # 436: Final reports with documentation of one or more dose reduction techniques (e.g., Au tomated exposure control, adjustment of the mA and/or kV according to patient size, use of iterative reconstruction technique) 2010 [employer]- All Rights Reserved Reading location - IP/workstation name: [email or web address]
== END ==
LOC: RAD 13:20
PROVIDERS: ATTEND Internal Medicine
DX: C18.2 Malignant neoplasm of ascending colon (principal); M25.511 Pain in right shoulder; K76.0 Fatty (change of) liver, not elsewhere classified
CPT/HCPCS: 71260; 74177; 82565

== ENCOUNTER → 2020-04-27 | Outpatient (CLI) | payer MEDICARE, MEDICAID ==
--- NOTE | 2020-04-27 15:30 | RADIOLOGY REPORT (SQ) ---
EXAM DESCRIPTION: CT ABD/PELVIS WITH IV ORAL IMAGES COMPLETED DATE/TIME: 04/27/2020 2:34 pm REASON FOR STUDY: (C18.2)MALIGNANT NEOPLASM OF ASCENDING COLON C18.2 MALIGNANT NEOPLASM OF ASCENDIN G COLON COMPARISON: 12/30/2019 TECHNIQUE: CT scan of the abdomen and pelvis performed using helical scanning technique with dynamic intravenous contrast injection. No oral contrast. Images reviewed with lung, soft tissue, and bone windows. Reconstructed coronal and sagittal MPR images reviewed. Delayed images for evaluation of the urinary system also acquired. All images stored on PACS. All CT scanners at this facility use dose modulation, iterative reconstruction, and/or weight based d osing when appropriate to reduce radiation dose to as low as reasonably achievable (ALARA). [facility]: Dose Right [facility]: CareDose [facility]: Dose Right [facility]: Teradose 4D [facility]: [employer] CONTRAST TYPE AND DOSE: contrast/concentration: Isovue 350.00 mmol/ml; Total Contrast Delivered: 100 .0 ml; Total Saline Delivered: 72.0 ml RENAL FUNCTION: GFR > 60. RADIATION DOSE: . LIMITATIONS: None. FINDINGS: LOWER CHEST: See separate report of the CT of the chest. LIVER: Normal size. No masses. No dilated ducts. SPLEEN: Normal size. No focal lesions. PANCREAS: No masses. No significant calcifications. No adjacent inflammation or peripancreatic fluid collections. Pancreatic duct not dilated. GALLBLADDER: Surgically absent. ADRENAL GLANDS: No significant masses or asymmetry. RIGHT KIDNEY AND URETER: No solid masses. No significant calcifications. No hydronephrosis or hyd roureter. LEFT KIDNEY AND URETER: No solid masses. No significant calcifications. No hydronephrosis or hydr oureter. AORTA AND VESSELS: No aneurysm. No dissection. Renal arteries, SMA, celiac without stenosis. RETROPERITONEUM: No retroperitoneal adenopathy, hemorrhage or masses. BOWEL AND PERITONEAL CAVITY: Mesenteric lymph node measuring just over 10 mm in the right lower quadr ant image 61 is unchanged over multiple exams. No ascites. APPENDIX: Surgically absent. PELVIS: No mass. No free fluid. Normal bladder. ABDOMINAL WALL: No masses. No hernias. BONES: No significant or acute findings. OTHER: No other significant finding. IMPRESSION: Stable small mesenteric node. No significant change. TECHNICAL DOCUMENTATION: JOB ID: [id number] Quality ID # [id number]: Final reports with documentation of one or more dose reduction techniques (e.g., Au tomated exposure control, adjustment of the mA and/or kV according to patient size, use of iterative reconstruction technique) 2010 [employer]- All Rights Reserved Reading location - IP/workstation name: [email or web address]
--- NOTE | 2020-04-27 15:59 | RADIOLOGY REPORT (SQ) ---
EXAM DESCRIPTION: CT CHEST WITH IMAGES COMPLETED DATE/TIME: 04/27/2020 2:34 pm REASON FOR STUDY: (C18.2)MALIGNANT NEOPLASM OF ASCENDING COLON C18.2 MALIGNANT NEOPLASM OF ASCENDIN G COLON COMPARISON: 12/30/2019 TECHNIQUE: CT scan of the chest performed using helical scanning technique with dynamic intravenous contrast injection. Images reviewed with lung, soft tissue and bone windows. Reconstructed coronal and sagittal MPR and MIP images reviewed. All images stored on PACS. All CT scanners at this facility use dose modulation, iterative reconstruction, and/or weight based d osing when appropriate to reduce radiation dose to as low as reasonably achievable (ALARA). [facility]: Dose Right [facility]: CareDose [facility]: Dose Right [facility]: Teradose 4D [facility]: [employer] CONTRAST TYPE AND DOSE: 100 mL Omnipaque 350- low osmolar. RENAL FUNCTION: Creatinine 0.7 RADIATION DOSE: CT Rad equipment meets quality standard of care and radiation dose reduction techniq ues were employed. CTDIvol: 12.3 - 20.7 mGy. DLP: 2622 mGy-cm. . LIMITATIONS: None. FINDINGS: LUNGS AND PLEURA: No suspicious nodule or mass. Incidental note is made of 3 punctate kay cified granulomas within the right upper lobe. No focal consolidation. No pleural effusion. No pne umothorax. HILAR AND MEDIASTINAL STRUCTURES: No identified masses or abnormal nodes. HEART AND VASCULAR STRUCTURES: No aneurysm or dissection. No central pulmonary emboli. No pericardi al effusion. HARDWARE: Port-A-Cath terminates at the cavoatrial junction. UPPER ABDOMEN: See separate report of the CT of the abdomen. THYROID AND OTHER SOFT TISSUES: Multinodular thyroid. No adenopathy. BONES: No significant finding. OTHER: No other significant finding. IMPRESSION: Stable CT appearance of the chest without evidence of primary neoplasm or metastatic dis ease. No acute findings. TECHNICAL DOCUMENTATION: JOB ID: [id number] Quality ID # [id number]: Final reports with documentation of one or more dose reduction techniques (e.g., Au tomated exposure control, adjustment of the mA and/or kV according to patient size, use of iterative reconstruction technique) 2010 [employer]- All Rights Reserved Reading location - IP/workstation name: [email or web address]
== END ==
LOC: RAD 11:22
PROVIDERS: ATTEND Physician Assistant Medical
DX: C18.2 Malignant neoplasm of ascending colon (principal)
CPT/HCPCS: 71260; 74177; 82565

== ENCOUNTER → 2020-05-06 | Outpatient (CLI) | payer MEDICARE, MEDICAID ==
--- NOTE | 2020-05-06 11:14 | RADIOLOGY REPORT (SQ) ---
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 Multiplanar imaging to include fat sen sitive sequences such as T1, water sensitive sequences such as FST2/STIR, cartilage sensitive sequenc es such as FSPD/gradient-echo sequences. LIMITATIONS: None. FINDINGS: BONE MARROW AND CORTEX: No worrisome bone lesions or marrow replacement. No occult fractur es. JOINT OR BURSAL EFFUSION: Scant fluid is seen within the subacromial bursa and acromioclavicular join t. No glenohumeral effusion. GLENO-HUMERAL ARTICULATION: Normal articulation. No subluxation. No cystic change. No osteophytes or cartilage loss. ACROMION AND AC JOINT: Mild acromioclavicular arthropathy with with above-mentioned joint effusion a nd subacromial bursal effusion. Small marginal osteophytes. ROTATOR CUFF AND INTERVAL: Mild tendinopathy of the supraspinatus. The infraspinatus, subscapularis, and teres minor tendons demonstrate normal caliber and signal. Rotator cuff muscle bulk and signal appears uniform. LABRUM AND BICEPS LABRAL COMPLEX: Intact. No labral tear. Intra-articular long-head biceps tendon n ormal. Distal biceps in normal location in bicipital groove. REMAINDER OF LABRUM AND IGHL : No gross tear or paralabral cyst formation. Labral evaluation is less than optimal without joint distention. No thickening of IGHL to suggest adhesive capsulitis. PERIARTICULAR AND ADJACENT SOFT TISSUES: No masses or abnormal nodes. OTHER: No other significant finding. IMPRESSION: Constellation of findings consistent with shoulder impingement syndrome. TECHNICAL DOCUMENTATION: JOB ID: [id number] 2010 [employer]- All Rights Reserved Reading location - IP/workstation name: [email or web address]
== END ==
LOC: RAD 09:01
PROVIDERS: ATTEND Internal Medicine
DX: C18.2 Malignant neoplasm of ascending colon (principal); M25.511 Pain in right shoulder